=== PATIENT | female | born 1965 | race Caucasian/White ===

== ENCOUNTER 2017-11-30 00:55 | Outpatient (CLI) | payer OTHER, SELFPAY ==
--- NOTE | 2017-11-30 11:40 | DI.MRI_ITS ---
SYMPTOMS/DIAGNOSIS: RT KNEE PAIN, INSTABILITY, ? MENISCUS TEAR MRI OF THE RIGHT KNEE: Routine noncontrast examination was performed. The anterior cruciate and posterior cruciate ligaments appear intact as do the medial and lateral collateral ligaments. There is marked thickening and hyperintense signal within the patellar tendon. There does appear to be some disruption of the fibers of the patellar tendon internally. There is mild edema seen in the soft tissues surrounding the patellar tendon. The medial and lateral retinaculum are intact. There is mild increased T 2 signal within the popliteus tendon suspicious for tendinosis. There is no evidence of a meniscal tear. The articular cartilage is well maintained. The marrow signal shows no evidence of an occult fracture or avascular necrosis. There is a small joint effusion present. There is a small popliteal cyst measuring 2.2 cm in length. The muscles show normal signal and size. IMPRESSION: 1. Severe patellar tendinitis with findings suspicious for a tear of the internal substance of the tendon proximally. 2. Tendinopathy involving the popliteus tendon. 3. No evidence of a meniscal tear.
== END 2017-11-30 01:15 ==
PROVIDERS: PCP Nurse Practitioner Family; Visit Provider Orthopaedic Surgery
DX: M25.561 Pain in right knee (principal); M25.361 Other instability, right knee; M76.51 Patellar tendinitis, right knee
CPT/HCPCS: 73721

== ENCOUNTER 2017-12-03 11:43 | Emergency (ER) | payer OTHER, SELFPAY ==
[2017-12-03 12:19] VITALS: BP 121/72; PULSE 86; TEMP 36.7; O2SAT 98
[2017-12-03 13:33] VITALS: PULSE 100; RESP 18; TEMP 36.9; O2SAT 96
[2017-12-03] MEDS: Diazepam 5 MG TAB PO (14:59)
[2017-12-03] MEDS: Acetaminophen 500 MG TAB 1000 MG PO (14:59)
[2017-12-03] MEDS: Ketorolac 60 MG/2 ML VIAL IM (14:59)
[2017-12-03] MEDS: Lidocaine 5% Patch 1 PATCH TP (15:02)
--- NOTE | 2017-12-03 15:54 | ED.GENADUL_ITS ---
Discharge Plan Disposition Patient Disposition: HOME Condition: Fair Discharge Details Chief Complaint: Nk/Back Pain Clinical Impression: Back pain Primary Care Provider: Ann Khoury ED Provider: Tracie Harper Home Meds and New Rx's Prescriptions: New diazepam [Valium] 5 mg tablet 5 mg PO TID PRN (Reason: muscle spasm) Qty: 5 RF: 0 Continue lidocaine [Lidoderm] 1 PATCH adhesive patch,medicated 1 patch Topical DIRECTED PRNQty: 5 RF: 0 ibuprofen 600 MG tablet 600 mg PO Q8H PRNQty: 15 RF: 0 Discontinued cyclobenzaprine 10 MG tablet 10 mg PO Q8H PRN (Reason: Spasms) Qty: 15 RF: 0 Discharge Instructions Instructions: Back Pain (ED) Additional Instructions: Encourage hydration. May take Tylenol and/or ibuprofen as needed for discomfort. You may take 1000 mg of Tylenol 4 times daily, 600 mg of ibuprofen 4 times daily. He may take the Valium as prescribed, 3 times daily. This will help with muscle spasm. If he develops fever/chills, increased pain, difficulty walking, sensation changes, change in her bowel or bladder habits or other new/worsening symptoms please seek care urgently once again. Please keep upcoming appointment with physical therapy and occupational health Referrals: Ann Khoury, [employer] [Primary Care Provider] - Discharge Data Discharge Date/Time-TO BE ENTERED AT DEPARTURE: 12/03/17 16:24 Medical Decision Making MDM Narrative Medical decision making narrative: Patient presents today with chief complaint of acute on chronic back pain. Had a severe exacerbation proximally 4 days ago after lifting. Since that time has had pain primarily on the right side of her back that radiates on the right buttock. Patient is ambulate with an antalgic gait. She does appear uncomfortable on exam. Pain is maximal near the area of L4 but is worse lateral to this. Pain maximal near the right SI joint. No saddle paresthesias. Good sensation lower extremities. 5 out of 5 strength in lower extremities. Reflexes are equal bilaterally in the lower extremities. No change in bowel or bladder habits. Patient reports she is responded well to muscle relaxers and anti-inflammatories in the past. Reports she has been to the emergency department once for similar episode at which time she received IM Toradol. Reports that this worked very well for her and is requesting a repeat dose of this. Patient has palpable muscle spasm. We will give her Toradol, Tylenol, apply Lidoderm patch and give oral Valium. Discussed this plan with the patient who is in agreement. I encouraged gentle stretching and frequent gentle mobility to help with muscle spasm. After the patient received Valium, Toradol, Tylenol and Lidoderm patches feeling much improved. Feels that she still has twinges. However, overall the pain is much improved and she feels she is ready to go home at this time. Patient will be discharged with Valium to help with muscle relaxation. Advised that she stop the Flexeril. Advised that she may not drive when taking the Valium. I did discuss Tylenol and ibuprofen use as well as [id number] topical patches that may be of benefit to help with her discomfort. We discussed new/worsening symptoms once he care urgently once again. Advised to keep her upcoming appointment with physical therapy and occupational health in 2 days time. All of her questions and concerns were addressed and she is in agreement with this plan. Ambulating out of department appears much improved, no longer ambulating with antalgic gait HPI - General Adult General Mode of arrival: ambulatory . Date/Time Provider Initiated Documentation: 12/03/17 13:44 . Limitations to Documentation: no limitations . Information obtained by: patient and family . HPI Narrative: Patient is a pleasant 52-year-old female, accompanied by her , with chief complaint of acute on chronic back pain. Patient reports that she has had back pain historically and has had issues with sciatica. 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 She was evaluated by occupational health the following day who prescribed Flexeril. She reports that typically Flexeril and Motrin works very well in alleviating her symptoms. Has been taking them as prescribed. However, despite this she reports that her pain has been increasing. Reports the pain is not debilitating but she is having difficulty with basic daily function secondary to pain. Reports the pain is radiating down the right buttock and she has tingling in the right buttock. Denies any change in her bowel or bladder habits. Denies any fevers or chills. Denies any fall or trauma to the back. Denies any altered sensation in her extremities. Has not noted weakness in her extremities. She reports that she has been laying low for the past few days. Does feel that when she is ambulatory her pain can improve going from a more central position to ambulating her pain can be excruciating. Last took ibuprofen and Flexeril around 3 AM. Related Data Previous Rx's Medication Instructions Recorded ibuprofen 600 mg PO Q8H PRN #15 tab-cap 04/06/17 lidocaine [Lidoderm] 1 patch TOPICAL DIRECTED PRN #5 04/06/17 patch diazepam [Valium] 5 mg PO TID PRN #5 tab 12/03/17 Allergies Allergy/AdvReac Type Severity Reaction Status Date / Time sulfamethoxazole Allergy Severe Anaphylaxsi Unverified 11/30/17 15:30 [From Bactrim] s trimethoprim [From Bactrim] Allergy Severe Anaphylaxsi Unverified 11/30/17 15:30 s General Stated Complaint: Nk/Back Pain NICK: 3 Review of Systems Constitutional Reports as per HPI, Denies chills, Reports difficulty sleeping (Patient reports of back pain has been making it difficult for her to sleep) and Denies fever(s) Cardiovascular Denies chest pain and Denies dyspnea Respiratory Denies cough and Denies dyspnea Gastrointestinal Denies abdominal pain, Denies change in bowel habits, Denies nausea and Denies vomiting Genitourinary Reports as per HPI and Denies urinary incontinence Musculoskeletal Reports as per HPI Integumentary/Breasts Denies rash Neurologic Reports as per HPI PFSH Family History Father Colon cancer Mother Cerebrovascular accident Medical History Lumbar strain (Acute) Right shoulder strain (Acute) Depression (Resolved) Perimenopause Social History Smoking/Tobacco Use Status: Never Surgical History Fasciotomy, Foot Exam Const General: cooperative, healthy appearing, uncomfortable (Patient appears uncomfortable, is bending forward and leaning to the left slightly in attempt to find comfortable position for her back), no acute distress, well developed and well groomed Nutritional Appearance: average body habitus Orientation: alert and awake Eyes General: appearance normal, both eyes and all related structures Neck Neck: normal visual inspection, full ROM and nontender Chest Chest: normal inspection of the chest Resp Effort & Inspection: normal respiratory effort, able to speak in complete sentences and no respiratory distress Auscultation: clear to auscultation bilaterally Cardio Rate: regular rate Rhythm: regular rhythm Heart Sounds: S1 normal and S2 normal GI Inspection: normal to inspection and non-distended Palpation: not firm, no guarding and nontender Back/Spine/Pelvis Back: no CVA tenderness Cervical Spine: normal cervical lordosis and cervical ROM normal Thoracic/Lumbar Spine: No thoracic and lumbar spine normal to inspection ( Patient has discomfort with palpation in the area of L4. Pain worse lateral, particular of the right side), No thoraco-lumbar ROM normal (Pain particular with forward flexion), No straight leg raise negative bilaterally (Patient is able to straight leg raise the right side approximately 30?, left to 45?), lumbar spinal tenderness and straight leg raise positive Pelvis: no pain with anterior-posterior compression, no pain with lateral compression, no buttock ecchymosis and no buttock tenderness Sacroiliac joints: on the right tender to palpation Skin General skin exam: no rashes or lesions noted Lesions: no lesions Rashes: no rashes Trauma: no lacerations or abrasions Neuro General: alert and awake Cognition: normal cognition Speech: speech normal Gait: antalgic Motor: muscle tone normal throughout and strength 5/5 throughout Sensory Exam: no sensory deficits noted (No saddle paresthesias) Coordination: [id number] test normal Extrem General: normal to inspection, normal capillary refill, no joint enlargement, no clubbing, cyanosis or edema, no pedal edema and no calf tenderness Psych Appearance: grossly normal and well kempt Mental Status: mental status grossly normal Speech and Movement: speech and movement normal Mood: congruent mood Affect: normal affect Course Vital Signs Temperature 36.7 C 12/03/17 12:19 Pulse 86 12/03/17 12:19 Blood Pressure 121/72 12/03/17 12:19 Pulse Oximetry 98 12/03/17 12:19 Temperature 36.9 C 12/03/17 13:33 Pulse 100 H 12/03/17 13:33 Respiratory Rate 18 12/03/17 13:33 Blood Pressure 121/72 12/03/17 12:19 Pulse Oximetry 96 12/03/17 13:33
[2017-12-03] MEDS: Diazepam 5 MG TAB 15 MG PO (16:08)
== END 2017-12-03 16:24 | disposition home or self-care (01) ==
PROVIDERS: Emergency Provider Physician Assistant; PCP Nurse Practitioner Family
DX: M54.5 Low back pain (principal); G89.29 Other chronic pain; X50.0XXA Overexertion from strenuous movement or load, initial encounter; Y99.0 Civilian activity done for income or pay
CPT/HCPCS: 96372; 99284; J1885

== ENCOUNTER 2018-03-13 17:05 | Emergency (ER) | payer OTHER, SELFPAY ==
[2018-03-13 17:09] VITALS: BP 134/78; PULSE 77; RESP 16; TEMP 36.9; O2SAT 95
--- NOTE | 2018-03-13 17:14 | W.ED.GENAD ---
Discharge Plan Disposition Patient Disposition: HOME Condition: Fair Discharge Details Chief Complaint: EyeProblem Clinical Impression: Hordeolum externum left upper eyelid Primary Care Provider: Ann Khoury ED Provider: Tracie Harper Home Meds and New Rx's Prescriptions: Continued naproxen sodium [Aleve] 220 mg Capsule 220 mg PO BID PRNRF: 0 Discharge Instructions Instructions: Stye (ED) Additional Instructions: Warm compresses frequently to left eye. Wash with baby shampoo. Tylenol and/or Ibuprofen as needed for discomfort. Please follow up with primary care next week if not improving. If you develop increased pain, visual changes, fevers/chills, spreading of the redness or other new/worsening symptoms please seek care urgently once again. Referrals: Ida Zeng [Emergency Nurse] - Discharge Data Discharge Date/Time-TO BE ENTERED AT DEPARTURE: 03/13/18 17:44 Medical Decision Making Patient is a 52 year old female, accompanied by her , with c/c of left eye discomfort that began yesterday. Has felt pressure to the lateral aspect of her eye, particularly with blinking or movement. No FB sensation, no trauma. States that she noted this yesterday afternoon while at rest. Has had some tearing, no purulent discharge. No fevers/chills. No visual changes. On exam, patient has a stye to the lateral upper lid with small amount of swelling associated with this. No discharge. Eye is not injected. Pupils equal, round, reactive. EOM intact. Visual acuity preformed by nursing staff, equal bilaterally. Using Tonopen, pressures were measured. Pressure in left eye 16. No evidence of periorbital cellulitis. Advised that her symptoms and swelling are most consistent with stye. Advised warm compresses, tylenol/Ibuprofen, washing the eye with baby shampoo. Discussed new/worsening sytmpoms in depth and when to seek care urgently once again. All of her questions and concerns were addressed, she is in agreement with this plan. She will follow up [facility] primary care in one week if not improving. HPI General Mode of arrival: ambulatory. Date/Time Provider Initiated Documentation: 03/13/18 17:13. Limitations to Documentation: no limitations. Information obtained by: patient and family. History of Present Illness 52 year old F presents to the emergency department with the chief complaint of left eye discomfort, described as moderate, with intensity rated at 5. Quality is described as aching, and is localized to the eyes. Patient reports no radiation. Patient started experiencing this day(s) and it has been constant. No relieving factors improve symptom(s), No exacerbating factors reported . Patient notes no other symptoms.; denies chest pain, cough, fever/chills, headaches, nausea/vomiting and rash. Patient did receive the following treatments prior to arrival, none Related Data Home Medications Medication Instructions Recorded Confirmed naproxen sodium [Aleve] 220 mg PO BID PRN 03/13/18 03/13/18 Allergies Allergy/AdvReac Type Severity Reaction Status Date / Time sulfamethoxazole Allergy Severe Anaphylaxsi Unverified 03/13/18 17:12 [From Bactrim] s trimethoprim [From Bactrim] Allergy Severe Anaphylaxsi Unverified 03/13/18 17:12 s General Stated Complaint: EyeProblem NICK: 4 Review of Systems Constitutional Reports as per HPI and Denies headache(s) Eyes Reports as per HPI, Reports change in vision (blurred with tearing), Reports eye discharge (has been teary intermittently), Reports irritation, Reports itchy eyes (left lateral eye), Denies loss of peripheral vision, Denies loss of vision and Denies photophobia ENT Reports as per HPI, Denies headache(s), Denies nasal congestion and Denies nasal discharge Cardiovascular Reports as per HPI, Denies chest pain and Denies dyspnea Respiratory Reports as per HPI, Denies cough and Denies dyspnea Gastrointestinal Reports as per HPI, Denies abdominal pain, Denies change in bowel habits, Denies nausea and Denies vomiting Integumentary/Breasts Reports as per HPI and Denies rash Neurologic Denies headache(s) and Denies loss of vision Allergic/Immunologic Reports itchy eyes (left lateral eye) [facility] Medical History Lumbar strain (Acute) Depression (Resolved) Right shoulder strain (Resolved) Perimenopause Surgical History Fasciotomy, Foot Social History household members: spouse and children 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 [employer] Smoking/Tobacco Use Status: Never Exam Const General: cooperative, healthy appearing, comfortable, no acute distress, well developed and well groomed Nutritional Appearance: average body habitus and well nourished Orientation: alert and awake [facility] Head: normal to inspection, normocephalic and atraumatic Ears: hearing grossly normal bilaterally, external ears normal and TM's normal bilaterally General nose exam: external nose normal and nares normal Face and sinus: normal facial exam, sinuses nontender and face symmetric Mouth: oral mucosae normal, lip normal, tongue normal, oropharynx normal and moist mucous membranes Teeth and gingiva: dentition normal Throat: posterior oropharynx normal, tonsils normal and uvula midline Eyes Eyelids: eyelid abnormality left upper eyelid swelling, tenderness and other (stye along lateral boarder) Conjunctivae: conjunctivae normal Sclera: sclerae normal Pupils: PERRL EOM: EOM intact bilaterally Neck Neck: normal visual inspection, full ROM, no lymphadenopathy and no meningeal signs Resp Effort & Inspection: normal respiratory effort, able to speak in complete sentences and no respiratory distress Auscultation: clear to auscultation bilaterally, no rales, no rhonchi and no wheezes Cardio Rate: regular rate Rhythm: regular rhythm Heart Sounds: S1 normal and S2 normal Skin General skin exam: no rashes or lesions noted Neuro General: alert and awake Cognition: normal cognition Speech: speech normal Gait: normal gait Psych Appearance: grossly normal and well kempt Mental Status: mental status grossly normal Speech and Movement: speech and movement normal Course Vital Signs Temperature 36.9 C 03/13/18 17:09 Pulse 77 03/13/18 17:09 Respiratory Rate 16 03/13/18 17:09 Blood Pressure 134/78 03/13/18 17:09 Pulse Oximetry 95 03/13/18 17:09 Temperature 36.9 C 03/13/18 17:09 Temperature Source Skin 03/13/18 17:09 Pulse 77 03/13/18 17:09 Respiratory Rate 16 03/13/18 17:09 Respiratory Effort Non-Labored 03/13/18 17:11 Blood Pressure 134/78 03/13/18 17:09 Pulse Oximetry 95 03/13/18 17:09 Pain Level 5 03/13/18 17:09
--- NOTE | 2018-03-14 13:35 | ED.GENADUL_ITS ---
Discharge Plan Disposition Patient Disposition: HOME Condition: Fair Discharge Details Chief Complaint: EyeProblem Clinical Impression: Hordeolum externum left upper eyelid Primary Care Provider: Ann Khoury ED Provider: Tracie Harper Home Meds and New Rx's Prescriptions: Continued naproxen sodium [Aleve] 220 mg Capsule 220 mg PO BID PRNRF: 0 Discharge Instructions Instructions: Stye (ED) Additional Instructions: Warm compresses frequently to left eye. Wash with baby shampoo. Tylenol and/or Ibuprofen as needed for discomfort. Please follow up with primary care next week if not improving. If you develop increased pain, visual changes, fevers/chills, spreading of the redness or other new/worsening symptoms please seek care urgently once again. Referrals: Ida Zeng [Emergency Nurse] - Discharge Data Discharge Date/Time-TO BE ENTERED AT DEPARTURE: 03/13/18 17:44 Medical Decision Making Patient is a 52 year old female, accompanied by her , with c/c of left eye discomfort that began yesterday. Has felt pressure to the lateral aspect of her eye, particularly with blinking or movement. No FB sensation, no trauma. States that she noted this yesterday afternoon while at rest. Has had some tearing, no purulent discharge. No fevers/chills. No visual changes. On exam, patient has a stye to the lateral upper lid with small amount of swelling associated with this. No discharge. Eye is not injected. Pupils equal, round, reactive. EOM intact. Visual acuity preformed by nursing staff, equal bilaterally. Using Tonopen, pressures were measured. Pressure in left eye 16. No evidence of periorbital cellulitis. Advised that her symptoms and swelling are most consistent with stye. Advised warm compresses, tylenol/Ibuprofen, washing the eye with baby shampoo. Discussed new/worsening sytmpoms in depth and when to seek care urgently once again. All of her questions and concerns were addressed, she is in agreement with this plan. She will follow up [facility] primary care in one week if not improving. HPI General Mode of arrival: ambulatory . Date/Time Provider Initiated Documentation: 03/13/18 17:13 . Limitations to Documentation: no limitations . Information obtained by: patient and family . History of Present Illness 52 year old F presents to the emergency department with the chief complaint of left eye discomfort, described as moderate, with intensity rated at 5. Quality is described as aching, and is localized to the eyes. Patient reports no radiation. Patient started experiencing this day(s) and it has been constant. No relieving factors improve symptom(s), No exacerbating factors reported . Patient notes no other symptoms.; denies chest pain, cough, fever/chills, headaches, nausea/vomiting and rash. Patient did receive the following treatments prior to arrival, none Related Data Home Medications Medication Instructions Recorded Confirmed naproxen sodium [Aleve] 220 mg PO BID PRN 03/13/18 03/13/18 Allergies Allergy/AdvReac Type Severity Reaction Status Date / Time sulfamethoxazole Allergy Severe Anaphylaxsi Unverified 03/13/18 17:12 [From Bactrim] s trimethoprim [From Bactrim] Allergy Severe Anaphylaxsi Unverified 03/13/18 17:12 s General Stated Complaint: EyeProblem NICK: 4 Review of Systems Constitutional Reports as per HPI and Denies headache(s) Eyes Reports as per HPI, Reports change in vision (blurred with tearing), Reports eye discharge (has been teary intermittently), Reports irritation, Reports itchy eyes (left lateral eye), Denies loss of peripheral vision, Denies loss of vision and Denies photophobia ENT Reports as per HPI, Denies headache(s), Denies nasal congestion and Denies nasal discharge Cardiovascular Reports as per HPI, Denies chest pain and Denies dyspnea Respiratory Reports as per HPI, Denies cough and Denies dyspnea Gastrointestinal Reports as per HPI, Denies abdominal pain, Denies change in bowel habits, Denies nausea and Denies vomiting Integumentary/Breasts Reports as per HPI and Denies rash Neurologic Denies headache(s) and Denies loss of vision Allergic/Immunologic Reports itchy eyes (left lateral eye) [facility] Medical History Lumbar strain (Acute) Depression (Resolved) Right shoulder strain (Resolved) Perimenopause Surgical History Fasciotomy, Foot Social History household members: spouse and children 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 [employer] Smoking/Tobacco Use Status: Never Exam Const General: cooperative, healthy appearing, comfortable, no acute distress, well developed and well groomed Nutritional Appearance: average body habitus and well nourished Orientation: alert and awake [facility] Head: normal to inspection, normocephalic and atraumatic Ears: hearing grossly normal bilaterally, external ears normal and TM's normal bilaterally General nose exam: external nose normal and nares normal Face and sinus: normal facial exam, sinuses nontender and face symmetric Mouth: oral mucosae normal, lip normal, tongue normal, oropharynx normal and moist mucous membranes Teeth and gingiva: dentition normal Throat: posterior oropharynx normal, tonsils normal and uvula midline Eyes Eyelids: eyelid abnormality left upper eyelid swelling, tenderness and other (stye along lateral boarder) Conjunctivae: conjunctivae normal Sclera: sclerae normal Pupils: PERRL EOM: EOM intact bilaterally Neck Neck: normal visual inspection, full ROM, no lymphadenopathy and no meningeal signs Resp Effort & Inspection: normal respiratory effort, able to speak in complete sentences and no respiratory distress Auscultation: clear to auscultation bilaterally, no rales, no rhonchi and no wheezes Cardio Rate: regular rate Rhythm: regular rhythm Heart Sounds: S1 normal and S2 normal Skin General skin exam: no rashes or lesions noted Neuro General: alert and awake Cognition: normal cognition Speech: speech normal Gait: normal gait Psych Appearance: grossly normal and well kempt Mental Status: mental status grossly normal Speech and Movement: speech and movement normal Course Vital Signs Temperature 36.9 C 03/13/18 17:09 Pulse 77 03/13/18 17:09 Respiratory Rate 16 03/13/18 17:09 Blood Pressure 134/78 03/13/18 17:09 Pulse Oximetry 95 03/13/18 17:09 Temperature 36.9 C 03/13/18 17:09 Temperature Source Skin 03/13/18 17:09 Pulse 77 03/13/18 17:09 Respiratory Rate 16 03/13/18 17:09 Respiratory Effort Non-Labored 03/13/18 17:11 Blood Pressure 134/78 03/13/18 17:09 Pulse Oximetry 95 03/13/18 17:09 Pain Level 5 03/13/18 17:09
== END 2018-03-13 17:44 | disposition home or self-care (01) ==
PROVIDERS: Emergency Provider Physician Assistant; PCP Nurse Practitioner Family
DX: H00.014 Hordeolum externum left upper eyelid (principal)
CPT/HCPCS: 99282

== ENCOUNTER 2018-04-20 00:13 | Outpatient (CLI) | payer OTHER, SELFPAY ==
--- NOTE | 2018-04-20 11:34 | DI.MRI_ITS ---
SYMPTOM/DIAGNOSIS: RT KNEE PAIN, PATELLAR TENDINITIS RIGHT KNEE MRI: 04/20/18 MRI examination of the knee was performed according to the usual protocol. No significant bony signal abnormality seen. The articular cartilage appears fairly well maintained as visualized. No cruciate ligament tear is seen. No meniscal tear is seen. Comparison with previous MRI of 11/30/17 again shows markedly abnormal appearance of the patellar tendon with marked intrasubstance signal abnormality and marked thickening of the tendon. The findings appear similar to the previous examination with perhaps slightly smaller portion of the tendon involved with these abnormalities. Previous examination also showed abnormal signal associated with the popliteus muscle and tendon and these findings are unchanged. CONCLUSION: Fairly stable appearance of patellar tendinitis and popliteus tendinitis. No gross interval change or slight interval improvement in the appearance of the patellar tendon in comparison with 11/30/17.
== END 2018-04-20 00:33 ==
PROVIDERS: PCP Nurse Practitioner Family; Visit Provider Orthopaedic Surgery
DX: M25.561 Pain in right knee (principal); M76.51 Patellar tendinitis, right knee
CPT/HCPCS: 73721

== ENCOUNTER 2018-08-10 15:40 | Emergency (ER) | payer BC, SELFPAY ==
[2018-08-10 15:43] VITALS: BP 127/78; PULSE 97; RESP 16; TEMP 36.8; O2SAT 97
--- NOTE | 2018-08-10 15:56 | DI.RAD_ITS ---
SYMPTOMS/DIAGNOSIS: PERSISTENT COUGH PA AND LATERAL CHEST: Comparison is made with February,. The cardiac and mediastinal contours have a normal appearance. The lungs are well inflated and clear. No infiltrate or effusion is seen. IMPRESSION: Negative chest x-ray.
--- NOTE | 2018-08-10 15:58 | W.ED.GENAD ---
Discharge Plan Disposition Patient Disposition: HOME Condition: Improving Discharge Details Chief Complaint: RespSymp Clinical Impression: Persistent cough for 3 weeks or longer Primary Care Provider: Mona Rosado V ED Provider: Reymundo Santiago Home Meds and New Rx's Prescriptions: New prednisone 20 mg tablet 40 mg PO DAILY 5 Days Qty: 10 RF: 0 benzonatate [Tessalon Perles] 100 mg capsule 100 mg PO BID-TID PRN (Reason: cough) Qty: 14 RF: 0 Discharge Instructions Instructions: Acute Cough (ED) Additional Instructions: May use provided albuterol inhaler as instructed during times of illness to attenuate cough. Tessalon as needed for cough. Please take prednisone as prescribed. Follow-up with regular doctor if not improving in 7 to 10 days time. Return to the ER for any acute concerns. Medical Decision Making 52-year-old female presents with history of having bronchitis per her report 3 weeks ago and now with 2 weeks of persistent postinfectious cough. Is irritated and dry. She is afebrile, well-appearing with normal oxygenation. No wheezing on exam. Likely post bronchitic irritative cough, must exclude underlying mass or infiltrate and patient referred for chest X ray which is unremarkable for acute findings. Will treat with albuterol inhaler, Tessalon Perles, brief burst of prednisone. She understands homecare as well as follow-up and return precautions. HPI General Mode of arrival: ambulatory. Date/Time Provider Initiated Documentation: 08/10/18 15:49. Limitations to Documentation: no limitations. Information obtained by: patient. History of Present Illness 52 year old F presents to the emergency department with the chief complaint of Cough, persistent for 3 weeks, described as moderate, Quality is described as dull, and is localized to the chest. Patient started experiencing this day(s) and it has been intermittent. No relieving factors improve symptom(s), No exacerbating factors reported . Patient notes no other symptoms. and cough; denies chest pain and fever/chills. Patient did receive the following treatments prior to arrival, none Related Data Home Medications Medication Instructions Recorded Confirmed benzonatate [Tessalon Perles] 100 mg PO BID-TID PRN #14 cap 08/10/18 prednisone 40 mg PO DAILY 5 Days #10 tab 08/10/18 Previous Rx's Medication Instructions Recorded benzonatate [Tessalon Perles] 100 mg PO BID-TID PRN #14 cap 08/10/18 prednisone 40 mg PO DAILY 5 Days #10 tab 08/10/18 Allergies Allergy/AdvReac Type Severity Reaction Status Date / Time sulfamethoxazole Allergy Severe Anaphylaxsi Unverified 08/10/18 15:48 [From Bactrim] s trimethoprim [From Bactrim] Allergy Severe Anaphylaxsi Unverified 08/10/18 15:48 s General Stated Complaint: RespSymp NICK: 4 Review of Systems Review of Systems No production of sputum, no fever, no vomiting. No headache or shortness of breath. 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 Pleasant, well groomed, interactive. HEAD: Normocephalic, atraumatic ENT: Mucous membranes moist, oropharynx unremarkable, External ear exam unremarkable EYES: PERRL, EOMI NECK: Full ROM, no ROD, no menigismus CHEST/RESP: Nontender, clear to auscultation bilateral, no wheeze/rhonchi/rales. Cough noted CARDIOVASCULAR: RRR, no murmur, rub chuyita. 2+ Rad pulse bilateral ABDOMEN: Soft, nontender, no mass. +Bowel sounds EXT: Full ROM, no edema, no rash Neuro: Grossly normal neurologic exam, conversant, interactive. Psych: Speech fluent, thoughts congruent, affect normal Course Vital Signs Temperature 36.8 C 08/10/18 15:43 Pulse 97 H 08/10/18 15:43 Respiratory Rate 16 08/10/18 15:43 Blood Pressure 127/78 08/10/18 15:43 Pulse Oximetry 97 08/10/18 15:43 Temperature 36.8 C 08/10/18 15:43 Temperature Source Skin 08/10/18 15:43 Pulse 97 H 08/10/18 15:43 Respiratory Rate 16 08/10/18 15:43 Respiratory Effort 08/10/18 15:49 Respiratory Depth Normal 08/10/18 15:49 Blood Pressure 127/78 08/10/18 15:43 Blood Pressure Position Sitting 08/10/18 15:43 Pulse Oximetry 97 08/10/18 15:43 Oxygen Delivery Method Room Air 08/10/18 15:43 Oxygen Flow Rate 0 08/10/18 15:43 Pain Level 0 08/10/18 15:43
--- NOTE | 2018-08-10 16:01 | ED.GENADUL_ITS ---
Discharge Plan Disposition Patient Disposition: HOME Condition: Improving Discharge Details Chief Complaint: RespSymp Clinical Impression: Persistent cough for 3 weeks or longer Primary Care Provider: Mona Rosado V ED Provider: Reymundo Santiago Home Meds and New Rx's Prescriptions: New prednisone 20 mg tablet 40 mg PO DAILY 5 Days Qty: 10 RF: 0 benzonatate [Tessalon Perles] 100 mg capsule 100 mg PO BID-TID PRN (Reason: cough) Qty: 14 RF: 0 Discharge Instructions Instructions: Acute Cough (ED) Additional Instructions: May use provided albuterol inhaler as instructed during times of illness to attenuate cough. Tessalon as needed for cough. Please take prednisone as prescribed. Follow-up with regular doctor if not improving in 7 to 10 days time. Return to the ER for any acute concerns. Medical Decision Making 52-year-old female presents with history of having bronchitis per her report 3 weeks ago and now with 2 weeks of persistent postinfectious cough. Is irritated and dry. She is afebrile, well-appearing with normal oxygenation. No wheezing on exam. Likely post bronchitic irritative cough, must exclude underlying mass or infiltrate and patient referred for chest X ray which is unremarkable for acute findings. Will treat with albuterol inhaler, Tessalon Perles, brief burst of prednisone. She understands homecare as well as follow-up and return precautions. HPI General Mode of arrival: ambulatory . Date/Time Provider Initiated Documentation: 08/10/18 15:49 . Limitations to Documentation: no limitations . Information obtained by: patient . History of Present Illness 52 year old F presents to the emergency department with the chief complaint of Cough, persistent for 3 weeks, described as moderate, Quality is described as dull, and is localized to the chest. Patient started experiencing this day(s) and it has been intermittent. No relieving factors improve symptom(s), No exacerbating factors reported . Patient notes no other symptoms. and cough; denies chest pain and fever/chills. Patient did receive the following treatments prior to arrival, none Related Data Home Medications Medication Instructions Recorded Confirmed benzonatate [Tessalon Perles] 100 mg PO BID-TID PRN #14 cap 08/10/18 prednisone 40 mg PO DAILY 5 Days #10 tab 08/10/18 Previous Rx's Medication Instructions Recorded benzonatate [Tessalon Perles] 100 mg PO BID-TID PRN #14 cap 08/10/18 prednisone 40 mg PO DAILY 5 Days #10 tab 08/10/18 Allergies Allergy/AdvReac Type Severity Reaction Status Date / Time sulfamethoxazole Allergy Severe Anaphylaxsi Unverified 08/10/18 15:48 [From Bactrim] s trimethoprim [From Bactrim] Allergy Severe Anaphylaxsi Unverified 08/10/18 15:48 s General Stated Complaint: RespSymp NICK: 4 Review of Systems Review of Systems No production of sputum, no fever, no vomiting. No headache or shortness of breath. 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 Pleasant, well groomed, interactive. HEAD: Normocephalic, atraumatic ENT: Mucous membranes moist, oropharynx unremarkable, External ear exam unremark able EYES: PERRL, EOMI NECK: Full ROM, no ROD, no menigismus CHEST/RESP: Nontender, clear to auscultation bilateral, no wheeze/rhonchi/rales. Cough noted CARDIOVASCULAR: RRR, no murmur, rub chuyita. 2+ Rad pulse bilateral ABDOMEN: Soft, nontender, no mass. +Bowel sounds EXT: Full ROM, no edema, no rash Neuro: Grossly normal neurologic exam, conversant, interactive. Psych: Speech fluent, thoughts congruent, affect normal Course Vital Signs Temperature 36.8 C 08/10/18 15:43 Pulse 97 H 08/10/18 15:43 Respiratory Rate 16 08/10/18 15:43 Blood Pressure 127/78 08/10/18 15:43 Pulse Oximetry 97 08/10/18 15:43 Temperature 36.8 C 08/10/18 15:43 Temperature Source Skin 08/10/18 15:43 Pulse 97 H 08/10/18 15:43 Respiratory Rate 16 08/10/18 15:43 Respiratory Effort 08/10/18 15:49 Respiratory Depth Normal 08/10/18 15:49 Blood Pressure 127/78 08/10/18 15:43 Blood Pressure Position Sitting 08/10/18 15:43 Pulse Oximetry 97 08/10/18 15:43 Oxygen Delivery Method Room Air 08/10/18 15:43 Oxygen Flow Rate 0 08/10/18 15:43 Pain Level 0 08/10/18 15:43
[2018-08-10] MEDS: Albuterol HFA 8 GM 60 PUFF INH IH (16:29)
--- NOTE | 2018-08-10 16:32 | DI.VRAD_ITS ---
EXAM: XR Chest, 2 Views EXAM DATE/TIME: 08/10/2018 3:57 PM CLINICAL HISTORY: 52 years old, female; Signs and symptoms; Other: Perssitent cough TECHNIQUE: Imaging protocol: XR of the chest, 2 views. COMPARISON: CR CHEST 2 VIEWS PA,LAT 03/18/2014 5:50 PM FINDINGS: Lungs: There is minimal scarring the lungs unchanged since 2013. Pleural space: Unremarkable. No pleural effusion. No pneumothorax. Heart/Mediastinum: Unremarkable. No cardiomegaly. Bones/joints: Unremarkable. IMPRESSION: Chronic changes but no acute cardiopulmonary process. Dictated and Authenticated by: Milad Chang MD. Ordering:LIZZY Dwyer MD
[2018-08-10 16:37] VITALS: BP 127/78; PULSE 97; RESP 16; TEMP 36.8; O2SAT 97
== END 2018-08-10 16:37 | disposition home or self-care (01) ==
PROVIDERS: Emergency Provider Emergency Medicine; PCP Family Medicine
DX: R05 Cough (principal)
CPT/HCPCS: 99283; 71046

== ENCOUNTER 2020-03-16 11:23 | Emergency (ER) | payer BC, SELFPAY ==
[2020-03-16 11:38] VITALS: BP 153/99; PULSE 89; RESP 18; TEMP 36.2; O2SAT 98
[2020-03-16] MEDS: Cephalexin 500 MG CAP PO (12:39)
--- NOTE | 2020-03-18 22:26 | W.ED.GENAD ---
Discharge Plan Disposition Patient Disposition: HOME Condition: Stable Discharge Details Clinical Impression: Hordeolum Primary Care Provider: Mona Rosado V ED Provider: Monique Hamilton Home Meds and New Rx's Prescriptions: New cephalexin [Keflex] 500 mg capsule 500 mg PO BID Qty: 14 RF: 0 Discharge Instructions Instructions: Cephalexin (By mouth), Stye (ED) Additional Instructions: Please return immediately to the emergency department if you develop any new or worsening symptoms, if your condition does not improve as expected, or if you become otherwise concerned. It is extremely important that you call soon as possible to make an appointment to be seen in follow-up for this visit by your primary care doctor and with an grassland conservationist. Referrals: Mona Rosado MD [Primary Care Provider] - Discharge Data Discharge Date/Time-TO BE ENTERED AT DEPARTURE: 03/16/20 12:41 Medical Decision Making Mary Figueroa is a 54 y/o woman who [facility] with left upper eyelid pain, swelling c/w with prior stye, not resolving with warm compresses. On exam Pt is well and non-toxic appearing. Vision 20/30 left, 20/25 right, 20/25 b/l. Internal hordeolum left upper eyelid, no other abnormality on eye exam. Exam/hx at this time not c/w foreign body, conjunctivitis, endophthalmitis, pre-septal cellulitis, orbital cellulitis, facial abscess, meningitis. Plan for abx given refractory to warm compresses. Rx keflex. I had a lengthy discussion with Patient regarding return to emergency department precautions, home care, and importance of outpatient follow-up with ophthalmology. Pt verbalizes understanding of the plan and is amenable. Patient discharged to home with clear plan for outpatient follow-up. All questions were answered. Disposition decision was made weighing the risks and benefits of hospitalization versus outpatient treatment, the risk for further decompensation, and the patient's wishes. Medical Records Medical records reviewed: Yes I reviewed the patient's medical records. HPI General Mode of arrival: ambulatory. Date/Time Provider Initiated Documentation: 03/16/20 11:43. Limitations to Documentation: no limitations. Information obtained by: RN notes reviewed and old records reviewed. HPI Narrative: Mary Figueroa is a 54 y/o woman without reported major medical problems presenting to the emergency department with eyelid pain. Pt reports that 3-4 days ago she noticed a pinful bump on her left upper eyelid. Pt reports that she has had styes in the past, and this was typical of her previous stye. She began using warm compresses to the area. Pt reports that she woke up yesterday with clear draingage from eye on her pillow, and thought that styre had burst. She had mild improvement of her eyelid pain, but today pain has returned. Still with upper eyelid bump. No eye pain, no visual changes, no drainage from eye today. No facial swelling. Pt reports that pain from eyelid radiates to her face including below her eye. No fevers, no other pain, no rash, no vomiting. Has been eating and drinking as usual, feels otherwise well and in her usual state of health. Denies trauma or FB to the eye. Related Data Home Medications Medication Instructions Recorded Confirmed cephalexin [Keflex] 500 mg PO BID #14 cap 03/16/20 Previous Rx's Medication Instructions Recorded cephalexin [Keflex] 500 mg PO BID #14 cap 03/16/20 Allergies Allergy/AdvReac Type Severity Reaction Status Date / Time sulfamethoxazole Allergy Severe Anaphylaxsi Unverified 03/16/20 11:42 [From Bactrim] s trimethoprim [From Bactrim] Allergy Severe Anaphylaxsi Unverified 03/16/20 11:42 s General Stated Complaint: EyeProblem NICK: 4 Review of Systems Narrative: Constitutional: denies fevers Eyes: denies eye pain, vision changes, eye redness, reports left upper eyelid pain/swelling as per HPI ENT: denies ear pain, dental pain, sore throat Cardiovascular: denies chest pain Respiratory: denies SOB, cough GI: denies abdominal pain, vomiting, diarrhea : denies flank pain MSK: denies back pain, neck pain, arthralgias, myalgias Skin: denies rash Neuro: denies headaches, numbness, weakness [facility] Medical History (Updated 03/16/20 @ 12:40 by Monique Hamilton MD) Depression Lumbar strain multiple events:2009,2013,2015,04/2017 Perimenopause Right shoulder strain 2005 Surgical History Fasciotomy, Foot 2008 for plantar fascitis Family History Father Colon cancer GI bleed. 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 [place] Do you feel safe at home: Yes Do you feel safe in your relationship?: Yes Exam Narrative Exam Narrative: Constitutional: well and [id number], pleasant, conversing normally HENT: head atraumatic/normocephalic/normal inspection, mucous membranes moist Eyes: conjunctiva normal, sclera normal, pupils 3mm b/l ERRLA, EOM intact and painless, left upper eyelid with 3mm area of edema, mild overlying TTP and erythema, internal hordeolum apparent when lid flipped, no other erythema to lids or face Neck: no stridor, normal ROM, trachea midline Resp: normal work of breathing, speaking in full sentences Cardio: normal rate, normal rhythm Skin: warm, dry, normal color, no rash Neuro: alert, not altered, grossly non-focal, normal tone Ext: moving all extremities equally Psych: normal mood, normal affect, normal behavior Course Vital Signs Vital signs: Vital Signs Temperature 36.2 C L 03/16/20 11:38 Pulse 89 03/16/20 11:38 Respiratory Rate 18 03/16/20 11:38 Blood Pressure 153/99 H 03/16/20 11:38 Pulse Oximetry 98 03/16/20 11:38 Temperature 36.2 C L 03/16/20 11:38 Temperature Source Skin 03/16/20 11:38 Pulse 89 03/16/20 11:38 Respiratory Rate 18 03/16/20 11:38 Respiratory Effort Non-Labored 03/16/20 12:30 Blood Pressure 153/99 H 03/16/20 11:38 Blood Pressure Position Sitting 03/16/20 11:38 Pulse Oximetry 98 03/16/20 11:38 Oxygen Delivery Method Room Air 03/16/20 11:38 Oxygen Flow Rate 0 03/16/20 11:38 Pain Level 8 03/16/20 11:38
== END 2020-03-16 12:41 | disposition home or self-care (01) ==
PROVIDERS: Emergency Provider Student in an Organized Health Care Education/Training Program; PCP Family Medicine
DX: H00.014 Hordeolum externum left upper eyelid (principal)
CPT/HCPCS: 99283

== ENCOUNTER 2020-11-13 14:25 | Emergency (ER) | payer BC, SELFPAY ==
--- NOTE | 2020-11-13 14:30 | DI.RAD_ITS ---
Exam(s) XR CHEST 2V PA LATERAL EXAM: XR CHEST 2V PA LATERAL CLINICAL HISTORY: Congestion, cough TECHNIQUE: 2D digital imaging was performed. COMPARISON: CR XR CHEST 2V PA LATERAL from 08/10/2018 FINDINGS: The heart is not enlarged. The lungs are clear and well expanded. No pleural effusion seen. Mediastin al contours appear intact. IMPRESSION: Normal chest. RADIATION DOSE DELIVERED: Total DLP
[2020-11-13 14:32] VITALS: BP 116/71; PULSE 84; RESP 18; TEMP 37; O2SAT 98
--- NOTE | 2020-11-13 15:00 | ED.GENADUL_ITS ---
Discharge Plan Disposition Patient Disposition: HOME Condition: Stable Discharge Details Clinical Impression: Bronchitis Primary Care Provider: Mona Rosado V ED Provider: Danni Jones Home Meds and New Rx's Prescriptions: New benzonatate [Tessalon Perles] 100 mg capsule 100 mg PO BID-TID PRN (Reason: cough) Qty: 10 RF: 0 Discharge Instructions Instructions: Acute Bronchitis (ED) Additional Instructions: Use inhaler 1-2 puffs every 4-6 hours as needed. Increase oral fluids. Take tylenol or ibuprofen every 4-6 hours as needed. Use tessalon perrles for cough at night or up to three times daily. Chest XR shows no evidence of pneumonia at this time. Follow up with your PCP in 3-5 days or beseen sooner if any worsening. Referrals: Mona Rosado MD [Primary Care Provider] - 1 week Medical Decision Making 55 year old female presents to ED with chief c/o of chest congestion and cough which has worsened over the last 2 weeks. She has beeen taking Nyquil at home for symptoms. She does report sick contacts at home also. She was tested for COvid today at noon. She is fully vaccinated. Reports productive of sputum initially but none now. Denies chest pain. initial lung sounds are clear. Dry spasmodic cough noted. CXR ordered, Diff includes PNA, Bronchitis, Allergies, Viral illness EXAM: XR CHEST 2V PA LATERAL CLINICAL HISTORY: Congestion, cough TECHNIQUE: 2D digital imaging was performed. COMPARISON: CR XR CHEST 2V PA LATERAL from 08/10/2018 FINDINGS: The heart is not enlarged. The lungs are clear and well expanded. No pleural effusion seen. Mediastinal contours appear intact. IMPRESSION: Normal chest. Patient given albuterol inhaler and instructed on use by staff weapons officer. Tessalon perrles as needed for coughing. Instructed on follow up with PCP and home care. Discharged in hemodynamically stable condition. HPI General Mode of arrival: ambulatory . Date/Time Provider Initiated Documentation: 11/13/20 14:29 . Limitations to Documentation: no limitations . Information obtained by: patient and RN notes reviewed . HPI Narrative: 55 year old female presents to ED with chief c/o of chest congestion and cough which has worsened over the last 2 weeks. She has beeen taking Nyquil at home for symptoms. She does report sick contacts at home also. She was tested for COvid today at noon. She is fully vaccinated. Reports productive of sputum initially but none now. Denies chest pain. initial lung sounds are clear. Dry spasmodic cough noted. Related Data Home Medications Medication Instructions Recorded Confirmed benzonatate [Tessalon Perles] 100 mg PO BID-TID PRN #10 cap 11/13/20 Previous Rx's Medication Instructions Recorded benzonatate [Tessalon Perles] 100 mg PO BID-TID PRN #10 cap 11/13/20 Allergies Allergy/AdvReac Type Severity Reaction Status Date / Time sulfamethoxazole Allergy Severe Anaphylaxsi Unverified 11/13/20 14:35 [From Bactrim] s trimethoprim [From Bactrim] Allergy Severe Anaphylaxsi Unverified 11/13/20 14:35 s General Stated Complaint: RespSymp NICK: 4 Review of Systems All systems reviewed & are unremarkable except as noted in HPI and below Respiratory Respiratory: Reports chest congestion, Reports cough, Denies hemoptysis and Denies wheezing Allergic/Immunologic Allergic/Immunologic: Denies wheezing [facility] Medical History (Updated 11/13/20 @ 15:34 by Danni Jones) Depression Lumbar strain multiple events:2009,2013,2015,04/2017 Perimenopause Right shoulder strain 2005 Surgical History Fasciotomy, Foot 2008 for plantar fascitis Family History Father Colon cancer GI bleed. 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 [place] Do you feel safe at home: Yes Do you feel safe in your relationship?: Yes Exam Resp Effort & Inspection: normal respiratory effort, able to speak in complete sentences and cough Quality of cough: dry Auscultation: clear to auscultation bilaterally Course Vital Signs Vital signs: Vital Signs Temperature 37.0 C 11/13/20 14:32 Pulse 84 11/13/20 14:32 Respiratory Rate 18 11/13/20 14:32 Blood Pressure 116/71 11/13/20 14:32 Pulse Oximetry 98 11/13/20 14:32 Temperature 37.0 C 11/13/20 14:32 Temperature Source Skin 11/13/20 14:32 Pulse 84 11/13/20 14:32 Respiratory Rate 18 11/13/20 14:32 Respiratory Effort Non-Labored 11/13/20 14:36 Respiratory Depth Normal 11/13/20 14:36 Blood Pressure 116/71 11/13/20 14:32 Blood Pressure Position Sitting 11/13/20 14:32 Pulse Oximetry 98 11/13/20 14:32 Oxygen Delivery Method Room Air 11/13/20 14:32 Oxygen Flow Rate 0 11/13/20 14:32 Pain Level 0 11/13/20 14:32
[2020-11-13] MEDS: Benzonatate 100 MG CAP PO ×2 (15:41)
[2020-11-13] MEDS: Albuterol HFA 8 GM 60 PUFF INH IH (15:41)
== END 2020-11-13 15:40 | disposition home or self-care (01) ==
PROVIDERS: Emergency Provider Registered Nurse Emergency; PCP Family Medicine
DX: J20.9 Acute bronchitis, unspecified (principal)
CPT/HCPCS: 99283; 71046

== ENCOUNTER 2021-07-06 10:50 | Emergency (ER) | payer OTHER, SELFPAY ==
[2021-07-06 10:52] VITALS: BP 142/76; PULSE 87; RESP 16; TEMP 36.5; O2SAT 98
[2021-07-06] MEDS: Ibuprofen 600 MG TAB PO (11:15)
--- NOTE | 2021-07-06 12:38 | DI.CT_ITS ---
Exam(s) CT HEAD WO EXAM: CT HEAD WO CLINICAL HISTORY: fall, [place], left vision blurred, davis. TECHNIQUE: Imaging Protocol: Axial computed tomography images with coronal and sagittal reformatted images were created and reviewed COMPARISON: No exams were available for comparison FINDINGS: There are skin clips across a left posterior parietal scalp region laceration. There are no skull fractures nor fluid in the visualized paranasal sinuses. There is no evidence of intracranial hemorrhage, mass effect, or shift of midline structures. There are no extra-axial fluid collections. The ventricles are not enlarged or shifted and there is no blo od within the ventricular system nor within the basal cisterns. IMPRESSION: No acute intracranial findings on this noninfused CT scan of the brain. Called by myself to ER. RADIATION DOSE DELIVERED: 690.56mGy.cm Total DLP DATA REPOSITORY: All CT scans at this facility are submitted to the National Radiology Data Registry (NRDR) Dose Index Registry (DIR) with the [employer] (ACR). RADIATION OPTIMIZATION: All CT scans at this facility use at least one of these dose optimization te chniques: automated exposure control; mA and/or kV adjustment per patient size (includes targeted exa ms where dose is matched to clinical indication); or iterative reconstruction.
--- NOTE | 2021-07-06 12:47 | ED.GENADUL_ITS ---
Discharge Plan Disposition Patient Disposition: HOME Condition: Stable Discharge Details Clinical Impression: Head injury Primary Care Provider: Mona Rosado V ED Provider: Elmira Prasad Home Meds and New Rx's Prescriptions: No Action naproxen sodium [Aleve] 220 mg Tablet 440 mg PO HS 0RF Discharge Instructions Instructions: Head Injury (ED) Additional Instructions: Staple removal in 5 to 7 days Ibuprofen and Tylenol as needed for pain Please return with vomiting, worsening headache, fever, chills, or should you have new or worsening complaints Please follow-up with ophthalmology tomorrow should you have new or worse complaints Referrals: Mona Rosado MD [Primary Care Provider] - Discharge Data Discharge Date/Time-TO BE ENTERED AT DEPARTURE: 07/06/21 12:57 Medical Decision Making Patient started having some dysuria from her left eye became concerned, I offered patient CT imaging of her head and she said she feel more comfortable performing CT, I discussed the risk of radiation CT does not show evidence of acute abnormality Her symptoms have since resolved Her vision is intact, pupils are equal round reactive to light and accommodation Her visual acuity is within normal limits She has no visible tearing from her eyes or moves Her extraocular muscles are intact She tolerated staple placement without incident She has [address]. Return precautions discussed and patient expressed understanding, discharged home in stable condition, ambulatory with steady gait Medical Records Medical records reviewed: Yes I reviewed the patient's medical records. Lab Data Lab results reviewed: Yes I reviewed the patient's lab results. HPI General Date/Time Provider Initiated Documentation: 07/06/21 10:55 . HPI Narrative: This 55-year-old female presents status post prior slip and fall. She states that she hit her head on the corner of a windowsill. Denies loss of consciousness. Reports mild Blurred Vision to Her Left Eye. She Denies Any Vision Change. She Denies Any Current Headache or History of Coagulopathy. denies any additional complaints this time. Pain over laceration site which she acquired from the fall reportedly. Has been ambulatory since the event .occurred approximately an hour prior to arrival. Related Data Home Medications Medication Instructions Recorded Confirmed naproxen sodium 220 mg tablet 440 mg PO HS 07/06/21 07/06/21 (Aleve) Allergies Allergy/AdvReac Type Severity Reaction Status Date / Time sulfamethoxazole Allergy Severe Anaphylaxsi Unverified 07/06/21 10:57 [From Bactrim] s trimethoprim [From Bactrim] Allergy Severe Anaphylaxsi Unverified 07/06/21 10:57 s General Stated Complaint: HeadInjury NICK: 3 Review of Systems All systems reviewed & are unremarkable except as noted in HPI and below PFSH All Active Problems (Updated 07/06/21 @ 12:54 by HARRY Emerson) Bronchitis (Acute) Head injury (Acute) Patellar tendonitis of right knee (Chronic) Significant improvement of right patellar tendinitis. Patient is advised to stay away from Cipro or other similar antibiotics because they can predispose to inflammation in the tendons. She also understands that injection of corticosteroid into the patellar tendon is fraught with complications. Follow-up with me as needed Medical History (Updated 07/06/21 @ 12:54 by HARRY Emerson) Depression Lumbar strain multiple events:2009,2013,2015,04/2017 Perimenopause Right shoulder strain 2005 Surgical History Fasciotomy, Foot 2008 for plantar fascitis Family History Father Colon cancer GI bleed. 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 Laceration noted Other: No hemotympanum, no hematoma, no crepitus Eyes Pupils: PERRL Neck Other: No midline tenderness Resp Effort & Inspection: normal respiratory effort Auscultation: clear to auscultation bilaterally Cardio Rate: regular rate Rhythm: regular rhythm GI Inspection: normal to inspection Auscultation: normal bowel sounds Skin General skin exam: no rashes or lesions noted Neuro General: patient alert and patient oriented x3 Cranial Nerves: CN's II-XI intact bilaterally Cognition: normal cognition Speech: speech normal Gait: normal gait Motor: strength 5/5 throughout Sensory Exam: no sensory deficits noted Extrem General: normal to inspection Course Vital Signs Vital signs: Vital Signs Temperature 36.5 C 07/06/21 10:52 Pulse 87 07/06/21 10:52 Respiratory Rate 16 07/06/21 10:52 Blood Pressure 142/76 H 07/06/21 10:52 Pulse Oximetry 98 07/06/21 10:52 Temperature 36.5 C 07/06/21 10:52 Temperature Source Temporal Artery Scan 07/06/21 10:52 Pulse 87 07/06/21 10:52 Respiratory Rate 16 07/06/21 10:52 Respiratory Effort Non-Labored 07/06/21 11:05 Blood Pressure 142/76 H 07/06/21 10:52 Blood Pressure Position Sitting 07/06/21 10:52 Pulse Oximetry 98 07/06/21 10:52 Oxygen Delivery Method Room Air 07/06/21 10:52 Oxygen Flow Rate 0 07/06/21 10:52 Pain Level 5 07/06/21 10:52 Procedures Laceration Laceration 1: Site: scalp Size (cm): 2 Description: linear Amount of anesthesia used (mL): 0 Skin layer closed with: other (staple) Technique: simple, interrupted
== END 2021-07-06 12:57 | disposition home or self-care (01) ==
PROVIDERS: Emergency Provider Physician Assistant; PCP Family Medicine
DX: S09.8XXA Other specified injuries of head, initial encounter (principal); S01.01XA Laceration without foreign body of scalp, initial encounter; W18.39XA Other fall on same level, initial encounter; H53.8 Other visual disturbances
CPT/HCPCS: 12001; 99284; 70450; 99283

== ENCOUNTER 2021-08-02 17:32 | Emergency (ER) | payer BC, SELFPAY ==
[2021-08-02 17:44] VITALS: BP 145/75; PULSE 65; RESP 16; TEMP 36.4; O2SAT 99
--- NOTE | 2021-08-02 17:45 | RT.EKG_ITS ---
APPROVED REPORT Exam: Resting ECG Reason for Exam: sob Patient Location: E HR:66 bpm ECG Measurements Heart Rate 66 AXIS OK 201 P 12 QRSd 78 QRS 31 QT 384 T 21 QTc 402 Conclusion Sinus rhythm...normal P axis, V-rate 60- 99 sinus rhythm, normal axis, normal intervals, non ischemic
[2021-08-02 17:47] VITALS: RESP 18
[2021-08-02 18:29] LABS: Abs Immature Grans 0.01 10^3/uL (0.0-0.06); Absolute Basophil Count 0.04 10^3/uL (0.0-0.2); Absolute Eosinophil Count 0.11 10^3/uL (0.0-0.7); Absolute Lymphocyte Count 1.66 10^3/uL (1.2-3.4); Absolute Monocyte Count 0.44 10^3/uL (0.1-0.8); Absolute Neutrophil Count 2.41 10^3/uL (1.2-6.7); Basophils % 0.9; Eosinophils % 2.4; HCT 47.8 % (36.0-46.0); HGB 15.7 g/dL (11.2-15.7); Immature Grans % 0.2; Lymphocytes % 35.5; MCH 28.2 pg (27.0-33.0); MCHC 32.8 % (32.0-36.0); MCV 86 fL (80-95); MPV 10.7 fL (8.0-11.0); Monocytes % 9.4; Neutrophils % 51.6; Platelet Count 236 10^3/uL (130-400); RBC 5.56 10^6/uL (3.93-5.22); RDW 12.9 % (11.7-14.6); RDW-SD 40.2 fL; WBC 4.67 10^3/uL (4.4-10.8)
[2021-08-02 18:51] LABS: PTT Activated 24.9 sec (21.0-27.5); Prothrombin Time 10.3 sec (9.3-11.0)
[2021-08-02 18:57] LABS: ALT 33 U/L (14-59); AST 19 U/L (15-37); Albumin 3.9 g/dL (3.4-5.0); Alkaline Phosphatase 103 U/L (46-116); BUN 18 mg/dL (7-18); Bilirubin, Total 0.2 mg/dL (0.2-1.0); CREATININE 0.9 mg/dL (0.55-1.02); Calcium 8.8 mg/dL (8.5-10.1); Chloride 103 mmol/L (98-107); Glucose 96 mg/dL (74-106); Potassium 3.9 mmol/L (3.5-5.1); Sodium 141 mmol/L (136-145); Total Protein 8.2 g/dL (6.4-8.2); Troponin I < 50 ng/L (<or=60)
[2021-08-02 19:06] LABS: D-Dimer 763 ng/mlFEU (<500)
--- NOTE | 2021-08-02 19:36 | ED.GENADUL_ITS ---
Discharge Plan Disposition Patient Disposition: HOME Condition: Stable Discharge Details Clinical Impression: COVID-19, Chest pain Primary Care Provider: Mona Rosado V ED Provider: Clif Carrera Home Meds and New Rx's Prescriptions: Continued naproxen sodium [Aleve] 220 mg Tablet 440 mg PO HS Discharge Instructions Instructions: Chest Pain (ED), COVID-19 (Coronavirus Disease 2019) (ED) Additional Instructions: Your CTA of your chest today does not reveal any signs of a pulmonary embolism. Please watch for new or worsening symptoms and return to the ER for any con cerns. Otherwise I strongly recommend reaching out to your primary care provider tomorrow to discuss your ER visit, ongoing symptoms, need for outpatient reevaluation. Medical Decision Making 55-year-old female, no significant past medical history, presents having been diagnosed with COVID on the of this month, subsequently began having chest pressure, dry cough, chest discomfort over the past 3 days, constant, shortness of breath worse with exertion. Spoke with her PCP and sent to the ER to rule out PE. Clinically she appears well, nontoxic, pulse in the 60s, O2 sat of 99% on room air. Will obtain IV access, routine screening laboratory values including a single troponin and EKG given the duration of her symptoms as well as a D-dimer. If D-dimer is positive will pursue CTA of the chest. Laboratory values reveal a D-dimer of 763, otherwise grossly unremarkable. CTA reveals mild changes of COVID-19 pneumonia but no PE. EKG unremarkable. Troponin less than 50. Patient remains hemodynamically stable, O2 sat is 99% on room air. She speaks in full sentences and lungs are clear to auscultation. We discussed her work-up including the negative CTA for PE. Standard discharge and return precautions were provided. Patient understands, is agreeable to this plan, and has no additional questions or concerns upon discharge. This documentation was generated using [employer] system, please disregard any oddities of phrase or misspellings. Medical Records Medical records reviewed: Yes I reviewed the patient's medical records. Imaging Data Radiologic Study: Attestation: I personally reviewed and interpreted this imaging study as follows: Imaging: CT Scan Radiologist's impression: PROCEDURE INFORMATION: Exam: CTA Chest With Contrast Exam date and time: 08/02/2021 8:32 PM Age: 55 years old Clinical indication: Other: Covid +, SOB, elevated d dimer TECHNIQUE: Imaging protocol: Computed tomographic angiography of the chest with contrast. 3D rendering (Not supervised by radiologist): MIP and/or 3D reconstructed images were created by the technologist. Radiation optimization: All CT scans at this facility use at least one of these dose optimization techniques: automated exposure control; mA and/or kV adjustment per patient size (includes targeted exams where dose is matched to clinical indication); or iterative reconstruction. Contrast material: VISIPAQUE 320; Contrast volume: 75 ml; Contrast route: INTRAVENOUS (IV); COMPARISON: CR XR CHEST 2V PA LATERAL 11/13/2020 2:59 PM FINDINGS: Pulmonary arteries: No pulmonary embolism identified. Aorta: No thoracic aortic aneurysm. Thyroid: Normal sized thyroid gland. 8 mm x 6 mm indeterminate hypoattenuating left thyroid lesion, image 7 of series 4. Lungs: Small regions of vague peripherally located ground- glass pulmonary density in the right paraspinal region on image 42 of series 4 and along the right lateral chest wall on image 35 of series 4. No region of letty pulmonary consolidation. Pleural spaces: No pleural effusion or pneumothorax. Heart: Normal sized heart. Lymph nodes: No pathologically enlarged mediastinal or hilar lymph nodes.Liver: Small indeterminate hypoattenuating hepatic lesion, incompletely characterized but most likely a small cyst or hemangioma. Gallbladder and bile ducts: Gallbladder only partially visualized. Calcified gallstones. Bones/joints: Lower ribs partially excluded from view and incompletely evaluated. Otherwise, no acute fracture seen among the bones of the chest. Spinal degenerative change with discogenic degeneration, endplate irregularities, and small anterior osteophytes at multiple levels. Soft tissues: No gross soft tissue mass or fluid collection seen in the chest wall. IM PRESSION: 1. Two small regions of vague peripherally located hazy ground-glass opacity on the right. Although nonspecific, mild changes of COVID-19 pneumonia could have this appearance. 2. No pulmonary embolism identified. 3. Gallstones. Thank you for allowing us to participate in the care of your patient. Lab Data Lab results reviewed: Yes I reviewed the patient's lab results. Labs: Laboratory Tests Range/Units 08/02/21 08/02/21 08/02/21 18:12 18:12 18:12 WBC (4.4-10.8) 10^3/uL 4.67 RBC (3.93-5.22) 10^6/uL 5.56 H Hgb (11.2-15.7) g/dL 15.7 Hct (36.0-46.0) % 47.8 H MCV (80-95) fL 86 MCH (27.0-33.0) pg 28.2 MCHC (32.0-36.0) % 32.8 RDW (11.7-14.6) % 12.9 Plt Count (130-400) 10^3/uL 236 MPV (8.0-11.0) fL 10.7 Immature Gran % 0.2 Neutrophils % 51.6 Lymphocytes % 35.5 Monocytes % 9.4 Eosinophils % 2.4 Basophils % 0.9 Nucleated RBC % (0.0-0.3) % 0.0 Absolute Neutrophils (1.2-6.7) 10^3/uL 2.41 Absolute Lymphocytes (1.2-3.4) 10^3/uL 1.66 Absolute Monocytes (0.1-0.8) 10^3/uL 0.44 Absolute Eosinophils (0.0-0.7) 10^3/uL 0.11 Absolute Basophils (0.0-0.2) 10^3/uL 0.04 PT (9.3-11.0) sec 10.3 INR (0.9-1.1) 1.0 APTT (21.0-27.5) sec 24.9 D-Dimer (<500) ng/mlFEU 763 H Sodium (136-145) mmol/L 141 Potassium (3.5-5.1) mmol/L 3.9 Chloride (98-107) mmol/L 103 Carbon Dioxide (21.0-32.0) mmol/L 28.0 Anion Gap (3-11) mmol/L 10.0 BUN (7-18) mg/dL 18 Creatinine (0.55-1.02) mg/dL 0.9 Estimated GFR/1.73 m2 (mL/min/1.73m2) >= 60.00 Glucose (74-106) mg/dL 96 Calcium (8.5-10.1) mg/dL 8.8 Total Bilirubin (0.2-1.0) mg/dL 0.2 AST (15-37) U/L 19 ALT (14-59) U/L 33 Alkaline Phosphatase (46-116) U/L 103 Troponin I (<or=60) ng/L < 50 Total Protein (6.4-8.2) g/dL 8.2 Albumin (3.4-5.0) g/dL 3.9 ECG Data Attestation: I personally reviewed and interpreted this ECG (s) as follows: Interpretation: Please see official read by ER attending. Sinus rhythm, ventricular rate of 66, no STEMI. HPI General Mode of arrival: ambulatory . Date/Time Provider Initiated Documentation: 08/02/21 17:35 . Limitations to Documentation: no limitations . Information obtained by: patient . History of Present Illness 55 year old F presents to the emergency department with the chief complaint of sob/cough/chest pressure, described as mild, with intensity rated at 3. Quality is described as aching (pressure), and is localized to the chest. Patient reports no radiation. Patient started experiencing this day(s) (3) and it has been constant. No relieving factors improve symptom(s), Other factors that worsen symptoms (coughing) . Patient notes chest pain (pressure) and cough. Patient did receive the following treatments prior to arrival, none Related Data Home Medications Medication Instructions Recorded Confirmed naproxen sodium 220 mg tablet 440 mg PO HS 07/06/21 08/02/21 (Aleve) Allergies Allergy/AdvReac Type Severity Reaction Status Date / Time sulfamethoxazole Allergy Severe Anaphylaxsi Verified 08/02/21 17:50 [From Bactrim] s trimethoprim [From Bactrim] Allergy Severe Anaphylaxsi Verified 08/02/21 17:50 s General Stated Complaint: SOB NICK: 3 Review of Systems Constitutional Constitutional: Denies fever(s), Denies headache(s) and Denies weakness ENT Ears, Nose, Mouth, and Throat: Denies headache(s) and Denies neck pain Cardiovascular Cardiovascular: Reports chest pain (pressure) and Reports dyspnea Respiratory Respiratory: Reports cough and Reports dyspnea Gastrointestinal Gastrointestinal: Denies abdominal pain, Denies nausea and Denies vomiting Musculoskeletal Musculoskeletal: Denies back pain and Denies neck pain Integumentary/Breasts Skin/Breast: Denies rash Neurologic Neurologic: Denies headache(s) and Denies weakness PFSH All Active Problems (Updated 08/02/21 @ 21:17 by HARRY Otero) COVID-19 (Acute) Chest pain (Acute) Encounter for re-check of laceration wound (Acute) Laceration (Acute) Bronchitis (Acute) Head injury (Acute) Patellar tendonitis of right knee (Chronic) Significant improvement of right patellar tendinitis. Patient is advised to stay away from Cipro or other similar antibiotics because they can predispose to inflammation in the tendons. She also understands that injection of corticosteroid into the patellar tendon is fraught with complications. Follow-up with me as needed Medical History (Updated 08/02/21 @ 21:17 by HARRY Otero) Depression Lumbar strain multiple events:2009,2013,2015,04/2017 Perimenopause Right shoulder strain 2005 Surgical History Fasciotomy, Foot 2008 for plantar fascitis Family History Father Colon cancer GI bleed. 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 [employer] Do you feel safe at home: Yes Do you feel safe in your relationship?: Yes Exam Const General: cooperative, healthy appearing, comfortable and no acute distress Orientation: alert and awake HENMT Head: normal to inspection, normocephalic and atraumatic Face and sinus: normal facial exam Mouth: moist mucous membranes Throat: posterior oropharynx normal Eyes General: appearance normal, both eyes and all related structures Conjunctivae: conjunctivae normal Neck Neck: normal visual inspection, full ROM, trachea midline and supple Resp Effort & Inspection: normal respiratory effort, able to speak in complete sentences and cough Quality of cough: dry (mild) Cardio Rate: regular rate Rhythm: regular rhythm GI Palpation: soft and nontender Back/Spine/Pelvis Back: No back tenderness Skin General skin exam: no rashes or lesions noted Neuro General: patient alert, patient awake, moves all extremities and no focal motor deficits Cognition: normal cognition Speech: speech normal Gait: normal gait Motor: muscle tone normal throughout Sensory Exam: no sensory deficits noted Extrem General: normal to inspection, full ROM, capillary refill normal, no pedal edema and no calf tenderness Psych Appearance: grossly normal Mental Status: mental status grossly normal Course Vital Signs Vital signs: Vital Signs Temperature 36.4 C L 08/02/21 17:44 Pulse 65 08/02/21 17:44 Respiratory Rate 16 08/02/21 17:44 Blood Pressure 145/75 H 08/02/21 17:44 Pulse Oximetry 99 08/02/21 17:44 Temperature 36.4 C L 08/02/21 17:44 Temperature Source Tympanic 08/02/21 17:44 Pulse 65 08/02/21 17:44 Respiratory Rate 18 08/02/21 17:47 Respiratory Effort Non-Labored 08/02/21 17:47 Respiratory Depth Normal 08/02/21 17:47 Respiratory Pattern Normal 08/02/21 17:47 Blood Pressure 145/75 H 08/02/21 17:44 Blood Pressure Position Sitting 08/02/21 17:44 Pulse Oximetry 99 08/02/21 17:44 Oxygen Delivery Method Room Air 08/02/21 17:44 Oxygen Flow Rate 0 08/02/21 17:44 Pain Level 0 08/02/21 17:47 Lab/Test Results Lab/Test Results: Laboratory Tests Range/Units 08/02/21 08/02/21 08/02/21 18:12 18:12 18:12 WBC (4.4-10.8) 10^3/uL 4.67 RBC (3.93-5.22) 10^6/uL 5.56 H Hgb (11.2-15.7) g/dL 15.7 Hct (36.0-46.0) % 47.8 H MCV (80-95) fL 86 MCH (27.0-33.0) pg 28.2 MCHC (32.0-36.0) % 32.8 RDW (11.7-14.6) % 12.9 Plt Count (130-400) 10^3/uL 236 MPV (8.0-11.0) fL 10.7 Immature Gran % 0.2 Neutrophils % 51.6 Lymphocytes % 35.5 Monocytes % 9.4 Eosinophils % 2.4 Basophils % 0.9 Nucleated RBC % (0.0-0.3) % 0.0 Absolute Neutrophils (1.2-6.7) 10^3/uL 2.41 Absolute Lymphocytes (1.2-3.4) 10^3/uL 1.66 Absolute Monocytes (0.1-0.8) 10^3/uL 0.44 Absolute Eosinophils (0.0-0.7) 10^3/uL 0.11 Absolute Basophils (0.0-0.2) 10^3/uL 0.04 PT (9.3-11.0) sec 10.3 INR (0.9-1.1) 1.0 APTT (21.0-27.5) sec 24.9 D-Dimer (<500) ng/mlFEU 763 H Sodium (136-145) mmol/L 141 Potassium (3.5-5.1) mmol/L 3.9 Chloride (98-107) mmol/L 103 Carbon Dioxide (21.0-32.0) mmol/L 28.0 Anion Gap (3-11) mmol/L 10.0 BUN (7-18) mg/dL 18 Creatinine (0.55-1.02) mg/dL 0.9 Estimated GFR/1.73 m2 (mL/min/1.73m2) >= 60.00 Glucose (74-106) mg/dL 96 Calcium (8.5-10.1) mg/dL 8.8 Total Bilirubin (0.2-1.0) mg/dL 0.2 AST (15-37) U/L 19 ALT (14-59) U/L 33 Alkaline Phosphatase (46-116) U/L 103 Troponin I (<or=60) ng/L < 50 Total Protein (6.4-8.2) g/dL 8.2 Albumin (3.4-5.0) g/dL 3.9
--- NOTE | 2021-08-02 19:53 | DI.CT_ITS ---
Exam(s) CT CHEST PE CTA EXAM: CT CHEST PE CTA CLINICAL HISTORY: Covid +, sob, elevated dimer. TECHNIQUE: Imaging Protocol: CT angiography of the chest was performed using pulmonary embolus kinsey col. Multi planar reconstructions were performed. CONTRAST MATERIAL: Intravenous: 75 mL Visipaque-320 COMPARISON: CR XR CHEST 2V PA LATERAL from 11/13/2020 FINDINGS: CHEST: PULMONARY ARTERIES: There are no intraluminal filling defects to suggest acute pulmonary emboli. LUNGS: No prominent infiltrates nor pleural effusions. However, in the peripheral aspect the right l ashly there are very subtle areas of ground-glass infiltrate. One of these is in the lateral segment t he right middle lobe. The other is in the right paraspinal-medial basal segment of the right lower l obe.. There are no pleural effusions. MEDIASTINUM: There is no hilar nor mediastinal adenopathy. Thyroid size is normal but appears to cont ain subtle nodules. CARDIAC: Heart size is normal. There is no pericardial effusion. No shift of the interventricular s eptum.Caliber of the thoracic aorta is within normal limits. No evidence of aortic dissection. The l eft vertebral artery arises as an independent vessel off the aortic arch. PARTIALLY VISUALIZED UPPERMOST ABDOMEN: Gallstones noted. No gallbladder wall edema. No pericholecy stic fluid. OSSEOUS: No significant osseous lesions.. IMPRESSION: 1. No evidence of acute pulmonary emboli. No evidence of pulmonary infarction.No pleural effusions. 2. Subtle peripherally located ground-glass infiltrates in the right lung, both in the lateral segmen t of the right middle lobe and medial basal segment of the right lower lobe. Recommend testing for C ovid-19 3. No evidence of aortic dissection. No obvious right heart strain. Gallstones incidentally noted. RADIATION DOSE DELIVERED: 442.26mGy.cm Total DLP DATA REPOSITORY: All CT scans at this facility are submitted to the National Radiology Data Registry (NRDR) Dose Index Registry (DIR) with the [employer] (ACR). RADIATION OPTIMIZATION: All CT scans at this facility use at least one of these dose optimization te chniques: automated exposure control; mA and/or kV adjustment per patient size (includes targeted exa ms where dose is matched to clinical indication); or iterative reconstruction.
[2021-08-02] MEDS: Normal Saline Flush 10 ML SYR IVP (20:39)
--- NOTE | 2021-08-02 21:03 | DI.VRAD_ITS ---
PROCEDURE INFORMATION: Exam: CTA Chest With Contrast Exam date and time: 08/02/2021 8:32 PM Age: 55 years old Clinical indication: Other: Covid +, SOB, elevated d dimer TECHNIQUE: Imaging protocol: Computed tomographic angiography of the chest with contrast. 3D rendering (Not supervised by radiologist): MIP and/or 3D reconstructed images were created by the technologist. Radiation optimization: All CT scans at this facility use at least one of these dose optimization techniques: automated exposure control; mA and/or kV adjustment per patient size (includes targeted exams where dose is matched to clinical indication); or iterative reconstruction. Contrast material: VISIPAQUE 320; Contrast volume: 75 ml; Contrast route: INTRAVENOUS (IV); COMPARISON: CR XR CHEST 2V PA LATERAL 11/13/2020 2:59 PM FINDINGS: Pulmonary arteries: No pulmonary embolism identified. Aorta: No thoracic aortic aneurysm. Thyroid: Normal sized thyroid gland. 8 mm x 6 mm indeterminate hypoattenuating left thyroid lesion, image 7 of series 4. Lungs: Small regions of vague peripherally located ground-glass pulmonary density in the right paraspinal region on image 42 of series 4 and along the right lateral chest wall on image 35 of series 4. No region of letty pulmonary consolidation. Pleural spaces: No pleural effusion or pneumothorax. Heart: Normal sized heart. Lymph nodes: No pathologically enlarged mediastinal or hilar lymph nodes. Liver: Small indeterminate hypoattenuating hepatic lesion, incompletely characterized but most likely a small cyst or hemangioma. Gallbladder and bile ducts: Gallbladder only partially visualized. Calcified gallstones. Bones/joints: Lower ribs partially excluded from view and incompletely evaluated. Otherwise, no acute fracture seen among the bones of the chest. Spinal degenerative change with discogenic degeneration, endplate irregularities, and small anterior osteophytes at multiple levels. Soft tissues: No gross soft tissue mass or fluid collection seen in the chest wall. IMPRESSION: 1. Two small regions of vague peripherally located hazy ground-glass opacity on the right. Although nonspecific, mild changes of COVID-19 pneumonia could have this appearance. 2. No pulmonary embolism identified. 3. Gallstones. Dictated and Authenticated by: Demian Castillo MD. Ordering:SYEDA Menezes MD
[2021-08-02] MEDS: Ketorolac 30 MG/ML VIAL IVP (21:30)
== END 2021-08-02 21:28 | disposition home or self-care (01) ==
PROVIDERS: Emergency Provider Physician Assistant; PCP Family Medicine
DX: U07.1 COVID-19 (principal); R07.9 Chest pain, unspecified; R06.02 Shortness of breath; R79.1 Abnormal coagulation profile
CPT/HCPCS: 36415; 71275; 80053; 93005; 96374; 99285; 84484; 85025; 85379; 85610; 85730; 93010; 99284; J1885

== ENCOUNTER 2021-12-13 16:00 | Outpatient (REF) | payer BC, SELFPAY | END 2021-12-13 16:01 | disposition home or self-care (01) | LOC: LBN 16:00 | PROVIDERS: PCP Family Medicine; Visit Provider Nurse Practitioner Family | DX: J02.9 Acute pharyngitis, unspecified (principal) | CPT/HCPCS: 87070 ==

== ENCOUNTER 2022-06-09 10:51 | Outpatient (REF) | payer BC, SELFPAY ==
--- NOTE | 2022-06-09 09:00 | PAPFT_PTH ---
PATIENT: Mary Figueroa LOC: [facility]#:[id number] AGE/SX: 56/F ROOM: RE06/09/[address]: Jaylin Davis : 1965 BED: DIS: 06/09/2022 SPEC #: [id number] RECD: 06/09/22 16:17 STATUS: MORELIA REJessica #: [id number] PEDRO: 06/09/22 09:[address]: Jaylin Davis DEPT: [facility] Cytology RECD BY: Elmira Moore ENTERED: 06/09/22 16:17 SP TYPE: PAPFT OTHR DR: Mona Rosado V Tissues: 1 - CX/ENDOCX FOR PAP SMEARS Procedures: PAP THIN PREP/UVM Screening HPV DNA PROBE Comments: [id number]
== END 2022-06-09 10:52 | disposition home or self-care (01) ==
LOC: NCHCN 10:51
PROVIDERS: PCP Family Medicine; Visit Provider Nurse Practitioner Family
DX: Z12.4 Encounter for screening for malignant neoplasm of cervix (principal); Z11.51 Encounter for screening for human papillomavirus (HPV); Z01.419 Encounter for gynecological examination (general) (routine) without abnormal findings
CPT/HCPCS: 88142; 87624

== ENCOUNTER 2022-06-16 09:32 | Outpatient (REF) | payer BC, SELFPAY ==
[2022-06-16 17:47] LABS: Calculated LDL 190 mg/dL (<100); Cholesterol 263 mg/dL (<200); Glucose 118 mg/dL (74-106); HDL Cholesterol 57 mg/dL (40-60); Triglyceride 82 mg/dL (<150)
== END 2022-06-16 09:33 | disposition home or self-care (01) ==
LOC: NCHCN 09:32
PROVIDERS: PCP Family Medicine; Visit Provider Nurse Practitioner Family
DX: Z00.00 Encounter for general adult medical examination without abnormal findings (principal); Z13.1 Encounter for screening for diabetes mellitus; Z13.220 Encounter for screening for lipoid disorders
CPT/HCPCS: 80061; 82947

== ENCOUNTER 2022-06-21 01:23 | Outpatient (CLI) | payer BC, SELFPAY ==
--- NOTE | 2022-06-21 15:45 | DI.MAMMO_ITS ---
Exam(s) MAMMO SCREENING EXAM: MAMMO SCREENING CLINICAL HISTORY: SCREENING, Z12.39 TECHNIQUE: Mammograms were interpreted according to the usual protocol including computer analysis w [employer] CAD system, tomosynthesis and C-view imaging. COMPARISON: 2013 and 2017 FINDINGS: The breasts are composed of scattered fibroglandular densities, Breast Density category B. No suspicious masses or suspicious microcalcifications are seen. No skin thickening or abnormal axillary lymph nodes are seen. There has been no significant change from prior exams. IMPRESSION: BI-RADS Category 1, Negative mammogram Yearly screening mammography is recommended. Breast Density - Category B, scattered fibroglandular densities. A negative radiographic report should not delay biopsy if a dominant or clinically suspicious mass is present. Up to ten percent of cancers are not identified on mammography. A negative report may reinforce clinical impression. Adenosis and dense breasts may obscure an underlying neoplasm. False positive reports average 6 to 10%. Patient will receive a letter notifying them of these results.
== END 2022-06-21 01:43 ==
LOC: DI 01:24
PROVIDERS: PCP Family Medicine; Visit Provider Nurse Practitioner Family
DX: Z12.31 Encounter for screening mammogram for malignant neoplasm of breast (principal)
CPT/HCPCS: 77063; 77067

== ENCOUNTER 2022-10-29 20:09 | Emergency (ER) | payer BC, SELFPAY ==
[2022-10-29 20:12] VITALS: BP 142/84; PULSE 90; RESP 18; TEMP 36.8; O2SAT 99
--- NOTE | 2022-10-29 21:04 | W.ED.GENAD ---
Discharge Plan Disposition Patient Disposition: Home Condition: Stable Discharge Details Clinical Impression: Acute effusion of left ear, Sinusitis Primary Care Provider: Mona Rosado V ED Provider: Danni Jones Home Meds and New Rx's Prescriptions: New azithromycin 250 mg tablet See Rx Instructions .ROUTE .COMPLEX 6 Days Qty: 6 0RF Rx Instructions: For 250 mg dose pack: take 500 mg today (day 1), then 250 mg for 4 days (days 2-5) No Action naproxen sodium [Aleve] 220 mg Tablet 440 mg PO HS Patient Comments: not taking per pt 10/29/22 Discharge Instructions Instructions: Sinusitis (ED), Ear Infection (ED) Additional Instructions: You may get Flonase and use it once daily or similar nasal spray [id number], use a decongestant such as Sudafed. Please take the antibiotic as directed. You were given the first dose here in the department. Fluid behind your left ear. No bugs or other foreign bodies. Follow up with primary care provider in 3-5 days. Return to ED sooner if any worsening or concerns. Increase oral fluids. Okay for allowing them to care for you today , Have a great night! Hope you feel better! Referrals: Mona Rosado MD [Primary Care Provider] - Return if symptoms worsen Medical Decision Making 57-year-old female. She reports crinkly sounds . She reports that she felt maybe something fly into her ear. On examination small hair in the external ear canal, no other foreign body, the hair was removed she does have a fluid effusion behind the ear. She also reports some sinus type complaints slight runny nose, headache and slight throat pain. No fever chills or does have a past medical history of GERD, Depression, and right shoulder strain. Instructed to take decongestant [id number] such as Sudafed or Flonase. We will give azithromycin Z-Arcenio for possible sinusitis. Patient verbalized understanding. This text was generated using Web Wonksation system, please disregard any oddities of phrase or misspellings. HPI General Mode of arrival: ambulatory. Date/Time Provider Initiated Documentation: 10/29/22 20:44. Limitations to Documentation: no limitations. Information obtained by: patient, family, RN notes reviewed and old records reviewed. HPI Narrative: 57-year-old female. She reports crinkly sounds . She reports that she felt maybe something fly into her ear. On examination small hair in the external ear canal, no other foreign body, the hair was removed she does have a fluid effusion behind the ear. She also reports some sinus type complaints slight runny nose, headache and slight throat pain. No fever chills or does have a past medical history of GERD, Depression, and right shoulder strain. Related Data Home Medications Medication Instructions Recorded Confirmed naproxen sodium 220 mg tablet 440 mg PO HS 07/06/21 08/02/21 (Aleve) azithromycin 250 mg tablet See Rx Instructions PO .COMPLEX 6 10/29/22 days #6 tabs Previous Rx's Medication Instructions Recorded azithromycin 250 mg tablet See Rx Instructions PO .COMPLEX 6 10/29/22 days #6 tabs Allergies Allergy/AdvReac Type Severity Reaction Status Date / Time sulfamethoxazole Allergy Severe Anaphylaxsi Verified 10/29/22 20:14 [From Bactrim] s trimethoprim [From Bactrim] Allergy Severe Anaphylaxsi Verified 10/29/22 20:14 s General Stated Complaint: EarProblem NICK: 4 Review of Systems Constitutional Constitutional: Reports as per HPI and Reports headache(s) ENT Ears, Nose, Mouth, and Throat: Reports as per HPI, Denies vertigo, Reports otalgia and Reports headache(s) Comments: Sinus tenderness, headache Cardiovascular Cardiovascular: Denies chest pain and Denies dyspnea Respiratory Respiratory: Denies cough and Denies dyspnea Neurologic Neurologic: Denies vertigo and Reports headache(s) PFSH All Active Problems (Updated 10/29/22 @ 21:10 by Danni Jones NP) COVID-19 (Acute) Acute effusion of left ear (Acute) Sinusitis (Acute) Encounter for re-check of laceration wound (Acute) Laceration (Acute) Bronchitis (Acute) Patellar tendonitis of right knee (Chronic) Significant improvement of right patellar tendinitis. Patient is advised to stay away from Cipro or other similar antibiotics because they can predispose to inflammation in the tendons. She also understands that injection of corticosteroid into the patellar tendon is fraught with complications. Follow-up with me as needed Medical History (Updated 10/29/22 @ 21:10 by Danni Jones NP) Depression Lumbar strain multiple events:2009,2013,2015,04/2017 Perimenopause Right shoulder strain 2005 Surgical History Fasciotomy, Foot 2008 for plantar fascitis Family History Father Colon cancer GI bleed. 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 [place] Do you feel safe at home: Yes Do you feel safe in your relationship?: Yes Exam HENMT Ears: external ears normal, TM normal on the left, EAC's normal (Small Hair removed from left EAC) and TM abnormal wth effusion, with fluid behind the TM on the left and retracted; not erythematous Course Vital Signs Vital signs: Vital Signs Temperature 36.8 C 10/29/22 20:12 Pulse 90 10/29/22 20:12 Respiratory Rate 18 10/29/22 20:12 Blood Pressure 142/84 H 10/29/22 20:12 Pulse Oximetry 99 10/29/22 20:12 Temperature 36.8 C 10/29/22 20:12 Temperature Source Temporal Artery Scan 10/29/22 20:12 Pulse 90 10/29/22 20:12 Respiratory Rate 18 10/29/22 20:12 Blood Pressure 142/84 H 10/29/22 20:12 Blood Pressure Position Sitting 10/29/22 20:12 Pulse Oximetry 99 10/29/22 20:12 Oxygen Delivery Method Room Air 10/29/22 20:12 Oxygen Flow Rate 0 10/29/22 20:12 Pain Level 3 10/29/22 20:12
[2022-10-29] MEDS: Azithromycin 250 MG TAB 500 MG PO (21:07)
== END 2022-10-29 21:16 | disposition home or self-care (01) ==
PROVIDERS: Emergency Provider Registered Nurse Emergency; PCP Family Medicine
DX: J32.9 Chronic sinusitis, unspecified (principal); H65.192 Other acute nonsuppurative otitis media, left ear
CPT/HCPCS: 99283; 99284

== ENCOUNTER 2022-10-30 17:29 | Emergency (ER) | payer BC, SELFPAY ==
[2022-10-30] VITALS (26 sets, daily range): BP systolic 118–139; BP diastolic 60–76; PULSE 101–121; RESP 17–31; TEMP 37.2; O2SAT 93–99
--- NOTE | 2022-10-30 17:30 | RT.EKG_ITS ---
APPROVED REPORT Exam: Resting ECG Reason for Exam: SOB Patient Location: E HR:111 bpm ECG Measurements Heart Rate 111 AXIS MN 146 P 46 QRSd 80 QRS 18 QT 312 T 20 QTc 425 Conclusion Sinus tachycardia...rate> 99 Consider left ventricular hypertrophy...(R aVL+S V3) >2.20mV sinus tachycardia, normal axis, normal intervals, non ischemic
--- NOTE | 2022-10-30 18:00 | DI.RAD_ITS ---
Exam(s) XR CHEST 2V PA LATERAL EXAM: XR CHEST 2V PA LATERAL CLINICAL HISTORY: chest pain. TECHNIQUE: 2D digital imaging was performed. COMPARISON: CR XR CHEST 2V PA LATERAL from 11/13/2020 FINDINGS: 2 views: Heart size is normal. The mediastinum is not widened. There is atelectasis the left lung base. Also mild infiltrate. Right lung is clear. No pleural eff usions. No pulmonary edema. No pneumothorax. IMPRESSION: Right lung base atelectasis and mild infiltrate. DATA REPOSITORY: RADIATION DOSE DELIVERED:
--- NOTE | 2022-10-30 18:01 | ED.GENADUL_ITS ---
Discharge Plan Discharge Details Chief Complaint: SOB Primary Care Provider: Mona Rosado V ED Provider: Eduin Jones Home Meds and New Rx's Prescriptions: No Action azithromycin 250 mg tablet See Rx Instructions .ROUTE .COMPLEX 6 Days Qty: 6 0RF Rx Instructions: For 250 mg dose pack: take 500 mg today (day 1), then 250 mg for 4 days (days 2-5) naproxen sodium [Aleve] 220 mg Tablet 440 mg PO HS Patient Comments: not taking per pt 10/29/22 Medical Decision Making 57-year-old lady presents to the emergency room for evaluation of left-sided chest wall pain. The pain is respirophasic. EKG that was done on arrival revealed a sinus tachycardia with changes consistent with left ventricular hypertrophy. Normal ST segments and T waves no signs of ischemia. Normal intervals. Serial troponins will be ordered. Chest x-ray did not reveal any abnormalities other than bibasilar subsegmental atelectasis. A D-dimer was obtained which was positive therefore CT a PE protocol was ordered. The patient did require Toradol and morphine for the pain. Patient blood work revealed mild leukocytosis, which is nonspecific. HPI General Date/Time Provider Initiated Documentation: 10/30/22 17:34 . HPI Narrative: 57-year-old presents to the emergency room with left-sided chest wall pain. She states that she woke up at 2 in the morning with back pain radiating underneath her left breast. Pain is such that any change in position and movement, deep breathing makes the pain worse. No rash no fevers no chills. No chest pressure per se She was seen in emergency department yesterday and diagnosed with a ear infection and sent home with some antibiotics. Related Data Home Medications Medication Instructions Recorded Confirmed naproxen sodium 220 mg tablet 440 mg PO HS 07/06/21 08/02/21 (Aleve) azithromycin 250 mg tablet See Rx Instructions PO .COMPLEX 6 10/29/22 days #6 tabs Previous Rx's Medication Instructions Recorded azithromycin 250 mg tablet See Rx Instructions PO .COMPLEX 6 10/29/22 days #6 tabs Allergies Allergy/AdvReac Type Severity Reaction Status Date / Time sulfamethoxazole Allergy Severe Anaphylaxsi Verified 10/29/22 20:14 [From Bactrim] s trimethoprim [From Bactrim] Allergy Severe Anaphylaxsi Verified 10/29/22 20:14 s General Stated Complaint: SOB NICK: 3 Review of Systems Narrative: 10 point review of system negative unless otherwise specified in the HPI PFSH All Active Problems (Updated 10/29/22 @ 21:10 by Danni Jones NP) COVID-19 (Acute) Acute effusion of left ear (Acute) Sinusitis (Acute) Encounter for re-check of laceration wound (Acute) Laceration (Acute) Bronchitis (Acute) Patellar tendonitis of right knee (Chronic) Significant improvement of right patellar tendinitis. Patient is advised to stay away from Cipro or other similar antibiotics because they can predispose to inflammation in the tendons. She also understands that injection of corticosteroid into the patellar tendon is fraught with complications. Follow-up with me as needed Medical History (Updated 10/29/22 @ 21:10 by Danni Jones NP) Depression Lumbar strain multiple events:2009,2013,2015,04/2017 Perimenopause Right shoulder strain 2005 Surgical History Fasciotomy, Foot 2008 for plantar fascitis Family History Father Colon cancer GI bleed. 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 Do you feel safe at home: Yes Do you feel safe in your relationship?: Yes Exam Narrative Exam Narrative: General: A,A Ox3, Calm, no apparent distress, well developed, pleasant and cooperative Head Size/Shape: normocephalic, atraumatic Eyes Pupils: PERRLA Extraocular Mobility: intact and symmetrical Conjunctiva: non-injected, anicteric, no discharge Ears, Nose, Throat Nares: patent bilaterally Oral Cavity: moist Neck: no masses, no crepitus Lymph Nodes: no cervical lymphadenopathy Respiratory Respiratory Effort: no dyspnea Exquisite tenderness overlying what appears to be the seventh rib from the back up to the front. No crepitus Auscultation: clear to auscultation bilaterally, normal breath sounds, no wheezing, no rales/crackles Cardiovascular Heart Auscultation: regular rate and rhythm, normal S1, normal S2, no murmurs, no rubs, no gallops, Pulse Quality: +2 equal bilaterally, location(s) Abdomen Inspection and Palpation: soft, non-tender, non-distended, no hepatosplenomegaly Musculoskeletal System Joints, Bones, and Muscles: no deformities Extremities: warm and well-perfused, no cyanosis, capillary refill <2 seconds Skin Skin Inspection: no rash, no lesions, no bruising Neurological Motor: normal tone, normal strength, moving all extremities equally Psychiatric: good insight, good judgement, normal mood and affect Course Vital Signs Vital signs: Vital Signs Temperature 37.2 C 10/30/22 17:32 Pulse 120 H 10/30/22 17:32 Respiratory Rate 20 10/30/22 17:32 Blood Pressure 130/76 10/30/22 17:32 Pulse Oximetry 95 10/30/22 17:32 Temperature 37.2 C 10/30/22 17:32 Temperature Source Tympanic 10/30/22 17:32 Pulse 108 H 10/30/22 17:48 Pulse 113 H 10/30/22 17:50 Respiratory Rate 17 10/30/22 17:50 Respiratory Effort Normal 10/30/22 17:50 Respiratory Depth Normal 10/30/22 17:50 Respiratory Pattern Normal 10/30/22 17:50 Blood Pressure 119/60 10/30/22 17:48 Blood Pressure Mean 75 10/30/22 17:48 Blood Pressure Position Sitting 10/30/22 17:32 Pulse Oximetry 93 10/30/22 17:50 Oxygen Delivery Method Room Air 10/30/22 17:32 Oxygen Flow Rate 0 10/30/22 17:32
[2022-10-30 18:20] LABS: Abs Immature Grans 0.06 10^3/uL (0.0-0.06); Absolute Basophil Count 0.08 10^3/uL (0.0-0.2); Absolute Monocyte Count 0.84 10^3/uL (0.1-0.8); Basophils % 0.5; Eosinophils % 0.1; HCT 46.6 % (36.0-46.0); HGB 15.2 g/dL (11.2-15.7); Immature Grans % 0.4; Lymphocytes % 13.7; MCH 27.9 pg (27.0-33.0); MCHC 32.6 % (32.0-36.0); MCV 86 fL (80-95); MPV 11.2 fL (8.0-11.0); Monocytes % 5.3; Platelet Count 218 10^3/uL (130-400); RBC 5.45 10^6/uL (3.93-5.22); RDW 13.1 % (11.7-14.6); RDW-SD 40.5 fL; WBC 15.81 10^3/uL (4.4-10.8)
[2022-10-30 18:21] LABS: Absolute Eosinophil Count 0.02 10^3/uL (0.0-0.7); Absolute Lymphocyte Count 2.17 10^3/uL (1.2-3.4); Absolute Neutrophil Count 12.65 10^3/uL (1.2-6.7)
[2022-10-30] MEDS: Ketorolac 15 MG/ML VIAL IVP (18:30)
[2022-10-30 18:39] LABS: ALT 23 U/L (14-59); AST 14 U/L (15-37); Albumin 3.6 g/dL (3.4-5.0); Alkaline Phosphatase 96 U/L (46-116); Anion Gap 11.4 mmol/L (3-11); BUN 16 mg/dL (7-18); Bilirubin, Total 0.6 mg/dL (0.2-1.0); CO2 24.6 mmol/L (21.0-32.0); CREATININE 1.1 mg/dL (0.55-1.02); Calcium 9.4 mg/dL (8.5-10.1); Chloride 103 mmol/L (98-107); Estimated GFR 57.88 (mL/min/1.73m2); Glucose 120 mg/dL (74-106); Magnesium 1.8 mg/dL (1.8-2.4); Potassium 3.9 mmol/L (3.5-5.1); Sodium 139 mmol/L (136-145); Troponin I < 50 ng/L (<or=60)
--- NOTE | 2022-10-30 18:41 | DI.VRAD_ITS ---
PROCEDURE INFORMATION: Exam: XR Chest Exam date and time: 10/30/2022 18:31 Age: 57 years old Clinical indication: Other: Chest pain TECHNIQUE: Imaging protocol: Radiologic exam of the chest. Views: 2 views. COMPARISON: CR XR CHEST 2V PA LATERAL 11/13/2020 14:59 FINDINGS: Lungs: Linear bibasilar opacities. No airspace consolidation. Interstitial and vascular crowding appearing technique related. Pleural spaces: No pleural effusion. No pneumothorax. Heart/Mediastinum: No cardiomegaly. Bones/joints: No acute fracture. IMPRESSION: Basilar subsegmental atelectasis. Dictated and Authenticated by: Yadi Mclaughlin MD. Ordering:AYAH Denny MD
--- NOTE | 2022-10-30 18:45 | DI.CT_ITS ---
Exam(s) CT CHEST PE CTA EXAM: CT CHEST PE CTA CLINICAL HISTORY: chest pain. TECHNIQUE: Imaging Protocol: CT angiography of the chest was performed using pulmonary embolus kinsey col. Multi planar reconstructions were performed. CONTRAST MATERIAL: Intravenous: Omnipaque 350 Contrast volume: 100 cc COMPARISON: CT CT CHEST PE CTA from 08/02/2021 FINDINGS: CHEST: PULMONARY ARTERIES: There are no intraluminal filling defects to suggest acute pulmonary emboli. LUNGS: There is atelectasis in both lung bases as well as some mild infiltrate in posterior basal seg ments of both lower lobes.. There are no pleural effusions. No ominous pulmonary nodules. No signi ficant focal findings in the trachea and mainstem bronchi. No bronchiectasis.. MEDIASTINUM: There are slightly prominent lymph nodes in left hilum and subcarinal region. Right hil um unremarkable. There are no enlarged lymph nodes in the anterior mediastinal fat nor in the pretra cheal region. Visualized thyroid unremarkable. CARDIAC: Heart size is upper normal. There is no pericardial effusion.Caliber of the thoracic aorta is within normal limits. No evidence of dissection. There is no significant shift of the interventri cular septum. PARTIALLY VISUALIZED UPPERMOST ABDOMEN: Multiple gallstones noted. No gallbladder wall edema. CBD i s not dilated. OSSEOUS: No significant osseous lesions.. IMPRESSION: 1. No evidence of acute pulmonary emboli. However, there is mild infiltrate in the posterior basal s egment of both lower lobes. No obvious pleural effusions. 2. Mildly enlarged lymph nodes noted in the left hilum and subcarinal regions. 3. No evidence of aortic dissection nor pericardial effusion. RADIATION DOSE DELIVERED: 459.04mGy.cm Total DLP DATA REPOSITORY: All CT scans at this facility are submitted to the National Radiology Data Registry (NRDR) Dose Index Registry (DIR) with the [employer] (ACR). RADIATION OPTIMIZATION: All CT scans at this facility use at least one of these dose optimization te chniques: automated exposure control; mA and/or kV adjustment per patient size (includes targeted exa ms where dose is matched to clinical indication); or iterative reconstruction.
[2022-10-30 18:53] LABS: D-Dimer 548 ng/mlFEU (<500)
[2022-10-30] MEDS: MORPHine 4 MG/ML SYR IVP (19:03)
[2022-10-30] MEDS: Ondansetron 4 MG/2 ML VIAL (19:14)
[2022-10-30] MEDS: Normal Saline Flush 10 ML SYR IVP (19:23)
[2022-10-30] MEDS: Omnipaque 350 MG/ML 100 ML BTL IJ (19:24)
[2022-10-30] MEDS: Normal Saline - Diluent 50 ML VIAL IJ (19:24)
--- NOTE | 2022-10-30 19:51 | DI.VRAD_ITS ---
PROCEDURE INFORMATION: Exam: CTA Chest With Contrast Exam date and time: 10/30/2022 19:34 Age: 57 years old Clinical indication: Left-sided; Patient HX: Chest pain TECHNIQUE: Imaging protocol: Computed tomographic angiography of the chest with contrast. Exam focused on the arteries. 3D rendering (Not supervised by radiologist): MIP and/or 3D reconstructed images were created by the technologist. Contrast material: OMNIPAQUE 350; Contrast volume: 100 ml; Contrast route: INTRAVENOUS (IV); COMPARISON: CT CHEST PE CTA 08/02/2021 20:32 FINDINGS: Pulmonary arteries: No pulmonary emboli. Aorta: No aortic aneurysm. No aortic dissection. Lungs: Motion artifact in the lungs. No airspace consolidation. Mild left greater than right subsegmental atelectasis. Pleural spaces: New trace left greater than right pleural fluid. No pneumothorax. Heart: No cardiomegaly. No pericardial effusion. Lymph nodes: No enlarged lymph nodes. Gallbladder and bile ducts: Cholelithiasis. Bones/joints: No acute fracture or subluxation. Soft tissues: No suspicious lesions. IMPRESSION: 1. New trace left greater than right pleural fluid. 2. Mild left greater than right subsegmental atelectasis. 3. Additional findings as described. Dictated and Authenticated by: Yadi Mclaughlin MD. Ordering:AYAH Denny MD
--- NOTE | 2022-10-30 21:16 | W.EDPROG ---
Date of service: 10/30/22 Time of Service: 21:17 Medical Decision Making Patient hemodynamically stable however persistently moderately tachycardic, sinus tachycardia on EKG. Evidence of pleural effusion left side consider pleurisy versus parapneumonic effusion related to pneumonia, given white count and pleural effusion will cover for community-acquired pneumonia. Patient is already on azithromycin we will add Augmentin on top of azithromycin. No rash on chest wall no paresthesia or burning superficially, lower suspicion for zoster however patient given strict return precautions for any signs of rash. Patient will follow-up closely with primary care physician. Sign Out Sign Out Data: Sign Out Comment: 57-year-old lady was seen last night and diagnosed with otitis media. Sent home with antibiotics. States that she woke up at 2 in the morning with left-sided chest pain that has been progressively getting worse throughout the day. The pain is such that she cannot take a deep breath without pain. All changing positions also cause pain. She has had no cough no fevers no infectious prodrome. Chest x-ray did not reveal any infiltrate other than some bibasilar subsegmental atelectasis. Patient arrived sinus tachycardia on EKG with normal blood pressure. A D-dimer was obtained that was elevated therefore CT PE protocol was ordered. At the time of signout result of the CT is pending. Dispo according to results. Last updated by Eduin Jones MD at 10/30/22 19:51 Discharge Plan Disposition Patient Disposition: Home Discharge Details Clinical Impression: Chest pain, Pleural effusion Primary Care Provider: Mona Rosado V ED Provider: Fred Ho Home Meds and New Rx's Prescriptions: New amoxicillin-pot clavulanate 875-125 mg tablet 1 tab PO BID 7 Days Qty: 14 0RF No Action azithromycin 250 mg tablet See Rx Instructions .ROUTE .COMPLEX 6 Days Qty: 6 0RF Rx Instructions: For 250 mg dose pack: take 500 mg today (day 1), then 250 mg for 4 days (days 2-5) naproxen sodium [Aleve] 220 mg Tablet 440 mg PO HS Patient Comments: not taking per pt 10/29/22 Discharge Instructions Instructions: Pleural Effusion (ED) Additional Instructions: Please follow-up closely with your primary care physician. Please return to the emergency department for any worsening symptoms
[2022-10-30 21:29] LABS: Troponin I < 50 ng/L (<or=60)
[2022-10-30] MEDS: Amoxicillin 875/Clav. 125 TAB PO (21:40)
[2022-10-30] MEDS: oxyCODONE 5 mg/Acetaminophen 325 mg TAB 2 TAB PO (21:40)
[2022-10-30] MEDS: Ondansetron O.D.T. 4 MG TABEF, 3 TABS/BTL PO (21:40)
== END 2022-10-30 21:52 | disposition home or self-care (01) ==
PROVIDERS: Emergency Medicine; Emergency Provider Emergency Medicine; PCP Family Medicine
DX: R07.9 Chest pain, unspecified (principal); R06.02 Shortness of breath; R00.0 Tachycardia, unspecified; K80.20 Calculus of gallbladder without cholecystitis without obstruction
CPT/HCPCS: 36415; 71275; 80053; 93005; 96374; 99285; 71046; 83735; 84484; 85025; 85379; 93010; 99284; J1885; J2270; J2405; J3490

== ENCOUNTER 2022-11-01 10:59 | Inpatient (IN) | payer BC, SELFPAY ==
[2022-11-01] VITALS (41 sets, daily range): BP systolic 113–151; BP diastolic 55–104; PULSE 79–101; RESP 7–37; TEMP 37.6–38.3; O2SAT 93–99
--- NOTE | 2022-11-01 11:00 | DI.RAD_ITS ---
Exam(s) XR PORTABLE CHEST AP EXAM: XR PORTABLE CHEST AP CLINICAL HISTORY: SOb, Hx Pleural effusion TECHNIQUE: 2D digital imaging was performed. COMPARISON: CT CT CHEST PE CTA from 10/30/2022 CR,XR XR CHEST 2V PA LATERAL from 10/30/2022 FINDINGS: Exam limited by under penetration, poor pulmonary inflation and leads overlying the chest. LUNGS: There is now small to moderate-sized left pleural effusion with adjacent atelectasis. No righ t pleural effusion or pneumothorax is seen. Of pulmonary edema. HEART: Normal size. AORTA: Normal diameter. BONES: Unremarkable for age. Soft tissues: Unremarkable. IMPRESSION: Left pleural effusion. Left basilar atelectasis and/or adjacent infiltrate. DATA REPOSITORY: RADIATION DOSE DELIVERED:
--- NOTE | 2022-11-01 11:00 | RT.EKG_ITS ---
APPROVED REPORT Exam: Resting ECG Reason for Exam: sob Patient Location: E HR:94 bpm ECG Measurements Heart Rate 94 AXIS UT 150 P 71 QRSd 79 QRS 40 QT 321 T 25 QTc 401 Conclusion Sinus rhythm... V-rate 60- [address] segment or T wave abnormalities to suggest occlusive VT
--- NOTE | 2022-11-01 11:15 | W.ED.GENAD ---
Discharge Plan Disposition Patient Disposition: Admit to [facility] Condition: Stable Discharge Details Clinical Impression: Pleural effusion on left, Shortness of breath, Pneumonia Admit Date/Time: 11/01/22 12:28 Admit Provider: Clif Padron Attending Provider: Clif Padron Primary Care Provider: Mona Rosado V ED Provider: Danni Jones Discharge Data Discharge Date/Time-TO BE ENTERED AT DEPARTURE: 11/01/22 17:00 Medical Decision Making 57-year-old female presents to the ER after being seen 48 hours ago with chief complaint of left-sided chest pain, shortness of breath. She was seen here on the and was diagnosed with bilateral pneumonia and a pleural effusion. She was recently placed on azithromycin for an ear effusion and then placed on Augmentin for the pneumonia. She has been taking Percocet at home for pain. Her last Percocet this morning was at 9 AM. She is tearful and has some left-sided pain. She is slightly hyperventilating, she does have lung sounds bilaterally. Past medical history includes COVID, bronchitis, depression, perimenopausal. Cardiac work-up ordered including serial troponins, proBNP, blood cultures x2, VBG, PT PTT, morphine Zofran and 324 mg of chewable aspirin. Initial EKG shows some questionable ST elevation in the anterior lateral leads. There is some artifact on the tracing. Labs are largely improved from 2 days ago, chest x-ray does show a moderate pleural effusion versus infiltrate. However, it is poor perfusion and poor quality. Patient is vitally stable. She is not tachycardic at this time heart rate is 92, 94% on room air respiratory 25 blood pressure within normal limits, will repeat x-ray. 1203: Hospitalist paged due to patient's repeated visits and worsening pleural effusion and chest x-ray. 1232: Spoke with Dr. Padron within who recommends speaking with Dr. Bess for thoracentesis. 1237: Spoke with Dr. Bess nutrition club ambassador who agrees to come to the department to evaluate patient for thoracentesis. Discussed plan of care with patient and family who verbalized understanding and are in agreement with the plan. 1256: RPT XR at [facility], Dr. Charles here at [facility]. 1301: Spoke again with Dr. Bess who reports that there is not enough fluid on the ultrasound to perform a thoracentesis. She is concerned with how much pain the patient is in and is requesting an additional CT chest with IV contrast only. I will place the order and go ahead with the plan to admit patient and I will give her Toradol IV. Plan is to admit patient. She remained hemodynamically stable throughout the remainder of her stay and was transferred up to the floor via stretcher by staff. This text was generated using [employer] dictation system, please disregard any oddities of phrase or misspellings. Medical Records Medical records reviewed: Yes I reviewed the patient's medical records. Medical records narrative: Seen here on the . Was called back on the and given Augmentin on top of the azithromycin for the bilateral pneumonia and pleural effusion associated with tachycardia and leukocytosis. On the patient's white blood cell count was 15. Imaging Data Radiologic Study: Imaging: X-Ray Radiologist's impression: XR PORTABLE CHEST AP EXAM:? XR PORTABLE CHEST AP CLINICAL HISTORY:? Repeat please TECHNIQUE:? 2D digital imaging was performed. COMPARISON:? CR XR PORTABLE CHEST AP from 11/01/2022 FINDINGS: Exam again limited by poor pulmonary inflation and under penetration the lung bases. LUNGS: A moderate-sized left pleural effusion is again noted.? Bibasilar atelectasis.? Infiltrates not excluded. HEART: Normal size. AORTA: Normal diameter. BONES: Unremarkable for age.? Soft tissues: Unremarkable. IMPRESSION: Moderate size left pleural effusion.? Similar to prior. Lab Data Lab results reviewed: Yes I reviewed the patient's lab results. Labs: 11/01/22 11:03 Blood Blood Culture - Pending 11/01/22 11:03 Blood Blood Culture - Pending Laboratory Tests Range/Units 11/01/22 11/01/22 11/01/22 11:10 11:10 11:10 WBC (4.4-10.8) 10^3/uL 12.20 H RBC (3.93-5.22) 10^6/uL 5.14 Hgb (11.2-15.7) g/dL 14.4 Hct (36.0-46.0) % 44.1 MCV (80-95) fL 86 MCH (27.0-33.0) pg 28.0 MCHC (32.0-36.0) % 32.7 RDW (11.7-14.6) % 13.5 Plt Count (130-400) 10^3/uL 220 MPV (8.0-11.0) fL 10.8 Immature Gran % 0.8 Neutrophils % 75.0 Lymphocytes % 16.1 Monocytes % 6.1 Eosinophils % 1.7 Basophils % 0.3 Nucleated RBC % (0.0-0.3) % 0.0 Absolute Neutrophils (1.2-6.7) 10^3/uL 9.15 H Absolute Lymphocytes (1.2-3.4) 10^3/uL 1.96 Absolute Monocytes (0.1-0.8) 10^3/uL 0.74 Absolute Eosinophils (0.0-0.7) 10^3/uL 0.21 Absolute Basophils (0.0-0.2) 10^3/uL 0.04 PT (9.3-11.0) sec INR (0.9-1.1) APTT (21.5-31.9) sec VBG pH (7.31-7.41) 7.37 VBG pCO2 (41-51) mmHg 44 VBG pO2 mmHg 30 VBG HCO3 (23-28) mmol/L 25 VBG Total CO2 (24-29) mmol/L 23 L VBG O2 Saturation % 59 VBG Base Excess (-2-3) mmol/L 0 Sodium (136-145) mmol/L 140 Potassium (3.5-5.1) mmol/L 3.8 Chloride (98-107) mmol/L 104 Carbon Dioxide (21.0-32.0) mmol/L 26.2 Anion Gap (3-11) mmol/L 9.8 BUN (7-18) mg/dL 18 Creatinine (0.55-1.02) mg/dL 1.2 H Est GFR (CKD-EPI 2020) (mL/min/1.73m2) 52.14 Glucose (74-106) mg/dL 117 H Calcium (8.5-10.1) mg/dL 9.5 Magnesium (1.8-2.4) mg/dL 2.0 Total Bilirubin (0.2-1.0) mg/dL 0.5 AST (15-37) U/L 17 ALT (14-59) U/L 27 Alkaline Phosphatase (46-116) U/L 106 Troponin I (<or=60) ng/L < 50 Total Protein (6.4-8.2) g/dL 8.3 H Albumin (3.4-5.0) g/dL 3.0 L Range/Units 11/01/22 11:10 WBC (4.4-10.8) 10^3/uL RBC (3.93-5.22) 10^6/uL Hgb (11.2-15.7) g/dL Hct (36.0-46.0) % MCV (80-95) fL MCH (27.0-33.0) pg MCHC (32.0-36.0) % RDW (11.7-14.6) % Plt Count (130-400) 10^3/uL MPV (8.0-11.0) fL Immature Gran % Neutrophils % Lymphocytes % Monocytes % Eosinophils % Basophils % Nucleated RBC % (0.0-0.3) % Absolute Neutrophils (1.2-6.7) 10^3/uL Absolute Lymphocytes (1.2-3.4) 10^3/uL Absolute Monocytes (0.1-0.8) 10^3/uL Absolute Eosinophils (0.0-0.7) 10^3/uL Absolute Basophils (0.0-0.2) 10^3/uL PT (9.3-11.0) sec 11.4 H INR (0.9-1.1) 1.1 APTT (21.5-31.9) sec 32.3 H VBG pH (7.31-7.41) VBG pCO2 (41-51) mmHg VBG pO2 mmHg VBG HCO3 (23-28) mmol/L VBG Total CO2 (24-29) mmol/L VBG O2 Saturation % VBG Base Excess (-2-3) mmol/L Sodium (136-145) mmol/L Potassium (3.5-5.1) mmol/L Chloride (98-107) mmol/L Carbon Dioxide (21.0-32.0) mmol/L Anion Gap (3-11) mmol/L BUN (7-18) mg/dL Creatinine (0.55-1.02) mg/dL Est GFR (CKD-EPI 2020) (mL/min/1.73m2) Glucose (74-106) mg/dL Calcium (8.5-10.1) mg/dL Magnesium (1.8-2.4) mg/dL Total Bilirubin (0.2-1.0) mg/dL AST (15-37) U/L ALT (14-59) U/L Alkaline Phosphatase (46-116) U/L Troponin I (<or=60) ng/L Total Protein (6.4-8.2) g/dL Albumin (3.4-5.0) g/dL HPI General Mode of arrival: wheelchair. Date/Time Provider Initiated Documentation: 11/01/22 10:59. Limitations to Documentation: no limitations. Information obtained by: patient, RN notes reviewed and old records reviewed. HPI Narrative: 57-year-old female presents to the ER after being seen 48 hours ago with chief complaint of left-sided chest pain, shortness of breath. She was seen here on the and was diagnosed with bilateral pneumonia and a pleural effusion. She was recently placed on azithromycin for an ear effusion and then placed on Augmentin for the pneumonia. She has been taking Percocet at home for pain. Her last Percocet this morning was at 9 AM. She is tearful and has some left-sided pain. She is slightly hyperventilating, she does have lung sounds bilaterally. Past medical history includes COVID, bronchitis, depression, perimenopausal. Related Data Home Medications Medication Instructions Recorded Confirmed naproxen sodium 220 mg tablet 440 mg PO HS 07/06/21 11/01/22 (Aleve) azithromycin 250 mg tablet See Rx Instructions PO .COMPLEX 6 10/29/22 11/01/22 days #6 tabs amoxicillin 875 mg-potassium 1 tab PO BID 7 days #14 tabs 10/30/22 11/01/22 clavulanate 125 mg tablet Previous Rx's Medication Instructions Recorded azithromycin 250 mg tablet See Rx Instructions PO .COMPLEX 6 10/29/22 days #6 tabs amoxicillin 875 mg-potassium 1 tab PO BID 7 days #14 tabs 10/30/22 clavulanate 125 mg tablet Allergies Allergy/AdvReac Type Severity Reaction Status Date / Time sulfamethoxazole Allergy Severe Anaphylaxsi Verified 11/01/22 12:35 [From Bactrim] s trimethoprim [From Bactrim] Allergy Severe Anaphylaxsi Verified 11/01/22 12:35 s General Stated Complaint: Chest Pain NICK: 3 Review of Systems All systems reviewed & are unremarkable except as noted in HPI and below Cardiovascular Cardiovascular: Reports as per HPI, Reports chest pain, Reports chest pain at rest, Reports chest pain with activity, Denies leg edema, Reports dyspnea and Reports dyspnea on exertion Respiratory Respiratory: Reports pain with cough, Reports dyspnea, Reports dyspnea on exertion, Denies wheezing and Reports other (Pain with deep breathing) Allergic/Immunologic Allergic/Immunologic: Denies wheezing PFSH All Active Problems (Updated 11/02/22 @ 15:51 by Thelma Aragon MD) Discharge planning issues (Acute) DVT prophylaxis (Acute) Pharyngitis (Acute) Pleurisy (Acute) Pain (Acute) COVID-19 (Acute) Acute effusion of left ear (Acute) Sinusitis (Acute) Chest pain (Acute) Pleural effusion (Acute) Pleural effusion on left (Acute) Shortness of breath (Acute) Pneumonia (Acute) Encounter for re-check of laceration wound (Acute) Laceration (Acute) Bronchitis (Acute) Patellar tendonitis of right knee (Chronic) Significant improvement of right patellar tendinitis. Patient is advised to stay away from Cipro or other similar antibiotics because they can predispose to inflammation in the tendons. She also understands that injection of corticosteroid into the patellar tendon is fraught with complications. Follow-up with me as needed Medical History (Updated 11/02/22 @ 15:51 by Thelma Aragon MD) Depression Lumbar strain multiple events:2009,2013,2015,04/2017 Perimenopause Right shoulder strain 2005 Surgical History Fasciotomy, Foot 2008 for plantar fascitis Family History Father Colon cancer GI bleed. 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 Appears stated age. Normal body habitus. Appears sin moderate distress. Head: Normocephalic, no trauma. Eyes: Pupils PERRL, Red reflex noted, EOM's intact. Eyelids symmetrical without lesions, discharge, or swelling. ENT: Bilateral TM's WNL, External ear normal to inspection, no mastoid TTP, swelling, or erythema, Nasal turbinates WNL, no nasal discharge. Normal dentition, Posterior pharynx WNL, no exudate. Chest: RRR, Normal S1, S2, distal pulses intact. Resp: Lungs clear to auscultation bilaterally, no wheezes, rales, or rhonchi. Abdomen: Soft, non-distended, Normoactive bowel sounds all 4 quads. Musculoskeletal: Normal gait, 5/5 strength to all four extremities. Skin: No suspicious rashes or lesions. Capillary refill less than 2 sec. Neurologic: Cranial nerves II-XII intact. Alert and oriented x 3. Motor: No deficits noted. Sensory: Intact bilaterally all 4 extremities. Reflexes: DTR's intact bilaterally.. Hematologic/Lymphatic: No ecchymosis, no lymphadenopathy. Course Vital Signs Vital signs: Vital Signs Pulse 80 11/01/22 11:03 Respiratory Rate 22 11/01/22 11:03 Pulse Oximetry 98 11/01/22 11:03 Temperature Source Oral 11/01/22 11:03 Pulse 80 11/01/22 11:03 Respiratory Rate 22 11/01/22 11:03 Pulse Oximetry 98 11/01/22 11:03 Oxygen Delivery Method Room Air 11/01/22 11:03 Oxygen Flow Rate 0 11/01/22 11:03 Pain Level 10 11/01/22 11:03 Lab/Test Results Lab/Test Results: 11/01/22 11:03 Blood Blood Culture - Pending 11/01/22 11:03 Blood Blood Culture - Pending
[2022-11-01 11:24] LABS: BE (Venous) 0 mmol/L (-2-3); HCO3 (Venous) 25 mmol/L (23-28); O2 Sat (Venous) 59 %; TCO2 (Venous) 23 mmol/L (24-29); pCO2 (Venous) 44 mmHg (41-51); pH (Venous) 7.37 (7.31-7.41); pO2 (Venous) 30 mmHg
[2022-11-01 11:26] LABS: Absolute Basophil Count 0.04 10^3/uL (0.0-0.2); Absolute Eosinophil Count 0.21 10^3/uL (0.0-0.7); Absolute Lymphocyte Count 1.96 10^3/uL (1.2-3.4); Absolute Monocyte Count 0.74 10^3/uL (0.1-0.8); Absolute Neutrophil Count 9.15 10^3/uL (1.2-6.7); Basophils % 0.3; Eosinophils % 1.7; HCT 44.1 % (36.0-46.0); HGB 14.4 g/dL (11.2-15.7); Immature Grans % 0.8; Lymphocytes % 16.1; MCHC 32.7 % (32.0-36.0); MCV 86 fL (80-95); MPV 10.8 fL (8.0-11.0); Monocytes % 6.1; Platelet Count 220 10^3/uL (130-400); RBC 5.14 10^6/uL (3.93-5.22); RDW 13.5 % (11.7-14.6); RDW-SD 42.6 fL
[2022-11-01] MEDS: Normal Saline 1,000 ML 150 ML IV (11:30)
[2022-11-01] MEDS: MORPHine 4 MG/ML SYR IVP (11:30)
[2022-11-01] MEDS: Ondansetron 4 MG/2 ML VIAL IVP (11:31)
[2022-11-01] MEDS: Aspirin 81 MG CHEW 324 MG CH (11:32)
[2022-11-01 11:40] LABS: INR 1.1 (0.9-1.1); PTT Activated 32.3 sec (21.5-31.9); Prothrombin Time 11.4 sec (9.3-11.0)
[2022-11-01 11:51] LABS: ALT 27 U/L (14-59); AST 17 U/L (15-37); Alkaline Phosphatase 106 U/L (46-116); Anion Gap 9.8 mmol/L (3-11); BUN 18 mg/dL (7-18); Bilirubin, Total 0.5 mg/dL (0.2-1.0); CO2 26.2 mmol/L (21.0-32.0); CREATININE 1.2 mg/dL (0.55-1.02); Calcium 9.5 mg/dL (8.5-10.1); Chloride 104 mmol/L (98-107); Estimated GFR 52.14 (mL/min/1.73m2); Glucose 117 mg/dL (74-106); Potassium 3.8 mmol/L (3.5-5.1); Sodium 140 mmol/L (136-145); Total Protein 8.3 g/dL (6.4-8.2); Troponin I < 50 ng/L (<or=60)
--- NOTE | 2022-11-01 12:00 | DI.RAD_ITS ---
Exam(s) XR PORTABLE CHEST AP EXAM: XR PORTABLE CHEST AP CLINICAL HISTORY: Repeat please TECHNIQUE: 2D digital imaging was performed. COMPARISON: CR XR PORTABLE CHEST AP from 11/01/2022 FINDINGS: Exam again limited by poor pulmonary inflation and under penetration the lung bases. LUNGS: A moderate-sized left pleural effusion is again noted. Bibasilar atelectasis. Infiltrates no t excluded. HEART: Normal size. AORTA: Normal diameter. BONES: Unremarkable for age. Soft tissues: Unremarkable. IMPRESSION: Moderate size left pleural effusion. Similar to prior. DATA REPOSITORY: RADIATION DOSE DELIVERED:
--- NOTE | 2022-11-01 12:36 | PUCON_ITS ---
General Date Of Service Date of service: 11/01/22 Time of Service: 12:36 Reason for Consult: Pneumonia, concern for pleural effusion Assessment and Plan Assessment and plan (1) Pneumonia: Status: Acute (2) Pain: Status: Acute (3) Pleural effusion on left: Status: Acute Assessment and plan: This is a 57 yo with no prior pulmonary issues and a never smoker who is being admitted for pneumonia with failure of outpatient therapy. She received a Z-pack which was switched to Augmentin 2 days ago for non resolution. She is in excruciating pain from the left posterior chest that is even tender to touch. We need to get her pain in better control so that she can take deep breaths and work on secretion clearance. On thoracic POCUS today I did not appreciate a safe window for thoracentesis and only saw a small effusion that is not amenable to thoracentesis. On POCUS I also found a dense socked in pneumonia on the left likely with some atelectasis. I agree with broadening her antibiotic to Zosyn and doxycycline. She has been ordered for blood cultures, sputum culture, urine antigens for strep and legionella. She has gotten pneumonia in the past, which is somewhat atypical, so I will order immunoglobulins to rule out immune deficiency. Pneumonia - Zosyn and doxycycline - agree with blood and sputum cultures (although doubt she will produce sputum due to pain) - agree with urine antigens - VibraPEP and IS - recommend albuterol nebulizer QID while awak - if no improvement in 24-48 hours, will consider bronchoscopy Pain - recommend more aggressive pain control - recommend: standing tylenol, gabapentin, prn morphine, prn tordal - if the above regimen is not sufficient would recommend ketamine pain infusion Left pleural effusion - small pleural effusion not amenable to thoracentesis - recommend repeat POCUS tomorrow/ to reassess size History of Present Illness Narrative: This is a 57 yo presenting for the third time since 10/29/22 for pneumonia and chest pain. She initially received a Z-pack then was put on Augmentin when she was not improving. She has been on Augmentin for 2 days. She is a never smoker and has no history of lung issues. She does report that she has had pneumonia in the past. She had a CXR that was read as a left moderate effusion. She did have a CTPE completed on 10/30/22 that found no PE with bibasilar infiltrates with left hilar LAD. On my assessment of this chest CT there are certainly irregular lines, atelectasis and a trace left pleural effusion. She is in excruciating pain on the left side. The left posterior chest is tender even to tough. She is shallow breathing due to pain. She is having some nausea, but no vomiting, no abdominal pain, no diarrhea. Review of Systems All systems reviewed & are unremarkable except as noted in HPI and below PFSH All Active Problems (Updated 11/01/22 @ 14:09 by Daphne Charles MD) Pain (Acute) COVID-19 (Acute) Acute effusion of left ear (Acute) Sinusitis (Acute) Chest pain (Acute) Pleural effusion (Acute) Pleural effusion on left (Acute) Shortness of breath (Acute) Pneumonia (Acute) Encounter for re-check of laceration wound (Acute) Laceration (Acute) Bronchitis (Acute) Patellar tendonitis of right knee (Chronic) Significant improvement of right patellar tendinitis. Patient is advised to stay away from Cipro or other similar antibiotics because they can predispose to inflammation in the tendons. She also understands that injection of corticosteroid into the patellar tendon is fraught with complications. Follow-up with me as needed Medical History (Updated 11/01/22 @ 14:09 by Daphne Charles MD) Depression Lumbar strain multiple events:2009,2013,2015,04/2017 Perimenopause Right shoulder strain 2005 Surgical History Fasciotomy, Foot 2008 for plantar fascitis Family History Father Colon cancer GI bleed. 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 [employer] Do you feel safe at home: Yes Do you feel safe in your relationship?: Yes Visit Medication and Allergies Active Medications Generic Name Dose Route Start Last Admin Trade Name Freq PRN Reason Stop Dose Admin Sodium Chloride 1,000 mls @ 150 mls/hr 11/01/22 11:12 11/01/22 11:30 Saline 1000ml Bag IV 11/01/22 17:51 150 mls/hr INFUSION STA Administration Piperacillin Sod/Tazobactam 100 mls @ 200 mls/hr 11/01/22 12:25 Sod 4.5 gm/ Sodium Chloride IVPB 11/01/22 12:54 NOW ONE IV Miscellaneous Supplies 1 each 11/01/22 11:15 Iv Access-Emergency Dept IV DIRECTED RAFAEL Sodium Chloride 0 ml 11/01/22 11:02 Normal Saline Flush 10 Ml Syr IVP PRN PRN Allergies sulfamethoxazole [From Bactrim] Allergy (Severe, Verified 11/01/22 12:35) Anaphylaxsis trimethoprim [From Bactrim] Allergy (Severe, Verified 11/01/22 12:35) Anaphylaxsis Exam Narrative Exam Narrative: Gen: appears in distress, rapid and shallow breathing HENT: PERRL, no cervial or clavicular LAD Chest: Moderate respiratory distress, normal appearance of chest, clear to auscultation bilaterally but diminished breath sounds due to effort. Left posterior chest tender to palpation. Heart: regular rate and rhythym, no murmurs, rubs or gallops Abdomen: Non-distended, soft, non tender Extremities: No clubbing, edema, cyanosis, rashes Neuro: AAOx3 , non focal Psych: cooperative, appropriate mental affect Results Last Vital Signs Pulse 93 H 11/01/22 12:01 Resp 21 11/01/22 12:30 BP 123/66 11/01/22 12:01 Pulse Ox 95 11/01/22 12:30 Labs 11/01/22 11:10 11/01/22 11:10 Labs: Laboratory Results - last 24 hr 11/01/22 11/01/22 11/01/22 11:10 11:10 11:10 WBC 12.20 H RBC 5.14 Hgb 14.4 Hct 44.1 MCV 86 MCH 28.0 MCHC 32.7 RDW 13.5 Plt Count 220 MPV 10.8 Immature Gran % 0.8 Neutrophils % 75.0 Lymphocytes % 16.1 Monocytes % 6.1 Eosinophils % 1.7 Basophils % 0.3 Nucleated RBC % 0.0 Absolute Neutrophils 9.15 H Absolute Lymphocytes 1.96 Absolute Monocytes 0.74 Absolute Eosinophils 0.21 Absolute Basophils 0.04 PT INR APTT VBG pH 7.37 VBG pCO2 44 VBG pO2 30 VBG HCO3 25 VBG Total CO2 23 L VBG O2 Saturation 59 VBG Base Excess 0 Sodium 140 Potassium 3.8 Chloride 104 Carbon Dioxide 26.2 Anion Gap 9.8 BUN 18 Creatinine 1.2 H Est GFR (CKD-EPI 2020) 52.14 Glucose 117 H Calcium 9.5 Magnesium 2.0 Total Bilirubin 0.5 AST 17 ALT 27 Alkaline Phosphatase 106 Troponin I < 50 Total Protein 8.3 H Albumin 3.0 L 11/01/22 11:10 WBC RBC Hgb Hct MCV MCH MCHC RDW Plt Count MPV Immature Gran % Neutrophils % Lymphocytes % Monocytes % Eosinophils % Basophils % Nucleated RBC % Absolute Neutrophils Absolute Lymphocytes Absolute Monocytes Absolute Eosinophils Absolute Basophils PT 11.4 H INR 1.1 APTT 32.3 H VBG pH VBG pCO2 VBG pO2 VBG HCO3 VBG Total CO2 VBG O2 Saturation VBG Base Excess Sodium Potassium Chloride Carbon Dioxide Anion Gap BUN Creatinine Est GFR (CKD-EPI 2020) Glucose Calcium Magnesium Total Bilirubin AST ALT Alkaline Phosphatase Troponin I Total Protein Albumin Imaging Chest x-ray: report reviewed and image reviewed CT scan - chest: report reviewed and image reviewed Pocus Exam Limited Thoracic Lung Exam DATE OF EXAM: 11/01/22 TIME OF EXAM: 12:45 PROVIDER THAT PERFORMED THE STUDY: Daphne Charles IS THIS A REPEAT EXAM DURING THIS ENCOUNTER: No REASON FOR EXAM: Pneumonia VISUALIZED STRUCTURES: right posterior and left posterior PERTINENT FINDINGS/IMPRESSION: Pneumonia (dense, left sided), Left pleural effusion (small) and Other impression: bilateral atelectasis Exam complete
[2022-11-01 12:52] LABS: NT-proBNP 114 pg/mL (<300)
--- NOTE | 2022-11-01 13:00 | DI.CT_ITS ---
Exam(s) CT CHEST W EXAM: CT CHEST W CLINICAL HISTORY: Left sided chest pain, Pneumonia TECHNIQUE: Imaging Protocol: Axial computed tomography images with coronal and sagittal reformatted images were created and reviewed CONTRAST MATERIAL: Intravenous: Omnipaque 350 Contrast volume:structured data ml. COMPARISON: CT CT CHEST PE CTA from 10/30/2022 US POCUS EXAM from 11/01/2022 CR XR PORTABLE CHEST AP from 11/01/2022 FINDINGS: Pulmonary parenchyma: Significant atelectasis at the left lung base adjacent to the effusion. Mild a telectasis right lung base. Lungs are not well inflated. No dominant measurable mass. Tracheobronchial tree: No bronchiectasis or mucous plugging. Mediastinum and Connie: No dominant adenopathy or fluid collection. Pleura: Increased size of left pleural effusion, still small. Trace right pleural effusion. No pneu mothorax. Heart: The heart is not dilated. No coronary artery calcifications are seen. Aorta: Thoracic aorta non-dilated. No visible atherosclerotic changes. Pulmonary arteries normal caliber. No central pulmonary emboli. Upper abdomen: Gallstones. The liver cyst. Bones: Degenerative changes in the spine. Soft tissues: Unremarkable. IMPRESSION: Increased size of left pleural effusion and increased left basilar atelectasis. Trace right pleural effusion and mild right basilar atelectasis. Pneumonia not entirely excluded. The lungs are not wel l expanded. RADIATION DOSE DELIVERED: 506.83mGy.cm Total DLP DATA REPOSITORY: All CT scans at this facility are submitted to the National Radiology Data Registry (NRDR) Dose Index Registry (DIR) with the [employer] ([employer]). RADIATION OPTIMIZATION: All CT scans at this facility use at least one of these dose optimization te chniques: automated exposure control; mA and/or kV adjustment per patient size (includes targeted exa ms where dose is matched to clinical indication); or iterative reconstruction.
[2022-11-01] MEDS: PIPERACILLIN/TAZO 4.5 GM in Normal Saline 100 ML IVPB (13:10)
[2022-11-01] MEDS: Ketorolac 15 MG/ML VIAL IVP ×2 (13:11→17:32)
[2022-11-01] MEDS: Omnipaque 350 MG/ML 100 ML BTL IJ (14:00)
[2022-11-01] MEDS: Normal Saline - Diluent 50 ML VIAL IJ (14:00)
[2022-11-01] MEDS: MORPHine 10 MG/ML VIAL 2 MG IVP (14:28)
[2022-11-01 14:35] LABS: Troponin I < 50 ng/L (<or=60)
[2022-11-01] MEDS: Albuterol 2.5 MG/3 ML INH SOLN VIAL UPD ×2 (16:52→20:00)
--- NOTE | 2022-11-01 17:06 | HPE_ITS ---
Date of service: 11/01/22 Time of Service: 17:07 Assessment and Plan Assessment and plan (1) Pneumonia: Status: Acute Assessment and plan: Zosyn 4.5 gm IV slow infusion q8hr, doxycycline 100 mg iv q12h, prednisone, and pain control (ketorolac and morphine and Tylenol), encourage C&DB, use of IS and Acapella. (2) Pleurisy: Status: Acute Assessment and plan: as above History of Present Illness History of Present Illness Chief Complaint: pleuritic chest pain Narrative: 57 yr old female, nonsmoker, who does not have chronic lung or cardiac disease who presented to the ED on Sunday 10/29 w/ left sided ear pain but no respiratory symptoms or fevers or chills. She was dx w/ otitis media and started on azithromycin. However she presented back to the ED on 10/30 d/t dyspnea, nonproductive cough but was not febrile. She underwent CTA chest which did not show PE but demonstrated left basilar pneumonia and she was put on Augmentin. However she returned to the ED today d/t severe pleuritic left sided chest pain, nonproductive cough and was found to have worsening pneumonia, small effusion. Dr. Charles was consulted from the emergency room and she did bedside POCUS and did not find enough of an effusion to perform thoracentesis to rule out empyema but found patient to have severe LLL pneumonia. Blood cultures, repeat CTA was done and patient was begun on Zosyn and doxycycline. She is now admitted for antibiotics and pain control. She had been given ketorolac and tyelenol and morphine in the ED. Repeat CTA again did not show P.E. Review of Systems All systems reviewed & are unremarkable except as noted in HPI and below PFSH All Active Problems (Updated 11/01/22 @ 17:32 by Clif Padron MD) Pleurisy (Acute) Pain (Acute) COVID-19 (Acute) Acute effusion of left ear (Acute) Sinusitis (Acute) Chest pain (Acute) Pleural effusion (Acute) Pleural effusion on left (Acute) Shortness of breath (Acute) Pneumonia (Acute) Encounter for re-check of laceration wound (Acute) Laceration (Acute) Bronchitis (Acute) Patellar tendonitis of right knee (Chronic) Significant improvement of right patellar tendinitis. Patient is advised to stay away from Cipro or other similar antibiotics because they can predispose to inflammation in the tendons. She also understands that injection of corticosteroid into the patellar tendon is fraught with complications. Follow-up with me as needed Medical History (Updated 11/01/22 @ 17:32 by Clif Padron MD) Depression Lumbar strain multiple events:2009,2013,2015,04/2017 Perimenopause Right shoulder strain 2005 Surgical History Fasciotomy, Foot 2008 for plantar fascitis Family History Father Colon cancer GI bleed. 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 [employer] Do you feel safe at home: Yes Do you feel safe in your relationship?: Yes Meds Allergies and Home Medications Allergies Allergy/AdvReac Type Severity Reaction Status Date / Time sulfamethoxazole Allergy Severe Anaphylaxsi Verified 11/01/22 12:35 [From Bactrim] s trimethoprim [From Bactrim] Allergy Severe Anaphylaxsi Verified 11/01/22 12:35 s Home Medications Medication Instructions Recorded Confirmed Type naproxen sodium 220 mg tablet 440 mg PO HS 07/06/21 11/01/22 History (Aledanielle) azithromycin 250 mg tablet See Rx Instructions PO .COMPLEX 6 10/29/22 11/01/22 Rx days #6 tabs amoxicillin 875 mg-potassium 1 tab PO BID 7 days #14 tabs 10/30/22 11/01/22 Rx clavulanate 125 mg tablet Exam Narrative Exam Narrative: 57 yr old female who is sitting up in her chair, she is able to talk in complete sentences but is dyspneic w/ prolonged conversation, not currently on oxygen HEENT: ears inspected and no bullae in either TM, no erythema or dullness, no drainage, rest of ENT exam is unremarkable Neck: supple, no JVD, normal carotid pulses, no adenopathy Lungs: markedly diminished breath sounds over left lung base, some end expiratory wheezed heard diffusely; no rhonchi Heart: RRR Abdomen: exam difficult to evaluate as she was in chair but soft and nontender Extremities: no edema or cyanosis Neuro: grossly intact, normal motor and sensory Results Imaging Chest x-ray: report reviewed and image reviewed CT scan - chest: rep ort reviewed and image reviewed Labs 11/01/22 11:10 11/01/22 11:10 Labs: Laboratory Results - last 24 hr 11/01/22 11/01/22 11/01/22 11:10 11:10 11:10 WBC 12.20 H RBC 5.14 Hgb 14.4 Hct 44.1 MCV 86 MCH 28.0 MCHC 32.7 RDW 13.5 Plt Count 220 MPV 10.8 Immature Gran % 0.8 Neutrophils % 75.0 Lymphocytes % 16.1 Monocytes % 6.1 Eosinophils % 1.7 Basophils % 0.3 Nucleated RBC % 0.0 Absolute Neutrophils 9.15 H Absolute Lymphocytes 1.96 Absolute Monocytes 0.74 Absolute Eosinophils 0.21 Absolute Basophils 0.04 PT INR APTT VBG pH 7.37 VBG pCO2 44 VBG pO2 30 VBG HCO3 25 VBG Total CO2 23 L VBG O2 Saturation 59 VBG Base Excess 0 Sodium 140 Potassium 3.8 Chloride 104 Carbon Dioxide 26.2 Anion Gap 9.8 BUN 18 Creatinine 1.2 H Est GFR (CKD-EPI 2020) 52.14 Glucose 117 H Calcium 9.5 Magnesium 2.0 Total Bilirubin 0.5 AST 17 ALT 27 Alkaline Phosphatase 106 Troponin I < 50 NT-Pro-B Natriuret Pep 114 Total Protein 8.3 H Albumin 3.0 L 11/01/22 11/01/22 11:10 14:10 WBC RBC Hgb Hct MCV MCH MCHC RDW Plt Count MPV Immature Gran % Neutrophils % Lymphocytes % Monocytes % Eosinophils % Basophils % Nucleated RBC % Absolute Neutrophils Absolute Lymphocytes Absolute Monocytes Absolute Eosinophils Absolute Basophils PT 11.4 H INR 1.1 APTT 32.3 H VBG pH VBG pCO2 VBG pO2 VBG HCO3 VBG Total CO2 VBG O2 Saturation VBG Base Excess Sodium Potassium Chloride Carbon Dioxide Anion Gap BUN Creatinine Est GFR (CKD-EPI 2020) Glucose Calcium Magnesium Total Bilirubin AST ALT Alkaline Phosphatase Troponin I < 50 NT-Pro-B Natriuret Pep Total Protein Albumin Last Vital Signs Temp 37.6 C 11/01/22 15:23 Pulse 89 11/01/22 15:23 Resp 31 H 11/01/22 15:23 BP 124/68 11/01/22 15:23 Pulse Ox 96 11/01/22 16:58 Time Spent Time spent with Patient: 40-54 minutes Time was spent: preparing to see the patient(eg.review tests), obtaining and/or reviewing separately otained hiistory, ordering medications,tests, procedures, referring, communicating with other health home care and home health aides teacher, indepentently interpreting results, counseling the patient and care coordination
[2022-11-01] MEDS: predniSONE 20 MG TAB 40 MG PO (17:32)
[2022-11-01] MEDS: Enoxaparin 40 MG/0.4 ML SYR SC (17:33)
[2022-11-01] MEDS: DOXYCYCLINE 100 MG in Normal Saline 100 ML IVPB (18:23)
[2022-11-01] MEDS: PIPERACILLIN/TAZO 3.375 GM in Normal Saline 50 ML IV (20:00)
[2022-11-01] MEDS: Acetaminophen 500 MG TAB 1000 MG PO (20:01)
[2022-11-01] MEDS: Famotidine 20 MG TAB PO (20:01)
[2022-11-02] VITALS (10 sets, daily range): BP systolic 95–128; BP diastolic 59–84; PULSE 78–116; RESP 1–20; TEMP 36.1–37; O2SAT 94–98
[2022-11-02] MEDS: Ketorolac 15 MG/ML VIAL IVP ×5 (00:07→23:32)
[2022-11-02] MEDS: PIPERACILLIN/TAZO 3.375 GM in Normal Saline 50 ML IV ×3 (03:30→19:58)
[2022-11-02] MEDS: DOXYCYCLINE 100 MG in Normal Saline 100 ML IVPB ×2 (05:43→18:06)
[2022-11-02 07:11] LABS: Abs Immature Grans 0.07 10^3/uL (0.0-0.06); Absolute Basophil Count 0.02 10^3/uL (0.0-0.2); Absolute Monocyte Count 0.39 10^3/uL (0.1-0.8); Absolute Neutrophil Count 8.98 10^3/uL (1.2-6.7); Basophils % 0.2; HCT 37.6 % (36.0-46.0); HGB 12.5 g/dL (11.2-15.7); Immature Grans % 0.7; Lymphocytes % 8.7; MCH 28.8 pg (27.0-33.0); MCHC 33.2 % (32.0-36.0); MCV 87 fL (80-95); MPV 11.4 fL (8.0-11.0); Monocytes % 3.8; Neutrophils % 86.6; Platelet Count 212 10^3/uL (130-400); RBC 4.34 10^6/uL (3.93-5.22); RDW 13.3 % (11.7-14.6); RDW-SD 42.1 fL; WBC 10.36 10^3/uL (4.4-10.8)
[2022-11-02] MEDS: Albuterol 2.5 MG/3 ML INH SOLN VIAL UPD ×2 (07:27→12:56)
[2022-11-02 07:28] LABS: Anion Gap 9.3 mmol/L (3-11); BUN 17 mg/dL (7-18); CO2 24.7 mmol/L (21.0-32.0); CREATININE 1.1 mg/dL (0.55-1.02); Chloride 107 mmol/L (98-107); Estimated GFR 57.88 (mL/min/1.73m2); Glucose 189 mg/dL (74-106); Potassium 4.3 mmol/L (3.5-5.1); Sodium 141 mmol/L (136-145)
[2022-11-02] MEDS: Acetaminophen 500 MG TAB 1000 MG PO ×4 (07:48→19:54)
[2022-11-02] MEDS: Famotidine 20 MG TAB PO ×2 (07:48→19:54)
[2022-11-02] MEDS: predniSONE 20 MG TAB 40 MG PO (07:49)
[2022-11-02] MEDS: Normal Saline Flush 10 ML SYR IVP ×3 (07:49→18:10)
[2022-11-02 09:40] LABS: IgE 32 IU/mL (<158)
--- NOTE | 2022-11-02 10:29 | PDOC.CMIN ---
Date of service: 11/02/22 Time of Service: 10:29 Care Management Initial Assmt Initial Assessment REASON FOR HOSPITALIZATION:: Pneumonia, chest pain PREVIOUS FUNCTIONAL STATUS/SOCIAL/FAMILY SUPPORTS:: Mary lives in [place] with her , Milad. 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 She is independent at baseline. CURRENT FUNCTIONAL STATUS:: Mary was sitting up in her chair when CM met with her. She stated that she is feeling much better today. She is on room air, and is being treated with IV antibiotics. She stated that she does not feel at her baseline today, but is improving. CM will continue to follow. ADVANCE DIRECTIVES:: Not on file; CM will offer forms. Has patient been provided with info about the portal/API?: Yes Did the patient sign up for the portal?: No CODE STATUS:: Full Code INSURANCE COVERAGE / FINANCIAL ISSUES:: BC/BS CURRENT HOME/COMMUNITY SERVICES/EQUIPMENT:: No current equipment or services. PRIMARY CARE PHYSICIAN:: Mona Rosado POTENTIAL DISCHARGE NEEDS:: Evaluations for further needs, follow up appointments. PATIENT/FAMILY EDUCATION NEEDS:: Review discharge instructions and limitations, discussion of self care needs including ask me three. ANTICIPATED BARRIERS TO DISCHARGE:: None identified. TRANSPORTATION:: Via private vehicle by her . PLAN:: Anticipate Mary will return home once medically cleared. Her will drive her home via private vehicle. She will follow up with her PCP and discharge plan of care. CM will continue to follow. [facility] All Active Problems (Updated 11/02/22 @ 15:51 by Thelma Aragon MD) Discharge planning issues (Acute) DVT prophylaxis (Acute) Pharyngitis (Acute) Pleurisy (Acute) Pain (Acute) COVID-19 (Acute) Acute effusion of left ear (Acute) Sinusitis (Acute) Chest pain (Acute) Pleural effusion (Acute) Pleural effusion on left (Acute) Shortness of breath (Acute) Pneumonia (Acute) Encounter for re-check of laceration wound (Acute) Laceration (Acute) Bronchitis (Acute) Patellar tendonitis of right knee (Chronic) Significant improvement of right patellar tendinitis. Patient is advised to stay away from Cipro or other similar antibiotics because they can predispose to inflammation in the tendons. She also understands that injection of corticosteroid into the patellar tendon is fraught with complications. Follow-up with me as needed Medical History (Updated 11/02/22 @ 15:51 by Thelma Aragon MD) Depression Lumbar strain multiple events:2009,2013,2015,04/2017 Perimenopause Right shoulder strain 2005 Surgical History Fasciotomy, Foot 2008 for plantar fascitis Family History Father Colon cancer GI bleed. 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
[2022-11-02 11:29] LABS: IgA 139 mg/dL (85-499); IgG 934 mg/dL (610-1616); IgM 78 mg/dL (35-242)
[2022-11-02 12:49] LABS: Lab Add On Test DONE
--- NOTE | 2022-11-02 15:21 | W.PM.PROGNOT ---
Date of Service Date of service: 11/02/22 Time of Service: 15:35 Assessment and Plan Assessment and plan (1) Pneumonia: Status: Acute Assessment and plan: CAP with failure of outpatient therapy. Blood cultures are with NGTD. Continue zosyn + doxycycline. Await pneumonia studies and sputum cx. Continue prednisone. I have changed albuterol to levalbuterol. Obtain a throat culture. Trend procalcitonin. Bronchoscopy is being considered. (2) Pleurisy: Status: Acute Assessment and plan: Continue tylenol, toradol. I have added prn ultram and lidocaine patches. (3) Pharyngitis: Status: Acute Assessment and plan: as above Also, recheck COVID-19 PCR. (4) Pleural effusion on left: Status: Acute Assessment and plan: reasses size tomorrow (5) DVT prophylaxis: Status: Acute Assessment and plan: Enoxaparin (6) Discharge planning issues: Status: Acute Assessment and plan: Full code Admit to inpatient status. Continues to require hospitalization. Subjective Subjective Interval history since last seen: Ms Figueroa is now feeling worse than she did this morning. She has a sore throat after her neb treatment. She states there is a strange sensation on the left side of her chest. It feels tingly. The neb did make her heart race. Denies dizziness, n/v. Tmax 38.3 at 19:17 yesterday. Exam Narrative Exam Narrative: General: Pleasant middle-aged female who appears uncomfortable, A&Ox3, on RA, very mild dyspnea/tachypnea, no cyanosis HEENT: EOMI, MMM Heart: RRR, mildly tachycardic, no m/r/g Lungs: coarse expiratory sounds B Abdomen: soft, nontender, nondistended Extremities: no edema BLEs Objective Last Vital Signs Temp 36.5 C 11/02/22 11:04 Pulse 96 H 11/02/22 12:58 Resp 18 11/02/22 12:58 BP 128/84 11/02/22 11:04 Pulse Ox 98 11/02/22 12:58 Laboratory Results - last 24 hr 11/01/22 11/02/22 11/02/22 13:40 06:30 06:30 WBC 10.36 RBC 4.34 Hgb 12.5 Hct 37.6 MCV 87 MCH 28.8 MCHC 33.2 RDW 13.3 Plt Count 212 MPV 11.4 H Immature Gran % 0.7 Neutrophils % 86.6 Lymphocytes % 8.7 Monocytes % 3.8 Eosinophils % 0.0 Basophils % 0.2 Nucleated RBC % 0.0 Absolute Neutrophils 8.98 H Absolute Lymphocytes 0.90 L Absolute Monocytes 0.39 Absolute Eosinophils 0.00 Absolute Basophils 0.02 Sodium 141 Potassium 4.3 Chloride 107 Carbon Dioxide 24.7 Anion Gap 9.3 BUN 17 Creatinine 1.1 H Est GFR (CKD-EPI 2020) 57.88 Glucose 189 H Calcium 9.0 Procalcitonin IgG 934 IgA 139 IgM 78 IgE 32 Add-On Test Request 11/02/22 11/02/22 06:30 06:30 WBC RBC Hgb Hct MCV MCH MCHC RDW Plt Count MPV Immature Gran % Neutrophils % Lymphocytes % Monocytes % Eosinophils % Basophils % Nucleated RBC % Absolute Neutrophils Absolute Lymphocytes Absolute Monocytes Absolute Eosinophils Absolute Basophils Sodium Potassium Chloride Carbon Dioxide Anion Gap BUN Creatinine Est GFR (CKD-EPI 2020) Glucose Calcium Procalcitonin 1.0 IgG IgA IgM IgE Add-On Test Request DONE Time Spent with Patient Time Spent with Patient: 25-34 minutes Time was spent: preparing to see the patient(eg.review tests), obtaining and/or reviewing separately otained hiistory, ordering medications,tests, procedures, referring, communicating with other health primary care coordinator, indepentently interpreting results, counseling the patient and care coordination
[2022-11-02] MEDS: traMADol 50 MG TAB PO (15:43)
[2022-11-02] MEDS: Levalbuterol 1.25 MG/3 ML UPD VIAL UPD ×2 (16:10→19:54)
[2022-11-02 16:50] LABS: Source Nasal/Nares
[2022-11-02 17:39] LABS: COVID-19 PCR Negative (Negative)
[2022-11-02] MEDS: Enoxaparin 40 MG/0.4 ML SYR SC (18:07)
[2022-11-02 23:30] LABS: Legionella Ag Detection Urine Negative (Negative)
[2022-11-03] VITALS (9 sets, daily range): BP systolic 136–171; BP diastolic 72–85; PULSE 73–98; RESP 1–22; TEMP 35.8–37.1; O2SAT 91–97
[2022-11-03] MEDS: PIPERACILLIN/TAZO 3.375 GM in Normal Saline 50 ML IV ×3 (03:45→20:22)
[2022-11-03] MEDS: DOXYCYCLINE 100 MG in Normal Saline 100 ML IVPB ×2 (06:06→17:35)
[2022-11-03] MEDS: Ketorolac 15 MG/ML VIAL IVP ×3 (06:06→17:31)
--- NOTE | 2022-11-03 06:25 | W.PULMPROG ---
Assessment and Plan Assessment and plan (1) Pneumonia: Status: Acute (2) Pain: Status: Acute (3) Pleural effusion on left: Status: Acute Assessment and plan: This is a 57 yo with no prior pulmonary issues and a never smoker who is being admitted for pneumonia with failure of outpatient therapy. She received a Z-pack which was switched to Augmentin 2 days ago for non resolution. She has improved significantly. Her WBC count is normal and her pain is significantly better. She is taking tidal breaths. Her POCUS today found improvement in atelectasis and pneumonia. Her left pleural effusion is even smaller than 2 days ago. The right lung looks normal. When she is ready for D/C I would recommend Augmentin again, with a total of 10 days. Pneumonia - Zosyn and doxycycline - can D/C on Augmentin (10 days total abx course) - blood culture NGTD - sputum culture pending - urine antigens pending - VibraPEP and IS - recommend albuterol nebulizer QID while awake Pain - pain control is sufficient Left pleural effusion - POCUS today: smaller left effusion, now trace to small wih improved parenchyma appearance. General Date Of Service Date of service: 11/03/22 Time of Service: 06:35 Reason for Consult: Pneumonia, concern for pleural effusion Subjective Note Note: Mary is feeling and looking much better from 2 days ago. She can take full deep breaths with much decreased pain. She is using her IS and Acapella. She was able to provide a sputum sample today. She still have some pain of the chest - rates this as a 5 after coughing. Exam Narrative Exam Narrative: Gen: NAD, normal respiratory effort, well-nourished HENT: PERRL Chest: No respiratory distress, normal appearance of chest, clear to auscultation bilaterally, no crackles or wheezes anteriorly, normal inspiratory effort Heart: regular rate and rhythym, no murmurs, rubs or gallops Abdomen: Non-distended, soft, non tender Extremities: No clubbing, edema, cyanosis, rashes Neuro: AAOx3 , non focal Psych: cooperative, appropriate mental affect Objective Last Vital Signs Temp 36.4 C L 11/02/22 23:17 Pulse 88 11/02/22 23:17 Resp 16 11/02/22 23:17 BP 102/64 11/02/22 23:17 Pulse Ox 97 11/02/22 23:17 Laboratory Results - last 24 hr 11/01/22 11/02/22 11/02/22 13:40 06:30 06:30 WBC 10.36 RBC 4.34 Hgb 12.5 Hct 37.6 MCV 87 MCH 28.8 MCHC 33.2 RDW 13.3 Plt Count 212 MPV 11.4 H Immature Gran % 0.7 Neutrophils % 86.6 Lymphocytes % 8.7 Monocytes % 3.8 Eosinophils % 0.0 Basophils % 0.2 Nucleated RBC % 0.0 Absolute Neutrophils 8.98 H Absolute Lymphocytes 0.90 L Absolute Monocytes 0.39 Absolute Eosinophils 0.00 Absolute Basophils 0.02 Sodium 141 Potassium 4.3 Chloride 107 Carbon Dioxide 24.7 Anion Gap 9.3 BUN 17 Creatinine 1.1 H Est GFR (CKD-EPI 2020) 57.88 Glucose 189 H Calcium 9.0 Procalcitonin IgG 934 IgA 139 IgM 78 IgE 32 COVID-19 Source SARS-CoV-2 (PCR) Add-On Test Request 11/02/22 11/02/22 11/02/22 06:30 06:30 16:30 WBC RBC Hgb Hct MCV MCH MCHC RDW Plt Count MPV Immature Gran % Neutrophils % Lymphocytes % Monocytes % Eosinophils % Basophils % Nucleated RBC % Absolute Neutrophils Absolute Lymphocytes Absolute Monocytes Absolute Eosinophils Absolute Basophils Sodium Potassium Chloride Carbon Dioxide Anion Gap BUN Creatinine Est GFR (CKD-EPI 2020) Glucose Calcium Procalcitonin 1.0 IgG IgA IgM IgE COVID-19 Source Nasal/Nares SARS-CoV-2 (PCR) Negative Add-On Test Request DONE Results Medications Medications: Active Medications Generic Name Dose Route Start Last Admin Trade Name Freq PRN Reason Stop Dose Admin Acetaminophen 1,000 mg 11/01/22 20:00 11/02/22 19:54 Acetaminophen 500 Mg Tab PO 11/04/22 16:01 1,000 mg QID RAFAEL Administration Al Hydrox/Mg Hydrox/Simethicone 30 ml 11/01/22 16:58 Mylanta Suspension 30 Ml Cup PO Q2H PRN PRN Dimethicone/Zinc Oxide 0 gm 11/01/22 16:58 Griselda Protect Cream 142 Gm Tube TP PRN PRN Docusate Sodium 100 mg 11/01/22 16:58 Docusate Sodium 100 Mg Cap PO TID PRN PRN Enoxaparin Sodium 40 mg 11/01/22 18:00 11/02/22 18:07 Enoxaparin 40 Mg/0.4 Ml Syr SC 40 mg Q24H ARFAEL Administration Famotidine 20 mg 11/01/22 20:00 11/02/22 19:54 Famotidine 20 Mg Tab PO 20 mg BID RAFAEL Administration Sodium Chloride 500 mls @ 0 mls/hr 11/01/22 16:58 Saline 500ml Bag IV PRN PRN As Directed Piperacillin Sod/Tazobactam 50 mls @ 12.5 mls/hr 11/01/22 20:00 11/03/22 03:45 Sod 3.375 gm/ Sodium Chloride IV 12.5 mls/hr Q8H RAFAEL Administration Doxycycline Hyclate 100 mg/ 100 mls @ 100 mls/hr 11/01/22 18:00 11/03/22 06:06 Sodium Chloride IVPB 100 mls/hr Q12H RAFAEL Administration IV Miscellaneous Supplies 1 each 11/01/22 11:15 Iv Access-Emergency Dept IV DIRECTED [facility] IV Miscellaneous Supplies 1 each 11/01/22 17:00 Iv Access IV DIRECTED [facility] Iohexol 100 ml 11/01/22 14:00 11/01/22 14:00 Omnipaque 350 Mg/Ml 100 Ml Btl IJ 12/01/22 23:59 70 ml DIRECTED RAFAEL Administration Ketorolac Tromethamine 15 mg 11/02/22 00:00 11/03/22 06:06 Ketorolac 15 Mg/Ml Vial IVP 11/03/22 18:01 15 mg Q6H RAFAEL Administration Levalbuterol HCl 1.25 mg 11/02/22 16:00 11/02/22 19:54 Levalbuterol 1.25 Mg/3 Ml Upd Vial UPD 1.25 mg QID RAFAEL Administration Levalbuterol HCl 1.25 mg 11/02/22 15:19 Levalbuterol 1.25 Mg/3 Ml Upd Vial UPD Q2H PRN PRN Lidocaine 1 patch 11/02/22 18:00 11/02/22 18:09 Lidocaine 5% Patch TP Not Given Q24H RAFAEL Magnesium Hydroxide 30 ml 11/01/22 16:58 Milk Of Magnesia 30 Ml Cup PO DAILY PRN PRN Miscellaneous 1 each 11/03/22 06:00 11/03/22 06:08 Patch Removal (Lidocaine) TP Not Given Q24H RAFAEL Morphine Sulfate 3 mg 11/01/22 17:24 Morphine 4 Mg/Ml Syr IVP Q3H PRN PRN Nicotine 21 mg 11/01/22 16:58 Nicotine 21 Mg/24 Hr Patch TD DAILY PRN PRN Ondansetron HCl 4 mg 11/02/22 17:09 Ondansetron 4 Mg/2 Ml Vial IVP Q6H PRN PRN Phenol 117 ml 11/02/22 15:19 Chloraseptic [place] 117 Ml Btl MM QID PRN PRN Polyethylene Glycol 17 gm 11/01/22 16:58 Polyethylene Glycol 3350 17 Gm Packet PO DAILY PRN PRN Constipation Prednisone 40 mg 11/02/22 08:30 11/02/22 07:49 Prednisone 20 Mg Tab PO 11/06/22 08:29 40 mg DAILY RAFAEL Administration Sodium Chloride 0 ml 11/01/22 11:02 11/02/22 18:10 Normal Saline Flush 10 Ml Syr IVP 10 ml PRN PRN Administration Sodium Chloride 50 ml 11/01/22 14:00 11/01/22 14:00 Normal Saline - Diluent 50 Ml Vial IJ 50 ml .FOR DI USE RAFAEL Administration Sodium Chloride 0 ml 11/01/22 16:58 Normal Saline Flush 10 Ml Syr IVP PRN PRN Tramadol HCl 50 mg 11/02/22 15:19 11/02/22 15:43 Tramadol 50 Mg Tab PO 50 mg Q6H PRN PRN Administration Allergies sulfamethoxazole [From Bactrim] Allergy (Severe, Verified 11/01/22 12:35) Anaphylaxsis trimethoprim [From Bactrim] Allergy (Severe, Verified 11/01/22 12:35) Anaphylaxsis Labs 11/03/22 05:40 11/03/22 07:34 Labs: 11/02/22 16:30 Tonsil - Not Specified Group A Streptococcus Culture - Pending 11/01/22 12:30 Blood Blood Culture - Preliminary NO GROWTH 24 HOURS 11/01/22 12:20 Blood Blood Culture - Preliminary NO GROWTH 24 HOURS Laboratory Tests Range/Units 11/01/22 11/01/22 11/01/22 11:10 11:10 11:10 WBC (4.4-10.8) 10^3/uL 12.20 H RBC (3.93-5.22) 10^6/uL 5.14 Hgb (11.2-15.7) g/dL 14.4 Hct (36.0-46.0) % 44.1 MCV (80-95) fL 86 MCH (27.0-33.0) pg 28.0 MCHC (32.0-36.0) % 32.7 RDW (11.7-14.6) % 13.5 Plt Count (130-400) 10^3/uL 220 MPV (8.0-11.0) fL 10.8 Immature Gran % 0.8 Neutrophils % 75.0 Lymphocytes % 16.1 Monocytes % 6.1 Eosinophils % 1.7 Basophils % 0.3 Nucleated RBC % (0.0-0.3) % 0.0 Absolute Neutrophils (1.2-6.7) 10^3/uL 9.15 H Absolute Lymphocytes (1.2-3.4) 10^3/uL 1.96 Absolute Monocytes (0.1-0.8) 10^3/uL 0.74 Absolute Eosinophils (0.0-0.7) 10^3/uL 0.21 Absolute Basophils (0.0-0.2) 10^3/uL 0.04 PT (9.3-11.0) sec INR (0.9-1.1) APTT (21.5-31.9) sec VBG pH (7.31-7.41) 7.37 VBG pCO2 (41-51) mmHg 44 VBG pO2 mmHg 30 VBG HCO3 (23-28) mmol/L 25 VBG Total CO2 (24-29) mmol/L 23 L VBG O2 Saturation % 59 VBG Base Excess (-2-3) mmol/L 0 Sodium (136-145) mmol/L 140 Potassium (3.5-5.1) mmol/L 3.8 Chloride (98-107) mmol/L 104 Carbon Dioxide (21.0-32.0) mmol/L 26.2 Anion Gap (3-11) mmol/L 9.8 BUN (7-18) mg/dL 18 Creatinine (0.55-1.02) mg/dL 1.2 H Est GFR (CKD-EPI 2020) (mL/min/1.73m2) 52.14 Glucose (74-106) mg/dL 117 H Calcium (8.5-10.1) mg/dL 9.5 Magnesium (1.8-2.4) mg/dL 2.0 Total Bilirubin (0.2-1.0) mg/dL 0.5 AST (15-37) U/L 17 ALT (14-59) U/L 27 Alkaline Phosphatase (46-116) U/L 106 Troponin I (<or=60) ng/L < 50 NT-Pro-B Natriuret Pep (<300) pg/mL 114 Total Protein (6.4-8.2) g/dL 8.3 H Albumin (3.4-5.0) g/dL 3.0 L Procalcitonin ng/mL IgG (610-1616) mg/dL IgA (85-499) mg/dL IgM (35-242) mg/dL IgE (<158) IU/mL COVID-19 Source SARS-CoV-2 (PCR) (Negative) Add-On Test Request Range/Units 11/01/22 11/01/22 11/01/22 11:10 13:40 14:10 WBC (4.4-10.8) 10^3/uL RBC (3.93-5.22) 10^6/uL Hgb (11.2-15.7) g/dL Hct (36.0-46.0) % MCV (80-95) fL MCH (27.0-33.0) pg MCHC (32.0-36.0) % RDW (11.7-14.6) % Plt Count (130-400) 10^3/uL MPV (8.0-11.0) fL Immature Gran % Neutrophils % Lymphocytes % Monocytes % Eosinophils % Basophils % Nucleated RBC % (0.0-0.3) % Absolute Neutrophils (1.2-6.7) 10^3/uL Absolute Lymphocytes (1.2-3.4) 10^3/uL Absolute Monocytes (0.1-0.8) 10^3/uL Absolute Eosinophils (0.0-0.7) 10^3/uL Absolute Basophils (0.0-0.2) 10^3/uL PT (9.3-11.0) sec 11.4 H INR (0.9-1.1) 1.1 APTT (21.5-31.9) sec 32.3 H VBG pH (7.31-7.41) VBG pCO2 (41-51) mmHg VBG pO2 mmHg VBG HCO3 (23-28) mmol/L VBG Total CO2 (24-29) mmol/L VBG O2 Saturation % VBG Base Excess (-2-3) mmol/L Sodium (136-145) mmol/L Potassium (3.5-5.1) mmol/L Chloride (98-107) mmol/L Carbon Dioxide (21.0-32.0) mmol/L Anion Gap (3-11) mmol/L BUN (7-18) mg/dL Creatinine (0.55-1.02) mg/dL Est GFR (CKD-EPI 2020) (mL/min/1.73m2) Glucose (74-106) mg/dL Calcium (8.5-10.1) mg/dL Magnesium (1.8-2.4) mg/dL Total Bilirubin (0.2-1.0) mg/dL AST (15-37) U/L ALT (14-59) U/L Alkaline Phosphatase (46-116) U/L Troponin I (<or=60) ng/L < 50 NT-Pro-B Natriuret Pep (<300) pg/mL Total Protein (6.4-8.2) g/dL Albumin (3.4-5.0) g/dL Procalcitonin ng/mL IgG (610-1616) mg/dL 934 IgA (85-499) mg/dL 139 IgM (35-242) mg/dL 78 IgE (<158) IU/mL 32 COVID-19 Source SARS-CoV-2 (PCR) (Negative) Add-On Test Request Range/Units 11/02/22 11/02/22 11/02/22 06:30 06:30 06:30 WBC (4.4-10.8) 10^3/uL 10.36 RBC (3.93-5.22) 10^6/uL 4.34 Hgb (11.2-15.7) g/dL 12.5 Hct (36.0-46.0) % 37.6 MCV (80-95) fL 87 MCH (27.0-33.0) pg 28.8 MCHC (32.0-36.0) % 33.2 RDW (11.7-14.6) % 13.3 Plt Count (130-400) 10^3/uL 212 MPV (8.0-11.0) fL 11.4 H Immature Gran % 0.7 Neutrophils % 86.6 Lymphocytes % 8.7 Monocytes % 3.8 Eosinophils % 0.0 Basophils % 0.2 Nucleated RBC % (0.0-0.3) % 0.0 Absolute Neutrophils (1.2-6.7) 10^3/uL 8.98 H Absolute Lymphocytes (1.2-3.4) 10^3/uL 0.90 L Absolute Monocytes (0.1-0.8) 10^3/uL 0.39 Absolute Eosinophils (0.0-0.7) 10^3/uL 0.00 Absolute Basophils (0.0-0.2) 10^3/uL 0.02 PT (9.3-11.0) sec INR (0.9-1.1) APTT (21.5-31.9) sec VBG pH (7.31-7.41) VBG pCO2 (41-51) mmHg VBG pO2 mmHg VBG HCO3 (23-28) mmol/L VBG Total CO2 (24-29) mmol/L VBG O2 Saturation % VBG Base Excess (-2-3) mmol/L Sodium (136-145) mmol/L 141 Potassium (3.5-5.1) mmol/L 4.3 Chloride (98-107) mmol/L 107 Carbon Dioxide (21.0-32.0) mmol/L 24.7 Anion Gap (3-11) mmol/L 9.3 BUN (7-18) mg/dL 17 Creatinine (0.55-1.02) mg/dL 1.1 H Est GFR (CKD-EPI 2020) (mL/min/1.73m2) 57.88 Glucose (74-106) mg/dL 189 H Calcium (8.5-10.1) mg/dL 9.0 Magnesium (1.8-2.4) mg/dL Total Bilirubin (0.2-1.0) mg/dL AST (15-37) U/L ALT (14-59) U/L Alkaline Phosphatase (46-116) U/L Troponin I (<or=60) ng/L NT-Pro-B Natriuret Pep (<300) pg/mL Total Protein (6.4-8.2) g/dL Albumin (3.4-5.0) g/dL Procalcitonin ng/mL IgG (610-1616) mg/dL IgA (85-499) mg/dL IgM (35-242) mg/dL IgE (<158) IU/mL COVID-19 Source SARS-CoV-2 (PCR) (Negative) Add-On Test Request DONE Range/Units 11/02/22 11/02/22 06:30 16:30 WBC (4.4-10.8) 10^3/uL RBC (3.93-5.22) 10^6/uL Hgb (11.2-15.7) g/dL Hct (36.0-46.0) % MCV (80-95) fL MCH (27.0-33.0) pg MCHC (32.0-36.0) % RDW (11.7-14.6) % Plt Count (130-400) 10^3/uL MPV (8.0-11.0) fL Immature Gran % Neutrophils % Lymphocytes % Monocytes % Eosinophils % Basophils % Nucleated RBC % (0.0-0.3) % Absolute Neutrophils (1.2-6.7) 10^3/uL Absolute Lymphocytes (1.2-3.4) 10^3/uL Absolute Monocytes (0.1-0.8) 10^3/uL Absolute Eosinophils (0.0-0.7) 10^3/uL Absolute Basophils (0.0-0.2) 10^3/uL PT (9.3-11.0) sec INR (0.9-1.1) APTT (21.5-31.9) sec VBG pH (7.31-7.41) VBG pCO2 (41-51) mmHg VBG pO2 mmHg VBG HCO3 (23-28) mmol/L VBG Total CO2 (24-29) mmol/L VBG O2 Saturation % VBG Base Excess (-2-3) mmol/L Sodium (136-145) mmol/L Potassium (3.5-5.1) mmol/L Chloride (98-107) mmol/L Carbon Dioxide (21.0-32.0) mmol/L Anion Gap (3-11) mmol/L BUN (7-18) mg/dL Creatinine (0.55-1.02) mg/dL Est GFR (CKD-EPI 2020) (mL/min/1.73m2) Glucose (74-106) mg/dL Calcium (8.5-10.1) mg/dL Magnesium (1.8-2.4) mg/dL Total Bilirubin (0.2-1.0) mg/dL AST (15-37) U/L ALT (14-59) U/L Alkaline Phosphatase (46-116) U/L Troponin I (<or=60) ng/L NT-Pro-B Natriuret Pep (<300) pg/mL Total Protein (6.4-8.2) g/dL Albumin (3.4-5.0) g/dL Procalcitonin ng/mL 1.0 IgG (610-1616) mg/dL IgA (85-499) mg/dL IgM (35-242) mg/dL IgE (<158) IU/mL COVID-19 Source Nasal/Nares SARS-CoV-2 (PCR) (Negative) Negative Add-On Test Request Pocus Exam Limited Thoracic Lung Exam DATE OF EXAM: 11/03/22 TIME OF EXAM: 08:15 PROVIDER THAT PERFORMED THE STUDY: Daphne Charles IS THIS A REPEAT EXAM DURING THIS ENCOUNTER: No REASON FOR EXAM: Pneumonia VISUALIZED STRUCTURES: right posterior and left posterior PERTINENT FINDINGS/IMPRESSION: Left pleural effusion (trace to small) Exam complete
[2022-11-03 06:50] LABS: Abs Immature Grans 0.04 10^3/uL (0.0-0.06); Absolute Basophil Count 0.05 10^3/uL (0.0-0.2); Absolute Eosinophil Count 0.04 10^3/uL (0.0-0.7); Absolute Lymphocyte Count 1.86 10^3/uL (1.2-3.4); Absolute Monocyte Count 0.68 10^3/uL (0.1-0.8); Absolute Neutrophil Count 7.85 10^3/uL (1.2-6.7); Basophils % 0.5; Eosinophils % 0.4; HCT 35.4 % (36.0-46.0); HGB 11.5 g/dL (11.2-15.7); Immature Grans % 0.4; Lymphocytes % 17.7; MCHC 32.5 % (32.0-36.0); MCV 86 fL (80-95); MPV 11.6 fL (8.0-11.0); Monocytes % 6.5; Neutrophils % 74.5; Platelet Count 207 10^3/uL (130-400); RBC 4.11 10^6/uL (3.93-5.22); RDW 13.4 % (11.7-14.6); RDW-SD 42.5 fL; WBC 10.52 10^3/uL (4.4-10.8)
[2022-11-03 08:07] LABS: Anion Gap 9.8 mmol/L (3-11); BUN 26 mg/dL (7-18); CO2 25.2 mmol/L (21.0-32.0); CREATININE 1.1 mg/dL (0.55-1.02); Calcium 9.1 mg/dL (8.5-10.1); Chloride 108 mmol/L (98-107); Estimated GFR 57.88 (mL/min/1.73m2); Glucose 111 mg/dL (74-106); Magnesium 2.1 mg/dL (1.8-2.4); Potassium 3.9 mmol/L (3.5-5.1); Sodium 143 mmol/L (136-145)
[2022-11-03] MEDS: Acetaminophen 500 MG TAB 1000 MG PO ×4 (08:55→20:15)
[2022-11-03] MEDS: Famotidine 20 MG TAB PO ×2 (08:55→20:20)
[2022-11-03] MEDS: predniSONE 20 MG TAB 40 MG PO (08:55)
[2022-11-03] MEDS: Levalbuterol 1.25 MG/3 ML UPD VIAL UPD ×4 (09:11→19:32)
[2022-11-03] MEDS: Normal Saline Flush 10 ML SYR IVP ×2 (11:49→17:30)
[2022-11-03 14:01] LABS: C Diff PCR Positive (Negative)
[2022-11-03] MEDS: Fidaxomicin 200 MG TAB PO ×2 (14:42→20:19)
[2022-11-03] MEDS: Enoxaparin 40 MG/0.4 ML SYR SC (17:33)
--- NOTE | 2022-11-03 18:09 | CMPROGNOTE_ITS ---
Date of service: 11/03/22 Time of Service: 18:09 Care Management Progress Note Progress Note Text Progress Note Text: S/O: Mary was sitting up in bed when CM met with her today. She stated that she is feeling much better than when she arrived. She reported that her pain is well controlled; nursing reports loose stools, CDiff positive. She discussed how supportive her family and have been without her home, which is hard for her, and she is very appreciative. She reported that she was seen by Pulmonology today, and she had a POCUS which shows improvement of the pleural effusion. CM will continue to follow. A: Mary is a 57 year old female admitted to [facility] on 11/02/22 for pneumonia, chest pain. P: Anticipate Mary will return home once medically cleared. Her will drive her home via private vehicle. She will follow up with her PCP and dis charge plan of care. CM will continue to follow.
--- NOTE | 2022-11-03 18:50 | W.PM.PROGNOT ---
Date of Service Date of service: 11/03/22 Time of Service: 18:50 Assessment and Plan Assessment and plan (1) Pneumonia: Status: Acute Assessment and plan: CAP with failure of outpatient therapy. Blood cultures are with NGTD. Continue zosyn + doxycycline. Improving. C diff does complicate things, and we will need to be careful not to continue systemic antibiotics too long. Continue prednisone. Trend procalcitonin. Will not need bronchoscopy. Discussed with Dr Charles. (2) C. difficile colitis: Status: Acute Assessment and plan: Started on dificid. Continue probiotics. I have also added questran and prn loperamide. We should limit the use of systemic antibiotics to the number of days that are strictly necessary. (3) Pleurisy: Status: Acute Assessment and plan: Continue tylenol, toradol, prn ultram and lidocaine patches. (4) Pharyngitis: Status: Acute Assessment and plan: as above Covid negative. Strep culture is pending. (5) Pleural effusion on left: Status: Acute Assessment and plan: Much improved, per Dr Charles - no need for thoracenthesis (6) DVT prophylaxis: Status: Acute Assessment and plan: Enoxaparin (7) Discharge planning issues: Status: Acute Assessment and plan: Full code Continues to require hospitalization. Subjective Subjective Interval history since last seen: Ms Figueroa has had diarrhea since yesterday. Denies dizziness, CP, SOB. Still has some pleurisy when yawning. Cough is productive, especially so after nebs, and it is a lot of work to bring up the sputum. No n/v. Feels prednisone is making her emotional. C. diff positive. Cannot wait to get home to her kids but states her is doing a great job taking care of them. She shared with me that the kids were actually her grandkids that they adopted and that her son has Asperger's and is doing really well. He misses her. Exam Narrative Exam Narrative: General: Pleasant middle-aged female who looks better, A&Ox3, on RA, no dyspnea/tachypnea/cyanosis HEENT: EOMI, MMM Heart: RRR, no m/r/g Lungs: CTAB Abdomen: soft, nontender, nondistended Extremities: no edema BLEs Objective Last Vital Signs Temp 36.8 C 11/03/22 16:01 Pulse 73 11/03/22 16:01 Resp 16 11/03/22 16:23 BP 152/80 H 11/03/22 16:01 Pulse Ox 91 L 11/03/22 16:01 Laboratory Results - last 24 hr 11/01/22 11/01/22 11/03/22 13:40 15:00 05:40 WBC RBC Hgb Hct MCV MCH MCHC RDW Plt Count MPV Immature Gran % Neutrophils % Lymphocytes % Monocytes % Eosinophils % Basophils % Nucleated RBC % Absolute Neutrophils Absolute Lymphocytes Absolute Monocytes Absolute Eosinophils Absolute Basophils Sodium Cancelled Potassium Cancelled Chloride Cancelled Carbon Dioxide Cancelled Anion Gap Cancelled BUN Cancelled Creatinine Cancelled Est GFR (CKD-EPI 2020) Cancelled Glucose Cancelled Calcium Cancelled Magnesium Cancelled Stl C.difficile Tox PCR IgG Total 954 IgG1 600 IgG2 261 IgG3 27.0 IgG4 33.0 Urine Legionella Ag Negative 11/03/22 11/03/22 11/03/22 05:40 07:34 13:02 WBC 10.52 RBC 4.11 Hgb 11.5 Hct 35.4 L MCV 86 MCH 28.0 MCHC 32.5 RDW 13.4 Plt Count 207 MPV 11.6 H Immature Gran % 0.4 Neutrophils % 74.5 Lymphocytes % 17.7 Monocytes % 6.5 Eosinophils % 0.4 Basophils % 0.5 Nucleated RBC % 0.0 Absolute Neutrophils 7.85 H Absolute Lymphocytes 1.86 Absolute Monocytes 0.68 Absolute Eosinophils 0.04 Absolute Basophils 0.05 Sodium 143 Potassium 3.9 Chloride 108 H Carbon Dioxide 25.2 Anion Gap 9.8 BUN 26 H Creatinine 1.1 H Est GFR (CKD-EPI 2020) 57.88 Glucose 111 H Calcium 9.1 Magnesium 2.1 Stl C.difficile Tox PCR Positive A IgG Total IgG1 IgG2 IgG3 IgG4 Urine Legionella Ag Time Spent with Patient Time Spent with Patient: 35-49 minutes Time was spent: preparing to see the patient(eg.review tests), obtaining and/or reviewing separately otained hiistory, ordering medications,tests, procedures, referring, communicating with other health geriatric personal care aide, indepentently interpreting results, counseling the patient and care coordination
[2022-11-03] MEDS: Loperamide 2 MG CAP PO (18:52)
[2022-11-03] MEDS: guaiFENesin 600 MG TABCR PO (20:20)
[2022-11-03 22:13] LABS: Streptococcus Pneumoniae Ag, U Negative (Negative)
[2022-11-04] VITALS (13 sets, daily range): BP systolic 108–161; BP diastolic 68–93; PULSE 67–96; RESP 1–20; TEMP 36.3–37.3; O2SAT 95–99
[2022-11-04] MEDS: PIPERACILLIN/TAZO 3.375 GM in Normal Saline 50 ML IV ×3 (03:52→20:48)
[2022-11-04] MEDS: DOXYCYCLINE 100 MG in Normal Saline 100 ML IVPB ×2 (05:49→18:05)
[2022-11-04 06:37] LABS: Abs Immature Grans 0.37 10^3/uL (0.0-0.06); Absolute Basophil Count 0.07 10^3/uL (0.0-0.2); Absolute Eosinophil Count 0.08 10^3/uL (0.0-0.7); Absolute Lymphocyte Count 2.24 10^3/uL (1.2-3.4); Absolute Monocyte Count 0.61 10^3/uL (0.1-0.8); Absolute Neutrophil Count 5.41 10^3/uL (1.2-6.7); Basophils % 0.8; Eosinophils % 0.9; HGB 11.6 g/dL (11.2-15.7); Immature Grans % 4.2; Lymphocytes % 25.5; MCH 28.2 pg (27.0-33.0); MCHC 33.1 % (32.0-36.0); MCV 85 fL (80-95); MPV 11.6 fL (8.0-11.0); Monocytes % 6.9; Neutrophils % 61.7; Platelet Count 220 10^3/uL (130-400); RBC 4.12 10^6/uL (3.93-5.22); RDW 13.7 % (11.7-14.6); RDW-SD 43.1 fL; WBC 8.78 10^3/uL (4.4-10.8)
[2022-11-04] MEDS: Levalbuterol 1.25 MG/3 ML UPD VIAL UPD ×4 (07:39→19:30)
[2022-11-04 07:46] LABS: Anion Gap 9.1 mmol/L (3-11); BUN 27 mg/dL (7-18); CO2 24.9 mmol/L (21.0-32.0); Calcium 8.9 mg/dL (8.5-10.1); Chloride 108 mmol/L (98-107); Glucose 103 mg/dL (74-106); Potassium 4.2 mmol/L (3.5-5.1); Sodium 142 mmol/L (136-145)
[2022-11-04] MEDS: Acetaminophen 500 MG TAB 1000 MG PO ×3 (08:39→15:25)
[2022-11-04] MEDS: guaiFENesin 600 MG TABCR PO ×2 (08:40→20:48)
[2022-11-04] MEDS: predniSONE 20 MG TAB 40 MG PO (08:41)
[2022-11-04] MEDS: Fidaxomicin 200 MG TAB PO ×2 (08:41→20:48)
[2022-11-04] MEDS: Famotidine 20 MG TAB PO ×2 (08:42→20:49)
[2022-11-04] MEDS: Cholestyramine/Aspartame PKT 1 EACH PO ×2 (09:33→18:06)
[2022-11-04] MEDS: Loperamide 2 MG CAP PO (09:33)
[2022-11-04] MEDS: Normal Saline 500 ML 30 ML IV (11:43)
--- NOTE | 2022-11-04 17:44 | CMPROGNOTE_ITS ---
Date of service: 11/04/22 Time of Service: 17:44 Care Management Progress Note Progress Note Text Progress Note Text: S/O: Mary was talking on her phone when CM attempted to meet with her. She appears in good spirits and states that her brother is also a patient here, which is who she was talking to. Per report, her pneumonia is improving. She is now being treated for CDiff with dificid. CM will contact her pharmacy to inquire about coverage/copay if she is discharged with a prescription for dificid, as this can be a costly medication. CM will continue to follow. A: Mary is a 57 year old female admitted to [facility] on 11/02/22 for pneumonia, chest pain. P: Anticipate Mary will return home once medically cleared. Her will drive her home via private vehicle. She will follow up with her PCP and discharge plan of care. CM will continue to follow.
[2022-11-04] MEDS: Enoxaparin 40 MG/0.4 ML SYR SC (18:06)
--- NOTE | 2022-11-04 18:38 | PGE_ITS ---
Date of Service Date of service: 11/04/22 Time of Service: 18:38 Assessment and Plan Assessment and plan (1) Pneumonia: Status: Acute Assessment and plan: CAP with failure of outpatient therapy. Blood cultures are with NGTD. Continue zosyn + doxycycline (day 3/5). Improving. C diff does complicate things, and we will need to be careful not to continue systemic antibiotics too long. Continue prednisone for a total of 5 days. Trend procalcitonin. Will not need bronchoscopy. (2) C. difficile colitis: Status: Acute Assessment and plan: Continue dificid. Continue probiotics, questran, and prn loperamide. We should limit the use of systemic antibiotics to the number of days that are strictly necessary. (3) Pleurisy: Status: Acute Assessment and plan: Continue tylenol, toradol, prn ultram and lidocaine patches. (4) Pharyngitis: Status: Acute Assessment and plan: as above Covid negative. Strep culture is pending. (5) Pleural effusion on left: Status: Acute Assessment and plan: Much improved, per Dr Charles - no need for thoracenthesis (6) DVT prophylaxis: Status: Acute Assessment and plan: Enoxaparin (7) Discharge planning issues: Status: Acute Assessment and plan: Full code Continues to require hospitalization. Possible discharge in 24-48 hrs. Subjective Subjective Interval history since last seen: Feels much better. Only pain in L chest wall/ribs when yawning. No diarrhea today. Denies dizziness, SOB, nausea. Would like to try to go home tomorrow evening if possible. I didn't promise it, but stated that I would talk to the pharmacy. Exam Narrative Exam Narrative: General: Pleasant middle-aged female who looks even better than yesterday, A&Ox3, on RA, no dyspnea/tachypnea/cyanosis HEENT: EOMI, MMM Heart: RRR, no m/r/g Lungs: CTAB Abdomen: soft, nontender, nondistended Extremities: no edema BLEs Objective Last Vital Signs Temp 37.3 C 11/04/22 15:06 Pulse 85 11/04/22 16:43 Resp 18 11/04/22 16:43 BP 126/84 11/04/22 15:06 Pulse Ox 97 11/04/22 16:43 Laboratory Results - last 24 hr 11/01/22 11/04/22 11/04/22 15:00 05:48 05:48 WBC 8.78 RBC 4.12 Hgb 11.6 Hct 35.0 L MCV 85 MCH 28.2 MCHC 33.1 RDW 13.7 Plt Count 220 MPV 11.6 H Immature Gran % 4.2 Neutrophils % 61.7 Lymphocytes % 25.5 Monocytes % 6.9 Eosinophils % 0.9 Basophils % 0.8 Nucleated RBC % 0.0 Absolute Neutrophils 5.41 Absolute Lymphocytes 2.24 Absolute Monocytes 0.61 Absolute Eosinophils 0.08 Absolute Basophils 0.07 Sodium Cancelled Potassium Cancelled Chloride Cancelled Carbon Dioxide Cancelled Anion Gap Cancelled BUN Cancelled Creatinine Cancelled Est GFR (CKD-EPI 2020) Cancelled Glucose Cancelled Calcium Cancelled Magnesium Cancelled Ur Strep pneumoniae Ag Negative 11/04/22 07:20 WBC RBC Hgb Hct MCV MCH MCHC RDW Plt Count MPV Immature Gran % Neutrophils % Lymphocytes % Monocytes % Eosinophils % Basophils % Nucleated RBC % Absolute Neutrophils Absolute Lymphocytes Absolute Monocytes Absolute Eosinophils Absolute Basophils Sodium 142 Potassium 4.2 Chloride 108 H Carbon Dioxide 24.9 Anion Gap 9.1 BUN 27 H Creatinine 1.0 Est GFR (CKD-EPI 2020) 64.90 Glucose 103 Calcium 8.9 Magnesium 2.0 Ur Strep pneumoniae Ag Time Spent with Patient Time Spent with Patient: 25-34 minutes Time was spent: preparing to see the patient(eg.review tests), obtaining and/or reviewing separately otained hiistory, ordering medications,tests, procedures, referring, communicating with other health home health care case manager, indepentently interpreting results, counseling the patient and care coordination
[2022-11-04] MEDS: traMADol 50 MG TAB PO (20:50)
[2022-11-05] VITALS (8 sets, daily range): BP systolic 117–148; BP diastolic 72–108; PULSE 72–86; RESP 1–18; TEMP 36.3–37; O2SAT 91–98
[2022-11-05] MEDS: PIPERACILLIN/TAZO 3.375 GM in Normal Saline 50 ML IV ×3 (04:02→20:13)
[2022-11-05] MEDS: DOXYCYCLINE 100 MG in Normal Saline 100 ML IVPB ×2 (06:29→17:55)
[2022-11-05 07:03] LABS: HCT 36.6 % (36.0-46.0); HGB 11.8 g/dL (11.2-15.7); MCH 27.6 pg (27.0-33.0); MCHC 32.2 % (32.0-36.0); MCV 86 fL (80-95); MPV 10.6 fL (8.0-11.0); Nucleated RBC 0.2 % (0.0-0.3); Platelet Count 276 10^3/uL (130-400); RBC 4.28 10^6/uL (3.93-5.22); RDW 13.8 % (11.7-14.6); RDW-SD 43.4 fL; WBC 9.44 10^3/uL (4.4-10.8)
[2022-11-05 07:19] LABS: Anion Gap 10.5 mmol/L (3-11); BUN 20 mg/dL (7-18); C-Reactive Protein 2.48 mg/dL (0.0-0.3); CO2 24.5 mmol/L (21.0-32.0); CREATININE 0.9 mg/dL (0.55-1.02); Calcium 9.1 mg/dL (8.5-10.1); Chloride 107 mmol/L (98-107); Estimated GFR 73.64 (mL/min/1.73m2); Glucose 89 mg/dL (74-106); Magnesium 2.1 mg/dL (1.8-2.4); Potassium 3.9 mmol/L (3.5-5.1); Sodium 142 mmol/L (136-145)
[2022-11-05 07:42] LABS: Lab Add On Test DONE
[2022-11-05 07:52] LABS: Absolute Monocyte Count 0.09 10^3/uL (0.1-0.8); Absolute Neutrophil Count 4.91 10^3/uL (1.2-6.7); Atypical Lymphocytes % 1; Bands % 3
[2022-11-05 07:53] LABS: Absolute Eosinophil Count 0.19 10^3/uL (0.0-0.7); Diff Comment Manual Differential; Metamyelocytes % 7; Myelocytes % 2; RBC Morphology Normal
[2022-11-05] MEDS: Famotidine 20 MG TAB PO ×2 (08:05→20:12)
[2022-11-05] MEDS: Fidaxomicin 200 MG TAB PO ×2 (08:05→20:12)
[2022-11-05] MEDS: guaiFENesin 600 MG TABCR PO ×2 (08:06→20:12)
[2022-11-05] MEDS: predniSONE 20 MG TAB 40 MG PO (08:06)
[2022-11-05 08:39] LABS: Procalcitonin 0.2 ng/mL
[2022-11-05] MEDS: Acetaminophen 325 MG TAB 650 MG PO (09:25)
[2022-11-05] MEDS: Cholestyramine/Aspartame PKT 1 EACH PO (09:27)
[2022-11-05] MEDS: Levalbuterol 1.25 MG/3 ML UPD VIAL UPD (09:35)
[2022-11-05] MEDS: Benzonatate 200 MG CAP PO ×2 (14:31→20:12)
[2022-11-05] MEDS: Ibuprofen 600 MG TAB PO (14:36)
--- NOTE | 2022-11-05 16:14 | W.PM.PROGNOT ---
Date of Service Date of service: 11/05/22 Time of Service: 16:14 Assessment and Plan Assessment and plan (1) Pneumonia: Status: Acute Assessment and plan: CAP with failure of outpatient therapy. Blood cultures are with NGTD. Continue zosyn + doxycycline (day 4/5). Due to worsening pleurisy, will repeat CXR. C diff does complicate things, and we will need to be careful not to continue systemic antibiotics too long. For this reason, I would like to limit systemic antibiotics to 5 days, if possible. Continue prednisone for a total of 5 days. Trend procalcitonin. Will not need bronchoscopy. (2) C. difficile colitis: Status: Acute Assessment and plan: Continue dificid. Continue probiotics, questran, and prn loperamide. We should limit the use of systemic antibiotics to the number of days that are strictly necessary. (3) Pleurisy: Status: Acute Assessment and plan: Continue tylenol, toradol, prn ultram and lidocaine patches. (4) Pharyngitis: Status: Acute Assessment and plan: as above Covid negative. Rapid Strep/culture negative. (5) Pleural effusion on left: Status: Acute Assessment and plan: Much improved, per Dr Charles - no need for thoracenthesis (6) DVT prophylaxis: Status: Acute Assessment and plan: Enoxaparin (7) Discharge planning issues: Status: Acute Assessment and plan: Full code Continues to require hospitalization. Anticipate discharge home tomorrow unless worrisome new findings on CXR. Subjective Subjective Interval history since last seen: Mr Figueroa states she really did not like how benadryl made her feel and she has been very tired/low energy today. She reports worsening pain in her L-sided chest wall with coughing. Cindy moeller helped with the cough. Denies dizziness, SOB, nausea. Had two loose BMs today, stopped after questran. Exam Narrative Exam Narrative: General: Pleasant middle-aged female who looks more tired/uncomfortable, A&Ox3, on RA, no dyspnea/tachypnea/cyanosis HEENT: EOMI, MMM Heart: RRR, no m/r/g Lungs: CTAB Abdomen: soft, nontender, nondistended Extremities: no edema BLEs Objective Last Vital Signs Temp 36.9 C 11/05/22 15:30 Pulse 86 08/19/23 15:30 Resp 18 11/05/22 15:30 BP 136/72 11/05/22 15:30 Pulse Ox 96 11/05/22 15:30 Laboratory Results - last 24 hr 11/05/22 11/05/22 11/05/22 06:08 06:08 06:08 WBC 9.44 RBC 4.28 Hgb 11.8 Hct 36.6 MCV 86 MCH 27.6 MCHC 32.2 RDW 13.8 Plt Count 276 MPV 10.6 Immature Gran % 0.0 Neutrophils % 49.0 Band Neutrophils % 3 Lymphocytes % 35.0 Atypical Lymphs % 1 Monocytes % 1.0 Eosinophils % 2.0 Basophils % 0.0 Metamyelocytes % 7 Myelocytes % 2 Nucleated RBC % 0.2 Absolute Neutrophils 4.91 Absolute Lymphocytes 3.40 Absolute Monocytes 0.09 L Absolute Eosinophils 0.19 Absolute Basophils 0.00 RBC Morphology Normal Sodium 142 Potassium 3.9 Chloride 107 Carbon Dioxide 24.5 Anion Gap 10.5 BUN 20 H Creatinine 0.9 Est GFR (CKD-EPI 2020) 73.64 Glucose 89 Calcium 9.1 Magnesium 2.1 C-Reactive Protein 2.48 H Procalcitonin Add-On Test Request DONE 11/05/22 06:08 WBC RBC Hgb Hct MCV MCH MCHC RDW Plt Count MPV Immature Gran % Neutrophils % Band Neutrophils % Lymphocytes % Atypical Lymphs % Monocytes % Eosinophils % Basophils % Metamyelocytes % Myelocytes % Nucleated RBC % Absolute Neutrophils Absolute Lymphocytes Absolute Monocytes Absolute Eosinophils Absolute Basophils RBC Morphology Sodium Potassium Chloride Carbon Dioxide Anion Gap BUN Creatinine Est GFR (CKD-EPI 2020) Glucose Calcium Magnesium C-Reactive Protein Procalcitonin 0.2 Add-On Test Request Time Spent with Patient Time Spent with Patient: 25-34 minutes Time was spent: preparing to see the patient(eg.review tests), obtaining and/or reviewing separately otained hiistory, ordering medications,tests, procedures, referring, communicating with other health career development coordinator/teacher, indepentently interpreting results, counseling the patient and care coordination
--- NOTE | 2022-11-05 16:43 | DI.RAD_ITS ---
Exam(s) XR PORTABLE CHEST AP EXAM: XR PORTABLE CHEST AP CLINICAL HISTORY: pneumonia with worsening pleuritic chest pain. TECHNIQUE: 2D digital imaging was performed. COMPARISON: CR XR PORTABLE CHEST AP from 11/01/[address] CHEST W from 11/01/2022 FINDINGS: Single AP portable view. Heart size is upper normal. The mediastinum is not widened. There is some persistent infiltrate and pleural effusion on the left side. Also atelectasis in the b remi segments left lower lobe. Minimal change from 11/01/2022. Right lung remains relatively clear with some mild atelectasis in the posterior basal segment of the right lower lobe. IMPRESSION: Minimal change from previous chest x-ray of 4 days ago. DATA REPOSITORY: RADIATION DOSE DELIVERED:
[2022-11-05] MEDS: Lidocaine 5% Patch 1 PATCH TP (16:52)
--- NOTE | 2022-11-05 16:52 | DI.VRAD_ITS ---
PROCEDURE INFORMATION: Exam: XR Chest Exam date and time: 11/05/2022 4:32 PM Age: 57 years old Clinical indication: Other: Pneumonia with worsening pleuritic chest pain TECHNIQUE: Imaging protocol: Radiologic exam of the chest. Views: 1 view. COMPARISON: CT CHEST W 01/11/2022 13:53 FINDINGS: Lungs: Low lung volumes. Bibasilar interstitial infiltrates. Crowding of the central pulmonary vasculature. Pleural spaces: Blunted left costophrenic angle. consistent with pleural effusion. Indistinctness of the right lateral costophrenic angle may represent developing effusion. Heart/Mediastinum: Stable cardiomediastinal silhouette. Bones/joints: Unremarkable for patient's age. IMPRESSION: 1. Bibasilar infiltrates. 2. Low lung volumes with crowding of the central pulmonary vasculature. 3. Left pleural effusion. 4. Possible right pleural effusion. Dictated and Authenticated by: Becky Diamond MD. Ordering:SIA Renee MD
[2022-11-05] MEDS: Enoxaparin 40 MG/0.4 ML SYR SC (17:55)
[2022-11-06] MEDS: PIPERACILLIN/TAZO 3.375 GM in Normal Saline 50 ML IV ×2 (03:30→10:46)
[2022-11-06 04:17] VITALS: BP 129/84; PULSE 74; RESP 18; TEMP 36.4; O2SAT 98
[2022-11-06] MEDS: Acetaminophen 325 MG TAB 650 MG PO ×3 (04:21→16:19)
[2022-11-06 06:24] VITALS: PULSE 71; RESP 18; O2SAT 96
[2022-11-06] MEDS: Levalbuterol 1.25 MG/3 ML UPD VIAL UPD (06:24)
[2022-11-06] MEDS: DOXYCYCLINE 100 MG in Normal Saline 100 ML IVPB (06:32)
[2022-11-06 06:50] LABS: Abs Immature Grans 1.37 10^3/uL (0.0-0.06); Absolute Basophil Count 0.19 10^3/uL (0.0-0.2); Absolute Eosinophil Count 0.19 10^3/uL (0.0-0.7); Absolute Lymphocyte Count 3.19 10^3/uL (1.2-3.4); Absolute Monocyte Count 0.66 10^3/uL (0.1-0.8); Basophils % 1.7; Eosinophils % 1.7; Immature Grans % 12.4; Lymphocytes % 28.9; MCH 28.3 pg (27.0-33.0); MCHC 33.3 % (32.0-36.0); MCV 85 fL (80-95); MPV 10.2 fL (8.0-11.0); Neutrophils % 49.3; Nucleated RBC 0.5 % (0.0-0.3); Platelet Count 294 10^3/uL (130-400); RDW 13.7 % (11.7-14.6); RDW-SD 42.3 fL; WBC 11.03 10^3/uL (4.4-10.8)
[2022-11-06 07:15] LABS: Anion Gap 11.2 mmol/L (3-11); BUN 21 mg/dL (7-18); C-Reactive Protein 1.93 mg/dL (0.0-0.3); CO2 23.8 mmol/L (21.0-32.0); Calcium 9.1 mg/dL (8.5-10.1); Chloride 106 mmol/L (98-107); Glucose 87 mg/dL (74-106); Potassium 3.8 mmol/L (3.5-5.1); Sodium 141 mmol/L (136-145)
[2022-11-06 07:20] LABS: Absolute Neutrophil Count 5.44 10^3/uL (1.2-6.7)
[2022-11-06 07:21] LABS: Diff Comment Diff Reviewed; RBC Morphology Normal
[2022-11-06] MEDS: Fidaxomicin 200 MG TAB PO (09:28)
[2022-11-06] MEDS: Famotidine 20 MG TAB PO (09:28)
[2022-11-06] MEDS: guaiFENesin 600 MG TABCR PO (09:28)
[2022-11-06] MEDS: Benzonatate 200 MG CAP PO ×2 (09:28→16:20)
[2022-11-06] MEDS: Loperamide 2 MG CAP PO (10:46)
[2022-11-06 11:56] VITALS: BP 135/84; PULSE 81; RESP 16; TEMP 37.1; O2SAT 96
--- NOTE | 2022-11-06 14:36 | W.PM.DS.N ---
Date of service: 11/06/22 Time of Service: 14:36 DS: Diagnosis Discharge Diagnosis (1) Pneumonia: Status: Acute Asessment and Plan: Left lower lobe pneumonia with parapneumonic effusion. Patient treated with 5-day course of Zosyn and doxycycline and discharged with 5 more days of Augmentin. (2) Pleural effusion on left: Status: Acute (3) Pleurisy: Status: Acute (4) C. difficile colitis: Status: Acute Asessment and Plan: Patient developed C. difficile diarrhea was treated with Dificid we will continue on 7 more days of Dificid 200 mg p.o. twice daily along with cholestyramine and Bio-K Plus. (5) Pharyngitis: Status: Acute Asessment and Plan: Throat culture negative for strep Discharge Plan Disposition Patient Disposition: Home Condition: Improving Discharge Details Reason For Visit: Pneumonia, Chest Pain Admit Date/Time: 11/02/22 15:05 Admit Provider: Clif Padron Attending Provider: Clif Padron Primary Care Provider: Mona Rosado V Hospital Course Hospital Course: 57-year-old female non-smoker present emergency department on 10/29/2022 with left-sided ear pain but no respiratory symptoms fever chills was diagnosed with otitis media started on azithromycin but Ready presented to the emergency department 10/30/2022 due to dyspnea and nonproductive cough and had a CTA of her chest that did not show PE but demonstrated left basilar pneumonia for which she was put on Augmentin. However when she failed outpatient treatment and returned on 11/01/2022 with severe left-sided pleuritic chest pain she was found to have worsening pneumonia small pleural effusion. She was admitted to the hospital begun on Zosyn and doxycycline. She was started on ketorolac and Tylenol and morphine for her pain. Dr. Charles saw her in consultation on 11/01/2022 and did a [id number] ultrasound and felt that she had a small pleural effusion not large enough to perform thoracentesis. She recommended aggressive antibiotic treatment Zosyn and doxycycline and await the results of her blood and sputum cultures as well as her urine antigens for strep and Legionella. She recommended albuterol nebulizers 4 times daily while awake as well as use of Vibra-pep and incentive spirometry to improve pulmonary toiletry. Blood cultures showed no growth. Patient was put on prednisone and her pleuritic chest pain was treated with lidocaine patches as well as Ultram and Toradol and Tylenol. SARS-CoV-2 was rechecked and found to be negative. Her urine Legionella and strep antigens all came back negative. Sputum grew normal oral michael. Group A strep culture was taken from her throat and came back negative. Patient completed a 5-day course of doxycycline and Zosyn but developed complications with diarrhea was found to have positive C. difficile in her stool and she was started on Dificid. Pleuritic chest pain progressively improved. Patient never required oxygen supplementation throughout her hospital stay. Diarrhea improved with initiation of Dificid. Patient was discharged home on 5-day course of Augmentin 875 mg twice a day and she will complete Fidaxomicin to 100 mg twice daily for another 7 days. Resolved treated with cholestyramine for her diarrhea and placed on Bio-K Plus. Patient is to have follow-up chest x-ray in 10 to 14 days the follow-up with Dr. Bess in a month. Follow-up with her primary care provider next week. Home Meds and New Rx's Prescriptions: New benzonatate 200 mg Capsule 200 mg PO TID PRN PRN (Reason: cough) Qty: 30 0RF cholestyramine-aspartame [Prevalite] 4 gram Powder In Packet 1 packet PO DAILY Qty: 10 0RF Rx Instructions: Stop taking if no BM x 2 days Dificid 200 mg Tablet 200 mg PO BID Qty: 14 0RF dextromethorphan-guaifenesin 10-100 mg/5 mL Syrup 10 ml PO Q4H PRN PRN (Reason: cough) Qty: 237 0RF guaifenesin [Mucus Relief ER] 600 mg Tablet Extended Release 12hr 600 mg PO BID Qty: 20 0RF loperamide 2 mg Capsule 2 mg PO QLOOSE PRN (Reason: loose stool) Qty: 30 0RF nicotine 21 mg/24 hr Patch 24 Hour 21 mg transdermal DAILY PRN PRNQty: 28 0RF Bio-K plus 50 billion cell capsule,delayed release(DR/EC) 1 cap PO DAILY Qty: 30 0RF lidocaine 5 % adhesive patch,medicated 1 patch topical DAILY Qty: 14 0RF Rx Instructions: leave on most painful area of your chest wall for up to 12 hrs amoxicillin-pot clavulanate 875-125 mg tablet 1 tab PO BID Qty: 10 0RF Continued naproxen sodium [Aleve] 220 mg Tablet 440 mg PO HS Patient Comments: not taking per pt 10/29/22 Discontinued azithromycin 250 mg tablet See Rx Instructions .ROUTE .COMPLEX 6 Days Qty: 6 0RF Rx Instructions: For 250 mg dose pack: take 500 mg today (day 1), then 250 mg for 4 days (days 2-5) amoxicillin-pot clavulanate 875-125 mg tablet 1 tab PO BID 7 Days Qty: 14 0RF Discharge Instructions Instructions: Fidaxomicin (By mouth), Pleurisy (DC), C. Diff (Clostridioides Difficile) Infection (DC), Bacterial Pneumonia (GEN) Stand Alone Forms: Nursing Discharge Form Referrals: Mona Rosado MD [Primary Care Provider] - (Please call on Monday to make a follow up appointment for 1-2 weeks) Daphne Charles MD [ [facility] STAFF PHYSICIAN] - (Please call on Monday to make a follow up 1 month) Activity:: Activity as Tolerated Equipment/Supplies:: No Equipment Needed Diet:: Normal Diet Discharge Orders Discharge Orders: Discharge Order (Routine); Ordered 11/06/22 Ordered By: Clif Padron Other Ambulatory Orders: XR chest 2V PA & lateral (Routine) Timeframe: 10 Day Facility: [facility] - Location: DIAGNOSTIC IMAGING DEPT Ordered By: Clif Padron Discharge Data Discharge Date/Time-TO BE ENTERED AT DEPARTURE: 11/06/22 16:38 DS: Summary Time Spent with Patient providing and/or coordinating discharge services: Less than 30 minutes Specific discharge activities: Interview/exam of patient; review of discharge instructions, completion of prescriptions/discharge instructions; discussion w/ nursing and CM; documentation of hospital visit Status at Discharge Functional status at discharge: independent ambulation Overall status at discharge: patient is progressing back to baseline Mental Status: mental status grossly normal Speech and Movement: speech and movement normal Mood: congruent mood Affect: normal affect Exam Narrative Exam Narrative: Mary is alert and oriented x3 she is able to take deep breaths without having pleuritic left-sided chest pain. She is not requiring any oxygen. SPO2 is in the high 90s on room air. Lungs are clear to auscultation anteriorly posteriorly she has much improved aeration in the left lung base without rhonchi or wheezing Heart is regular rate and rhythm Extremities without peripheral edema or cyanosis Psych Mental Status: mental status grossly normal Speech and Movement: speech and movement normal Mood: congruent mood Affect: normal affect DS: Data Vitals/I&O Vitals and I&O: Vital Signs Temperature 37.1 C 11/06/22 11:56 Temperature Source Tympanic 11/06/22 11:56 Pulse 81 11/06/22 11:56 Pulse Rhythm Regular 11/05/22 22:08 Pulse 87 11/01/22 14:40 Respiratory Rate 16 11/06/22 11:56 Respiratory Effort Normal 11/05/22 08:30 Respiratory Depth Normal 11/05/22 22:08 Respiratory Pattern Normal 11/05/22 08:30 Blood Pressure 135/84 11/06/22 11:56 Blood Pressure Mean 79 11/01/22 14:31 Pulse Oximetry 96 11/06/22 11:56 Oxygen Delivery Method Room Air 11/06/22 11:56 Oxygen Flow Rate 0 11/06/22 11:56 Pain Level 0 11/06/22 11:56 Comment RN notified, shes in room. 11/01/22 15:23 Intake & Output 11/05/22 11/06/22 11/06/22 23:59 11:59 23:59 Intake Total 1170 / 2110 100 / 100 Balance 1170 / 2110 100 / 100 Weight 77.8 kg Intake: IV 250 / 950 100 / 100 Oral 920 / 1160 Other: Urine Color Pale Urine Appearance Clear Comment Pt toileted independently Voiding Methods Toilet Data Completed and Pending Labs on day of discharge: Labs from last 24 hours 11/06/22 11/06/22 06:06 06:06 WBC 11.03 H RBC 4.60 Hgb 13.0 Hct 39.0 MCV 85 MCH 28.3 MCHC 33.3 RDW 13.7 Plt Count 294 MPV 10.2 Immature Gran % 12.4 Neutrophils % 49.3 Lymphocytes % 28.9 Monocytes % 6.0 Eosinophils % 1.7 Basophils % 1.7 Nucleated RBC % 0.5 H Absolute Neutrophils 5.44 Absolute Lymphocytes 3.19 Absolute Monocytes 0.66 Absolute Eosinophils 0.19 Absolute Basophils 0.19 RBC Morphology Normal Sodium 141 Potassium 3.8 Chloride 106 Carbon Dioxide 23.8 Anion Gap 11.2 H BUN 21 H Creatinine 1.0 Est GFR (CKD-EPI 2020) 64.90 Glucose 87 Calcium 9.1 Magnesium 2.0 C-Reactive Protein 1.93 H Preliminary micro results at discharge 11/01/22 12:30 Blood Culture - Preliminary Blood NO GROWTH 96 HOURS 11/01/22 12:20 Blood Culture - Preliminary Blood NO GROWTH 96 HOURS PFSH All Active Problems C. difficile colitis (Acute) Discharge planning issues (Acute) DVT prophylaxis (Acute) Pharyngitis (Acute) Pleurisy (Acute) Pain (Acute) COVID-19 (Acute) Acute effusion of left ear (Acute) Sinusitis (Acute) Chest pain (Acute) Pleural effusion (Acute) Pleural effusion on left (Acute) Shortness of breath (Acute) Pneumonia (Acute) Encounter for re-check of laceration wound (Acute) Laceration (Acute) Bronchitis (Acute) Patellar tendonitis of right knee (Chronic) Significant improvement of right patellar tendinitis. Patient is advised to stay away from Cipro or other similar antibiotics because they can predispose to inflammation in the tendons. She also understands that injection of corticosteroid into the patellar tendon is fraught with complications. Follow-up with me as needed Medical History Depression Lumbar strain multiple events:2009,2013,2015,04/2017 Perimenopause Right shoulder strain 2005 Surgical History Fasciotomy, Foot 2008 for plantar fascitis Family History Father Colon cancer GI bleed. 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
--- NOTE | 2022-11-06 17:37 | PDOC.CMDIS ---
Date of service: 11/06/22 Time of Service: 17:37 LACE Index Scoring Tool Questions: Length of Stay (in days): 4 - 6 Was the patient admitted via the E.D.?: Yes E.D. Visits: 1 Answers: Total Score: 8 Risk of Readmission: Low Risk Care Management Discharge Plan Reason for Hospitalization: Pneumonia, chest pain Discharge Plan: Mary is discharged home with no services. She will follow up with her PCP and plan of care as instructed. She is transported home by her via private vehicle.
== END 2022-11-06 16:38 | disposition home or self-care (01) | DRG 194 ==
LOC: ER 13:41 → MS 15:01
PROVIDERS: Internal Medicine; Student in an Organized Health Care Education/Training Program; Admitting Provider Internal Medicine; Emergency Provider Registered Nurse Emergency; PCP Family Medicine; Visit Provider Internal Medicine
DX: J18.9 Pneumonia, unspecified organism (principal); A04.72 Enterocolitis due to Clostridium difficile, not specified as recurrent; J91.8 Pleural effusion in other conditions classified elsewhere; J98.11 Atelectasis; J02.9 Acute pharyngitis, unspecified; R07.81 Pleurodynia; F32.A Depression, unspecified; M76.51 Patellar tendinitis, right knee
CPT/HCPCS: 36410; 36415; 76604; 80048; 80053; 82784; 82805; 84145; 87040; 87449; 87493; 87635; 93005; 96365; 96375; 96376; 99285; J1650; 71045; 71260; 82785; 82787; 83735; 83880; 84484; 85025; 85610; 85730; 86140; 87070; 87081; 87205; 87899; 93010; 94640; 94667; 94668; 94760; 99222; 99232; 99233; 99238; G0378; J1885; J2270; J2405; J2543; J3490; J7512; J7613; J7614

== ENCOUNTER → 2022-11-09 15:36 | Outpatient (CLI) | payer BC, SELFPAY ==
--- NOTE | 2022-11-09 15:40 | DI.RAD_ITS ---
Exam(s) XR CHEST 2V PA LATERAL EXAM: XR CHEST 2V PA LATERAL CLINICAL HISTORY: CAP-J18.9-WORSENING CHEST WALL PAIN AND DYSPNEA TECHNIQUE: 2D digital imaging was performed of the chest. Two images were obtained. PA and lateral views were obtained. COMPARISON: CR,XR XR CHEST 2V PA LATERAL from 10/30/2022 CR XR PORTABLE CHEST AP from 11/01/[address] CHEST W from 11/01/2022 CR,XR XR PORTABLE CHEST AP from 11/05/2022 FINDINGS: MEDIASTINUM: Normal. HEART: Normal. PULMONARY VASCULATURE: Normal. LUNGS: There is an infiltrate seen in the left lung base. PLEURAL SPACE: There is a left pleural effusion which occupies the lower 3rd of the left hemithorax b est appreciated on the lateral view. No right pleural effusion is seen. There is no pneumothorax. BONE:Within normal limits for the patient's age. OTHER FINDINGS:Normal. IMPRESSION: 1. Left basilar infiltrate and left pleural effusion. The findings appear slightly worse compared to the chest x-ray from 11/05/2022. 2. Findings were discussed with Jaylin Davis at 4:05 p.m. on 11/09/2022. DATA REPOSITORY: RADIATION DOSE DELIVERED:
== END ==
PROVIDERS: PCP Family Medicine; Visit Provider Nurse Practitioner Family
DX: R91.8 Other nonspecific abnormal finding of lung field (principal)
CPT/HCPCS: 71046

== ENCOUNTER → 2022-11-22 01:21 | Outpatient (CLI) | payer BC, SELFPAY ==
--- NOTE | 2022-11-22 10:45 | DI.RAD_ITS ---
Exam(s) XR CHEST 2V PA LATERAL EXAM: XR CHEST 2V PA LATERAL CLINICAL HISTORY: follow up pneumonia,pleurisy,j18.9,r09.1 TECHNIQUE: 2D digital imaging was performed of the chest. Two images were obtained. PA and lateral views were obtained. COMPARISON: CR XR CHEST 2V PA LATERAL from 11/09/2022 FINDINGS: MEDIASTINUM: Normal. HEART: Normal. PULMONARY VASCULATURE: Normal. LUNGS: There has been improved aeration of the left lower lobe with linear atelectasis or scarring pr esent. PLEURAL SPACE: There is a persistent left pleural effusion which is small to moderate in size. It davis s decreased slightly in size compared to the prior examination. BONE:Within normal limits for the patient's age. OTHER FINDINGS:Normal. IMPRESSION: 1. Improved aeration of the left lung base with linear atelectasis or scarring present. 2. Persistent slightly decreased in size left pleural effusion. 3. Follow-up chest x-ray to monitor resolution is recommended. If findings persist, a repeat CT scan may be obtained. DATA REPOSITORY: RADIATION DOSE DELIVERED:
== END ==
PROVIDERS: PCP Nurse Practitioner Family; Visit Provider Internal Medicine
DX: J18.9 Pneumonia, unspecified organism (principal); R09.1 Pleurisy
CPT/HCPCS: 71046

== ENCOUNTER 2022-12-05 17:42 | Emergency (ER) | payer BC, SELFPAY ==
--- NOTE | 2022-12-05 17:43 | ED.GENADUL_ITS ---
Discharge Plan Disposition Patient Disposition: Home Discharge Details Clinical Impression: Pleural effusion on left, Shortness of breath, Pneumonia Primary Care Provider: Jaylin Davis ED Provider: Hugo Siegel Home Meds and New Rx's Prescriptions: New amoxicillin-pot clavulanate 875-125 mg tablet 1 tab PO BID 5 Days Qty: 10 0RF doxycycline hyclate 100 mg capsule 100 mg PO BID Qty: 10 0RF ondansetron 4 mg tablet,disintegrating 4 mg PO BID 5 Days Qty: 10 0RF Continued naproxen sodium [Aleve] 220 mg Tablet 440 mg PO Q6H Patient Comments: not taking per pt 10/29/22 benzonatate 200 mg Capsule 200 mg PO TID PRN PRN (Reason: cough) Qty: 30 0RF cholestyramine-aspartame [Prevalite] 4 gram Powder In Packet 1 packet PO DAILY Qty: 10 0RF Patient Comments: not taking Rx Instructions: Stop taking if no BM x 2 days Dificid 200 mg Tablet 200 mg PO BID Qty: 14 0RF Patient Comments: not taking dextromethorphan-guaifenesin 10-100 mg/5 mL Syrup 10 ml PO Q4H PRN PRN (Reason: cough) Qty: 237 0RF guaifenesin [Mucus Relief ER] 600 mg Tablet Extended Release 12hr 600 mg PO BID Qty: 20 0RF loperamide 2 mg Capsule 2 mg PO QLOOSE PRN (Reason: loose stool) Qty: 30 0RF Patient Comments: not taking nicotine 21 mg/24 hr Patch 24 Hour 21 mg transdermal DAILY PRN PRNQty: 28 0RF Patient Comments: not taking lidocaine 5 % adhesive patch,medicated 1 patch topical DAILY Qty: 14 0RF Rx Instructions: leave on most painful area of your chest wall for up to 12 hrs Discharge Instructions Instructions: Dyspnea (ED) Additional Instructions: You are seen in the emergency department for your shortness of breath. It appears that you have a recurrent left-sided pneumonia with small increase in fluid in the left side of your lung for which you are receiving 2 antibiotics that you should take as directed. You are also receiving medicine for nausea that you should use only as needed. If you develop fevers chills worsening shortness of breath or cannot eat or drink please return to the emergency department. Please follow-up as previously scheduled with your timber bucker later this week. You received a medicine for pain tonight. Please do not drink alcohol or drive after taking this medication. For your pain please take medications as follows: 1. Take acetaminophen (Tylenol), 1,000 mg (two 500 mg tabs) every 6 hours 2. Take ibuprofen (Advil), 400 mg every 6 hours. Medical Decision Making This is an overall very well-appearing normothermic and not tachycardic 57-year- old female with history last month of left-sided pleural effusion now with worsening shortness of breath concerning for recurrent effusion and, given recent hospitalization also concerning for the possibility of PE. Will obtain CT angiogram of the patient's chest to assess for PE. Given her age and shortness of breath will obtain ECG and single troponin. Clear breath sounds bilaterally and no trauma so doubt PTX. No abdominal pain to suggest pancreatitis. No pain out of proportion to suggest necrotizing soft tissue infection. No rash to chest to suggest zoster. Not hypotensive nor dialysis patient to suggest tamponade. No fevers making my suspicion lower for recurrent pneumonia. Not a smoker no history of any wheezes to suggest COPD exacerbation. Will reassess following labs and imaging. 7:21 PM COVID influenza RSV negative. Negative troponin. Basic metabolic panel with no [place]. No anion gap. Normal bicarbonate not consistent with DKA. CBC with no anemia thrombocytopenia nor leukocytosis. VBG with no acidemia nor hypercarbia. 8:58 PM I met with the patient and explained the results of her CAT scan. Given mild left basilar airspace opacity per virtual radiology read which has increased in some areas along with increased small left-sided pleural effusion I am concerned for the possibility of recurrent pneumonia for which I will plan on treating the patient with amoxicillin clavulanic acid and doxycycline. I explained to her that I felt that the benefits of antibiotics outweigh the risks given her change in symptoms. Her port score is 59 points as a result of her age, her female sex, and her pleural effusion making her appropriate for outpatient trial. Patient is also having discomfort so we will treat with ibuprofen, acetaminophen, and oxycodone. We will send her with as needed ondansetron's at home for nausea. She does have outpatient pulmonology follow-up later this week. I advised ED return for fevers and vomiting to tolerate p.o. worsening pain or difficulty breathing. She is not hypoxic nor tachycardic so I feel that she warrants an empiric trial of expectant outpatient management. She understood her return indications. HPI General Date/Time Provider Initiated Documentation: 12/05/22 17:43 . HPI Narrative: This is a 57-year-old female with pneumonia with left-sided pleural effusion diagnosed last month requiring hospitalization now with recurrent shortness of breath. Patient called her primary care provider today. She was advised to come to the ED for a CAT scan. She is due to see pulmonology next week. She was initially feeling better following her hospitalization but over the past several days has had worsening shortness of breath. She has not had any significant cough. She has no history of hypertension hyperlipidemia nor diabetes. She has been using her incentive spirometry and being able to pull approximately 1000 cc. She has never had a PE nor DVT. She has had no fevers recently. Related Data Home Medications Medication Instructions Recorded Confirmed naproxen sodium 220 mg tablet 440 mg PO Q6H 07/06/21 12/05/22 (Aleve) benzonatate 200 mg capsule 200 mg PO TID PRN PRN cough #30 11/05/22 12/05/22 caps cholestyramine-aspartame 4 gram 1 packet PO DAILY #10 ea 11/05/22 oral powder for susp in a packet (Prevalite) dextromethorphan-guaifenesin 10 10 ml PO Q4H PRN PRN cough #237 mL 11/05/22 12/05/22 mg-100 mg/5 mL oral syrup fidaxomicin 200 mg tablet (Dificid) 200 mg PO BID #14 tabs 11/05/22 guaifenesin 600 mg tablet, 600 mg PO BID #20 tabs 11/05/22 12/05/22 extended release 12 hr (Mucus Relief ER) lidocaine 5 % topical patch 1 patch topical DAILY #14 ea 11/05/22 12/05/22 loperamide 2 mg capsule 2 mg PO QLOOSE PRN loose stool #30 11/05/22 caps nicotine 21 mg/24 hr daily 21 mg transdermal DAILY PRN PRN 11/05/22 12/05/22 transdermal patch #28 ea amoxicillin 875 mg-potassium 1 tab PO BID 5 days #10 tabs 12/05/22 clavulanate 125 mg tablet doxycycline hyclate 100 mg capsule 100 mg PO BID #10 caps 12/05/22 ondansetron 4 mg disintegrating 4 mg PO BID 5 days #10 tabs 12/05/22 tablet Previous Rx's Medication Instructions Recorded benzonatate 200 mg capsule 200 mg PO TID PRN PRN cough #30 11/05/22 caps cholestyramine-aspartame 4 gram 1 packet PO DAILY #10 ea 11/05/22 oral powder for susp in a packet (Prevalite) dextromethorphan-guaifenesin 10 10 ml PO Q4H PRN PRN cough #237 mL 11/05/22 mg-100 mg/5 mL oral syrup fidaxomicin 200 mg tablet (Dificid) 200 mg PO BID #14 tabs 11/05/22 guaifenesin 600 mg tablet, 600 mg PO BID #20 tabs 11/05/22 extended release 12 hr (Mucus Relief ER) lidocaine 5 % topical patch 1 patch topical DAILY #14 ea 11/05/22 loperamide 2 mg capsule 2 mg PO QLOOSE PRN loose stool #30 11/05/22 caps nicotine 21 mg/24 hr daily 21 mg transdermal DAILY PRN PRN 11/05/22 transdermal patch #28 ea amoxicillin 875 mg-potassium 1 tab PO BID 5 days #10 tabs 12/05/22 clavulanate 125 mg tablet doxycycline hyclate 100 mg capsule 100 mg PO BID #10 caps 12/05/22 ondansetron 4 mg disintegrating 4 mg PO BID 5 days #10 tabs 12/05/22 tablet Allergies Allergy/AdvReac Type Severity Reaction Status Date / Time sulfamethoxazole Allergy Severe Anaphylaxsi Verified 12/05/22 17:54 [From Bactrim] s trimethoprim [From Bactrim] Allergy Severe Anaphylaxsi Verified 12/05/22 17:54 s General NICK: 3 PFSH All Active Problems (Updated 12/05/22 @ 21:06 by Hugo Siegel MD) C. difficile colitis (Acute) Pleurisy (Acute) COVID-19 (Acute) Pleural effusion on left (Acute) Shortness of breath (Acute) Pneumonia (Acute) Encounter for re-check of laceration wound (Acute) Laceration (Acute) Bronchitis (Acute) Patellar tendonitis of right knee (Chronic) Significant improvement of right patellar tendinitis. Patient is advised to stay away from Cipro or other similar antibiotics because they can predispose to inflammation in the tendons. She also understands that injection of corticosteroid into the patellar tendon is fraught with complications. Follow-up with me as needed Medical History (Updated 12/05/22 @ 21:06 by Hugo Siegel MD) Depression Lumbar strain multiple events:2009,2013,2015,04/2017 Perimenopause Right shoulder strain 2005 Surgical History Fasciotomy, Foot 2008 for plantar fascitis Family History Father Colon cancer GI bleed. 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 Do you feel safe at home: Yes Do you feel safe in your relationship?: Yes Exam Narrative Exam Narrative: General: Well-appearing in no acute distress speaking in complete sentences. Head: Normocephalic, atraumatic. Eye: Pupils equal, round reactive to light. Extraocular eye movements intact. No conjunctival injection. No scleral icterus. Ear, nose, mouth, throat: Grossly normal inspection. Normal voice, handling secretions normally. Neck: Trachea midline. Cardiovascular: Well-perfused distal extremities. Regular rate and rhythm. Respiratory: Nonlabored respiration. Mildly decreased left-sided lower lobe lung sounds. No wheezes. No tripoding. No tachypnea. Gastrointestinal: Nondistended abdomen. Soft nontender. Musculoskeletal: No edema. Moving all 4 extremities spontaneously. Skin: Normal for age and race, grossly normal temperature and turgor. No acute rash. Neurologic: Alert and appropriate, no apparent acute deficits. Psychiatric: Mood and manner are appropriate. Grooming and personal hygiene are appropriate.
--- NOTE | 2022-12-05 17:45 | DI.CT_ITS ---
Exam(s) CT CHEST PE CTA EXAM: CT CHEST PE CTA CLINICAL HISTORY: Shortness of breath high pretest probability. TECHNIQUE: Imaging Protocol: Axial CT angiography was performed with multi-slice acquisition and mu lti-planar and/or 3D reconstructions. CONTRAST MATERIAL: Intravenous: Omnipaque 350 contrast volume:64 mL COMPARISON: CT CT CHEST W from 11/01/2022 FINDINGS: Tracheobronchial tree: Patent where visualized. Pulmonary parenchyma: There is a persistent area of consolidation in the left lower lobe. It has dec reased in size compared to the prior examination. There is a persistent small left pleural effusion. No architectural distortion. Calcified granuloma in the right lower lobe. Pulmonary Arteries: No evidence of filling defect to suggest pulmonary emboli. Mediastinum and Connie: No dominant adenopathy or fluid collection. The esophagus is unremarkable. Visualized thyroid gland: Unremarkable. Pleura: No pneumothorax or right pleural effusion. Heart: The heart is not dilated. No coronary artery calcifications are seen. No pericardial effusion. Aorta: Thoracic aorta non-dilated. No evidence of dissection. Upper abdomen: Cholelithiasis. There is a stable left hepatic cyst. Soft tissues: Unremarkable. Bones: Within normal limits for the patient's age. IMPRESSION: 1. No evidence of pulmonary embolism, thoracic aortic dissection or aneurysm. 2. Persistent left basilar opacity and left pleural effusion. Overall the left basilar infiltrate davis s improved since the prior examination. The right lung base has resolved. 3. Cholelithiasis. RADIATION DOSE DELIVERED: 510.86mGy.cm Total DLP DATA REPOSITORY: All CT scans at this facility are submitted to the National Radiology Data Registry (NRDR) Dose Index Registry (DIR) with the [employer] (ACR). RADIATION OPTIMIZATION: All CT scans at this facility use at least one of these dose optimization te chniques: automated exposure control; mA and/or kV adjustment per patient size (includes targeted exa ms where dose is matched to clinical indication); or iterative reconstruction.
--- NOTE | 2022-12-05 17:45 | RT.EKG_ITS ---
APPROVED REPORT Exam: Resting ECG Reason for Exam: Shortness of breath Patient Location: E HR:65 bpm ECG Measurements Heart Rate 65 AXIS ND 182 P 37 QRSd 82 QRS 17 QT 382 T 37 QTc 398 Conclusion Sinus rhythm...normal P axis, V-rate 60- 99 Narrow complex normal sinus rhythm at a rate of 65. Normal axis. Intervals within normal limits. N o ST segment abnormalities. No acute injury pattern. Appears similar to prior dated last month.
[2022-12-05 17:48] VITALS: BP 145/91; PULSE 77; RESP 18; TEMP 37.1; O2SAT 97
[2022-12-05 18:19] LABS: BE (Venous) 2 mmol/L (-2-3); HCO3 (Venous) 27 mmol/L (23-28); O2 Sat (Venous) 58 %; TCO2 (Venous) 24 mmol/L (24-29); pCO2 (Venous) 47 mmHg (41-51); pH (Venous) 7.37 (7.31-7.41); pO2 (Venous) 31 mmHg
[2022-12-05 18:22] LABS: Abs Immature Grans 0.02 10^3/uL (0.0-0.06); Absolute Basophil Count 0.05 10^3/uL (0.0-0.2); Absolute Eosinophil Count 0.06 10^3/uL (0.0-0.7); Absolute Lymphocyte Count 2.28 10^3/uL (1.2-3.4); Absolute Monocyte Count 0.39 10^3/uL (0.1-0.8); Absolute Neutrophil Count 3.04 10^3/uL (1.2-6.7); Basophils % 0.9; HCT 43.2 % (36.0-46.0); HGB 14.3 g/dL (11.2-15.7); Immature Grans % 0.3; MCH 28.1 pg (27.0-33.0); MCHC 33.1 % (32.0-36.0); MCV 85 fL (80-95); MPV 10.3 fL (8.0-11.0); Monocytes % 6.7; Neutrophils % 52.1; Platelet Count 240 10^3/uL (130-400); RBC 5.09 10^6/uL (3.93-5.22); RDW 13.1 % (11.7-14.6); RDW-SD 40.2 fL; WBC 5.84 10^3/uL (4.4-10.8)
[2022-12-05 18:40] LABS: Anion Gap 8.4 mmol/L (3-11); BUN 16 mg/dL (7-18); CO2 26.6 mmol/L (21.0-32.0); CREATININE 0.9 mg/dL (0.55-1.02); Calcium 9.6 mg/dL (8.5-10.1); Chloride 103 mmol/L (98-107); Estimated GFR 73.64 (mL/min/1.73m2); Glucose 107 mg/dL (74-106); Potassium 3.7 mmol/L (3.5-5.1); Sodium 138 mmol/L (136-145); Troponin I < 50 ng/L (<or=60)
[2022-12-05 19:05] LABS: COVID-19 PCR Negative (Negative); Influenza A PCR Negative (Negative); Influenza B PCR Negative (Negative); RSV PCR Negative (Negative)
[2022-12-05 19:08] LABS: Source NASOPHARYNX
[2022-12-05] MEDS: Normal Saline - Diluent 50 ML VIAL IJ (19:50)
[2022-12-05] MEDS: Omnipaque 350 MG/ML 100 ML BTL IJ (19:50)
[2022-12-05] MEDS: Normal Saline Flush 10 ML SYR IVP (19:51)
--- NOTE | 2022-12-05 20:35 | DI.VRAD_ITS ---
PROCEDURE INFORMATION: Exam: CTA Chest With Contrast Exam date and time: 12/05/2022 7:46 PM Age: 57 years old Clinical indication: Pain; Left-sided; Patient HX: SOB high pretest probability TECHNIQUE: Imaging protocol: Computed tomographic angiography of the chest with contrast. Exam focused on the arteries. 3D rendering (Not supervised by radiologist): MIP and/or 3D reconstructed images were created by the technologist. Radiation optimization: All CT scans at this facility use at least one of these dose optimization techniques: automated exposure control; mA and/or kV adjustment per patient size (includes targeted exams where dose is matched to clinical indication); or iterative reconstruction. Contrast material: OMNIPAQUE 350; Contrast volume: 64 ml; Contrast route: INTRAVENOUS (IV); COMPARISON: CT CHEST PE CTA 10/30/2022 7:34 PM FINDINGS: Pulmonary arteries: No filling defects within the pulmonary arteries are identified to suggest pulmonary embolism. Aorta: Unremarkable. No aortic aneurysm. No aortic dissection. Lungs: Again noted is multifocal airspace opacity within the left lung base, which is improved in the lingula and lateral base of the left lower lobe, but is increased within the dependent aspect of the left lower lobe. Findings suggest atelectasis. The prior mild airspace opacity within the right lung base has nearly completely resolved with residual minimal atelectasis. Pleural spaces: There is a small mostly freely layering left pleural effusion which is mildly increased in size since prior study. Findings suggest regions of mild pleural thickening at the left lung base. There is no evidence of pneumothorax. Heart: Heart size is within normal limits. There is no pericardial effusion. There is no coronary artery calcification. Lymph nodes: There is no evidence of lymphadenopathy. Liver: Again noted is a small cyst within the left hepatic lobe. Gallbladder and bile ducts: Again noted are multiple gallstones. There is no CT evidence of acute gallbladder inflammation. There is no biliary ductal dilatation. Pancreas: The pancreas is mildly atrophic, but otherwise appears unremarkable without focal lesion or evidence of acute inflammation. Bones/joints: The thoracic spine demonstrates mild degenerative changes at multiple levels. No acute fractures are identified. Soft tissues: Unremarkable. IMPRESSION: 1. No pulmonary embolism identified. 2. Mild left basilar airspace opacity, improved in some regions but increased in other regions, which has a configuration suggesting atelectasis. The prior right basilar airspace opacity has nearly resolved. 3. Mild increase in small left pleural effusion. 4. Gallstones. Dictated and Authenticated by: Hugo Magdaleno MD. Ordering:ALEX Arias MD
[2022-12-05] MEDS: Doxycycline Hyclate 100 MG CAP PO (21:17)
[2022-12-05] MEDS: Amoxicillin 875/Clav. 125 TAB PO (21:17)
[2022-12-05] MEDS: oxyCODONE 5 MG TAB PO (21:18)
[2022-12-05] MEDS: Acetaminophen 500 MG TAB 1000 MG PO (21:18)
[2022-12-05] MEDS: Ibuprofen 600 MG TAB PO (21:18)
== END 2022-12-05 21:43 | disposition home or self-care (01) ==
PROVIDERS: Emergency Provider Emergency Medicine; PCP Nurse Practitioner Family
DX: J18.9 Pneumonia, unspecified organism (principal); J90 Pleural effusion, not elsewhere classified; Z20.822 Contact with and (suspected) exposure to COVID-19; Z79.899 Other long term (current) drug therapy
CPT/HCPCS: 71275; 80048; 82805; 87637; 93005; 99285; 84484; 85025; 93010; J3490

== ENCOUNTER 2022-12-12 11:49 | Day surgery (SDC) | payer BC, SELFPAY ==
[2022-12-12] VITALS (8 sets, daily range): BP systolic 88–145; BP diastolic 44–92; PULSE 71–84; RESP 16–21; TEMP 36.3–37.1; O2SAT 95–97; BMI 32.8
--- NOTE | 2022-12-12 09:14 | W.PM.OP ---
Date of service: 12/12/22 Time of Service: 07:30 Operative Note Operative Note Refer to Anesthesia Record Procedure Description: Bronchoscopy Indication:Non resolving pneumonia Procedure performed: Flexible bronchoscopy with BAL Sedation plan: General anesthesia Informed consent was obtained after the risks and benefits or the procedure were discussed. Anesthesia sedated and intubated the patient. A proper and complete OR compliant time out was performed. The therapeutic 6.2mm Olympus bronchoscope was inserted through the endotracheal tube and inserted into the airways, where 3cc in total of 1% topical lidocaine was used the anesthetize the airways. The trachea was midline and without lesion or injury. The mucosa appeared normal and there were no signs of tracheomalacia. The colleen was sharp. All bronchial subsegments were visualized within each lobe and showed normal anatomy without significant mucus. A bronchoalveolar lavage was performed in the LLL. A total of 120cc of saline was administered with a return of 35cc. The fluid was slightly cloudy in appearance. The bronchoscope was then removed and the case terminated. The patient was taken to PACU in stable condition. Samples collected: LLL BAL Testing ordered: cell diff, bacterial, AFB and fungal cultures, cytopathology Complications:None Daphne Charles MD Pulmonary & Critical Care Medicine
[2022-12-12] MEDS: Lactated Ringers 1,000 ML 80 ML IV (12:15)
--- NOTE | 2022-12-12 12:37 | ANES.PREOP_ITS ---
General Info Date of Service Date Performed: 12/12/22 Height: 4 ft 11 in Weight: 73.7 kg Body Mass Index (BMI): 32.8 Surgical Procedure: Operation Date: 12/12/22 13:40 Proposed Procedure Side Surgeon carlos Charles MD Meds Allergies and Home Medications Allergies Allergy/AdvReac Type Severity Reaction Status Date / Time sulfamethoxazole Allergy Severe Anaphylaxsi Verified 12/12/22 12:12 [From Bactrim] s trimethoprim [From Bactrim] Allergy Severe Anaphylaxsi Verified 12/12/22 12:12 s Home Medication Medication Instructions Recorded benzonatate 200 mg capsule 200 mg PO TID PRN PRN cough #30 11/05/22 caps dextromethorphan-guaifenesin 10 10 ml PO Q4H PRN PRN cough #237 mL 11/05/22 mg-100 mg/5 mL oral syrup lidocaine 5 % topical patch 1 patch topical DAILY #14 ea 11/05/22 doxycycline hyclate 100 mg capsule 100 mg PO BID #10 caps 12/05/22 gabapentin 100 mg capsule 200 mg PO TID #150 caps 12/08/22 ibuprofen 400 mg tablet 400 mg PO BID 12/08/22 oxycodone-acetaminophen 2.5 mg-325 1 tab PO Q6H PRN 12/08/22 mg tablet (Percocet) Current Visit Medications: Current Medications Generic Name Dose Route Start Last Admin Trade Name Freq PRN Reason Stop Dose Admin Albuterol/Ipratropium 3 ml 12/12/22 09:12 Albuterol/Ipratropium 3 Ml Upd Vial UPD 01/11/23 09:11 Q2H PRN PRN Ringer's Solution 1,000 mls @ 80 mls/hr 12/12/22 06:00 12/12/22 12:15 IV 01/08/23 23:59 80 mls/hr INFUSION RAFAEL Administration IV Miscellaneous Supplies 1 each 12/12/22 06:00 Iv Access IV 01/08/23 23:59 DIRECTED RAFAEL Sodium Chloride 0 ml 12/12/22 06:00 Normal Saline Flush 10 Ml Syr IV 01/08/23 23:59 PRN PRN Sodium Chloride 0 ml 12/12/22 06:00 Normal Saline 10 Ml Vial IJ 01/08/23 23:59 DIRECTED PRN Sterile Water 0 ml 12/12/22 06:00 Water,Injection,Sterile 10 Ml Vial IJ 01/08/23 23:59 DIRECTED PRN PFSH Active Problems Active Problems: Problem Status Onset Code Patellar tendonitis of right knee M76.51 Bronchitis J40 Laceration Encounter for re-check of laceration wound COVID-19 U07.1 Pleural effusion on left J90 Shortness of breath R06.02 Pneumonia J18.9 Pleurisy R09.1 C. difficile colitis A04.72 Medical History Medical History Depression Lumbar strain multiple events:2009,2013,2015,04/2017 Perimenopause Right shoulder strain 2005 Medical History Comments:: Hx of very anxious episode in a past surgery resulting in her getting hysterical coming out of sedation if spouse not present. Requests spouse to be in PACU when she awakes. Surgical History Surgical History Fasciotomy, Foot 2008 for plantar fascitis History of bladder surgery History of x2 Hx of appendectomy Tobacco Smoking/Tobacco Use Status: Never Alcohol Alcohol Intake: current Alcohol intake frequency: holidays/special occasions only Substance Use Substance use: Never Substance use type: does not use Vital Signs and Lab Results Vital Signs Most Recent Vital Signs in EMR: Most Recent Vital Signs Temp Pulse Resp BP Pulse Ox 37.1 C 84 18 145/92 H 97 12/12/22 11:56 12/12/22 11:56 12/12/22 11:56 12/12/22 11:56 12/12/22 11:56 Lab Results Blood Type / Crossmatch: No Data to Display Complete Blood Count: White Blood Count 5.84 10^3/uL (4.4-10.8) 12/05/22 18:11 Red Blood Count 5.09 10^6/uL (3.93-5.22) 12/05/22 18:11 Hemoglobin 14.3 g/dL (11.2-15.7) 12/05/22 18:11 Hematocrit 43.2 % (36.0-46.0) 12/05/22 18:11 Platelet Count 240 10^3/uL (130-400) 12/05/22 18:11 Complete Metabolic Panel: Sodium 138 mmol/L (136-145) 12/05/22 18:11 Potassium 3.7 mmol/L (3.5-5.1) 12/05/22 18:11 Chloride 103 mmol/L (98-107) 12/05/22 18:11 Carbon Dioxide 26.6 mmol/L (21.0-32.0) 12/05/22 18:11 BUN 16 mg/dL (7-18) 12/05/22 18:11 Creatinine 0.9 mg/dL (0.55-1.02) 12/05/22 18:11 Est GFR (CKD-EPI 2020) 73.64 (mL/min/1.73m2) 12/05/22 18:11 Calcium 9.6 mg/dL (8.5-10.1) 12/05/22 18:11 Glucose 107 mg/dL (74-106) H 12/05/22 18:11 Liver Function Panel: No Data to Display Coagulation Panel: No Data to Display Cardiac Panel: Troponin I < 50 ng/L (<or=60) 12/05/22 Arterial Blood Gas: No Data to Display Venous Blood Gas: Venous Blood pH 7.37 (7.31-7.41) 12/05/22 18:11 Venous Blood Partial Pressure O2 31 mmHg 12/05/22 18:11 Venous Blood Partial Pressure CO2 47 mmHg (41-51) 12/05/22 18:1 1 Venous Blood Oxygen Saturation 58 % 12/05/22 18:11 Venous Blood HCO3 27 mmol/L (23-28) 12/05/22 18:11 Venous Blood Base Excess 2 mmol/L (-2-3) 12/05/22 18:11 Venous Blood Total Carbon Dioxide 24 mmol/L (24-29) 12/05/22 18 :11 Pancreas Panel: No Data to Display Thyroid Panel: No Data to Display Infectious Disease: Coronavirus (COVID-19)(PCR) Negative (Negative) 12/05/22 18:12 Coronavirus 2019 Source NASOPHARYNX 12/05/22 18:12 Influenza Virus Type A (PCR) Negative (Negative) 12/05/22 18:1 2 Influenza Virus Type B (PCR) Negative (Negative) 12/05/22 18:1 2 Respiratory Syncytial Virus (PCR) Negative (Negative) 12/05/22 18:12 Blood Cultures: No Data to Display Toxicology Panel: No Data to Display Anesthesia Assessment and Plan Anesthesia History Personal History: No History of Anesthesia Complications Family History: No Family History of Anesthesia Complications Exercise Tolerance Exercise Tolerance: Metabolic Equivalents>4 Pertinent Negatives Pertinent Negatives: No Symptoms of GERD and No Major Cardiovascular Symptoms or Complaints Cardiac & Pulmonary Exam Cardiac Exam: Normal S1/S2 Heart Sounds Pulmonary Exam: Clear Bilateral Breath Sounds Implantable Cardiac Device Does patient have a Pacemaker or an ICD?: No Airway Exam Known Difficult Airway: No Mallampati Class: 2 Mouth Opening: Normal (> 3cm) Thyromental Distance: Less than 3 cm Neck Range of Motion: Full ROM Neck Circumference: Normal Teeth Condition: Normal Dentition ASA Classification ASA Score: ASA 2 Emergency Case?: No NPO Status NPO Status: NPO Clears >2 hours, Solids >8 hours Anesthesia Plan Resuscitation Status: Full Code Anesthesia Technique: General Anesthesia Airway Planned: Endotracheal Tube Monitors Used: Standard Monitors
[2022-12-12] MEDS: Lidocaine 1% Pres-Free 5 ML VIAL (14:36)
--- NOTE | 2022-12-12 14:39 | PAPNONF_PTH ---
PATIENT: Mary Figueroa LOC: [facility] U#:[id number] AGE/SX: 57/F ROOM: RE12/12/[address]: Daphne Charles MD : 1965 BED: DIS: 12/12/2022 SPEC #: [id number] RECD: 12/12/22 18:05 STATUS: [place] REQ #: [id number] PEDRO: 12/12/22 14:[address]: Daphne Charles DEPT: [facility] Cytology RECD BY: Elmira Moore ENTERED: 12/12/22 18:06 SP TYPE: PAPHARMONY KHANNA DR: Jaylin Davis Tissues: 1 - BODY FLUID CYTO(NOT S/U/N/EM)[facility] Procedures: BODY FLUID CYTO(NOT SPU/UR/NIP/ENDOM)[facility] SILVER STAIN Comments: [id number] (TV = 10 ml, SENT FRESH) (REFRIGERATED)
[2022-12-12] MEDS: fentaNYL 100 MCG/2 ML VIAL IVP (15:08)
--- NOTE | 2022-12-12 15:23 | W.ANESPOSTOP ---
Postoperative Evaluation Date, Time and Location Date Performed: 12/12/22 Time Performed: 15:23 Patient Location: PACU Vital Signs Most Recent Imported Vital Signs: Most Recent Vital Signs Temp Pulse Resp BP Pulse Ox 36.7 C 74 21 103/63 96 12/12/22 15:20 12/12/22 15:20 12/12/22 15:20 12/12/22 15:20 12/12/22 15:20 Pain Score Most Recent Pain Score: Most Recent Pain Score Pain Level 4 12/12/22 15:20 Assessment Mental Status: Awake (Alert & Oriented to Patient Baseline) Airway and Respiratory Function: Patent airway with normal (patient baseline) respiratory exam Cardiovascular Function: Hemodynamically Stable Hydration Status: Adequately Hydrated Nausea & Vomiting: No Nausea or Vomiting Pain: Pain is tolerable per patient Peripheral Nerve Block: Patient did not receive a nerve block
[2022-12-14 08:43] LABS: Lymphocytes Fluid Relative 18 %; Mono/Macrophage Fluid Relative 80 %; Neutrophils Fluid Relative 2 %
[2022-12-14 08:44] LABS: Other Cells Fluid Relative See Comments %
[2022-12-14 10:25] LABS: Gram Smear Result Neutrophils Present
[2023-01-10 11:22] LABS: Fungus Smear No Fungi Seen
[2023-01-10 11:23] LABS: Fungus Smear No Fungi Seen
== END 2022-12-12 16:37 | disposition home or self-care (01) ==
PROVIDERS: PCP Nurse Practitioner Family; Visit Provider Student in an Organized Health Care Education/Training Program
PROC: 0BJ08ZZ Inspection of Tracheobronchial Tree, Via Natural or Artificial Opening Endoscopic (ICD-10-PCS; CPT 31622; principal; 2022-12-12 13:30)
DX: J90 Pleural effusion, not elsewhere classified (principal); Z79.899 Other long term (current) drug therapy; R06.02 Shortness of breath
CPT/HCPCS: 31624; 80162; 87070; 87102; 87116; 87205; 87206; 88104; 88312; J1100; J2001; J2405; J3010

== ENCOUNTER → 2022-12-27 13:50 | Outpatient (CLI) | payer BC, SELFPAY ==
--- NOTE | 2022-12-27 13:11 | DI.RAD_ITS ---
Exam(s) XR CHEST 2V PA LATERAL EXAM: XR CHEST 2V PA LATERAL CLINICAL HISTORY: SOB-R06.02, PLEURAL EFFUSION-J90, PNEUMONIA-J18.9 TECHNIQUE: 2D digital imaging was performed of the chest. Two images were obtained. PA and lateral views were obtained. COMPARISON: CR XR CHEST 2V PA LATERAL from 11/22/2022 FINDINGS: MEDIASTINUM: Normal. HEART: Normal. PULMONARY VASCULATURE: Normal. LUNGS: No focal consolidating infiltrates. Linear scarring or atelectasis in the left lung base. PLEURAL SPACE: No pleural effusion or pneumothorax. BONE:Within normal limits for the patient's age. OTHER FINDINGS:Normal. IMPRESSION: No acute pulmonary findings. DATA REPOSITORY: RADIATION DOSE DELIVERED:
== END ==
PROVIDERS: PCP Nurse Practitioner Family; Visit Provider Physician Assistant Surgical
DX: J18.9 Pneumonia, unspecified organism (principal); J90 Pleural effusion, not elsewhere classified; R06.02 Shortness of breath
CPT/HCPCS: 71046

== ENCOUNTER → 2023-01-13 00:34 | Outpatient (CLI) | payer BC, SELFPAY ==
--- NOTE | 2023-01-13 10:53 | DI.RAD_ITS ---
Exam(s) XR THORACIC SPINE COMPLETE EXAM: XR THORACIC SPINE COMPLETE CLINICAL HISTORY: rib pain, pre-pain consultation,pleurodynia,r07.81. TECHNIQUE: 2D digital imaging was performed. Three views. COMPARISON: CR XR CHEST 2V PA LATERAL from 12/27/2022 FINDINGS: BONES: There is no fracture or destructive lesion. The vertebral bodies and posterior elements are un remarkable. ALIGNMENT: Within normal limits. DISKS: Small endplate osteophytes. Minimal disc space narrowing lower thoracic levels. SOFT TISSUE: Visualized lungs show an area of linear atelectasis in the lingula. IMPRESSION: mild degenerative changes. DATA REPOSITORY: RADIATION DOSE DELIVERED:
== END ==
PROVIDERS: PCP Nurse Practitioner Family; Visit Provider Student in an Organized Health Care Education/Training Program
DX: R07.81 Pleurodynia (principal)
CPT/HCPCS: 72072

== ENCOUNTER → 2023-01-27 02:41 | Outpatient (CLI) | payer BC, SELFPAY ==
--- NOTE | 2023-01-27 07:15 | DI.MRI_ITS ---
Exam(s) MR THORACIC SPINE WO EXAM: MR THORACIC SPINE WO CLINICAL HISTORY: T4 radiculopathy vs Zoster sine herpete,m54.14. TECHNIQUE: Multiplanar multisequence MRI of the Thoracic spine was performed. CONTRAST MATERIAL: None COMPARISON: CR XR THORACIC SPINE COMPLETE from 01/13/2023 FINDINGS: Bones: The vertebral body heights are well maintained. Alignment is satisfactory. The signal characte ristics are unremarkable. Cord: The thoracic cord is normal size and signal intensity. No intrinsic cord lesion is present. Discs: Mild endplate osteophytes at T11-12 and T12-L1 no disc herniation is seen at any level. Soft tissues: Normal. IMPRESSION: Mild degenerative disc changes lower thoracic spine. DATA REPOSITORY:
== END ==
PROVIDERS: PCP Nurse Practitioner Family; Visit Provider Preventive Medicine Occupational Medicine
DX: M51.34 Other intervertebral disc degeneration, thoracic region (principal)
CPT/HCPCS: 72146

== ENCOUNTER → 2023-02-03 00:31 | Outpatient (CLI) | payer BC, SELFPAY ==
--- NOTE | 2023-02-03 08:00 | DI.US_ITS ---
APPROVED REPORT EXAM: Comprehensive 2D, Doppler, and color-flow Echocardiogram Patient Location: Out-Patient Balance Wheel Hand Filer: Juan Jose Tam RDCS (AE) Indications: dyspnea, sob Other Information Study Quality: Fair Conclusion The left ventricular wall thickness and chamber size. Ejection fraction is 55%. Wall motion is norm al Normal right ventricular size and systolic function Both atria are normal in size There is no structural or hemodynamically significant valvular disease Estimated right ventricular systolic pressure is 32 mmHg Wall motion Left Ventricle The left ventricle is normal size. The left ventricular systolic function is normal. The left ventric ular ejection fraction is within the normal range. There is normal left ventricular wall thickness. T here is normal LV segmental wall motion. There is no ventricular septal defect visualized. LVEF is 55 %. Right Ventricle The right ventricle is normal size. The right ventricular systolic function is normal. The RVSP is 32 .1 mmHg. Atria The left atrium size is normal. The right atrium size is normal. The interatrial septum is intact wit h no evidence for an atrial septal defect. Aortic Valve Aortic valve is probably trileaflet. There is no aortic valvular stenosis. No aortic regurgitation i s present. Mitral Valve The mitral valve is normal in structure. No evidence of mitral valve stenosis. There is no mitral dilia ve regurgitation noted. Tricuspid Valve The tricuspid valve is normal in structure. There is no tricuspid valve stenosis. Mild tricuspid regu rgitation. Pulmonic Valve The pulmonary valve is normal in structure. There is no pulmonic valvular stenosis. There is no pulmo kennedy valvular regurgitation. Great Vessels The aortic root is normal in size. Ascending aorta is not well visualized. Aortic arch is normal in c aliber. IVC is normal in size and collapses >50% with inspiration. Pericardium There is no pericardial effusion. 2D Dimensions IVSD d PLAX 0.69 cm F: 0.6-1.0 Ao Root d 2.06 cm F: 2.7 - 3.3 LVPW d PLAX 0.66 cm F: 0.6 - 1.0 LVID d PLAX 4.03 cm F: 3.8 - 5.2 LVDs 1.82 cm F: 2.2 - 3.5 LV EF Teichholz 85.9 % FS 54.71 % LV EDV (Teich) 71.2 mL LV ESV (Teich) 10.1 mL Stroke Vol Index (Teich) 35.54 Auto EF LV EDV A4C 72.3 mL LV EDV A2C 76.7 mL LV EDV BP LV ESV A4C 33.6 mL LV ESV A2C 34.2 mL LV ESV BP LVEF(%) A4C 53.6 % LVEF(%) A2C 55.4 % LVEF(%) BP LV SV A4C 38.8 ml LV SV A2C 42.5 ml LV SV BP LV CO A4C 3.8 L/min LV CO A2C 4.3 L/min LV CO BP HR A4C 96.78 BPM HR A2C 101.71 BPM LV EDV Index (BP) LA Volume LA Length A4C 4.4 cm LA Length A2C LA Area A4C s 7.18 cm2 LA Area A2C s LA Vol A4C A-L 9.90 mL LA Vol A2C A-L LA Vol Biplane A-L LA Vol A4C MOD 9.4 mL LA Vol A2C MOD LA Vol BP MOD RA Volume RA Area A4C 7.7 cm2 RA ESV A4C (A-L) 15.4mL RA Vol/BSA A4C A-L RA Length A4C 3.2 cm RA ESV A4C (MOD) 13.1mL LV Diastology MV E' medial 0.089 (>0.07 m/s) MV E Vmax 0.68 (0.4-1.3 m/s) MV E/E' MED 7.57 (<14) MV A Vmax 0.95 (0.4-1.3 m/s) MV E' lateral 0.097 (>0.1 m/s) E/A Ratio 0.7 MV E/E' LAT 6.94 (<14) MV E' Average 0.093 m/s MV E/E'(average) 7.24 Aortic Valve AoV Vmax 1.96 m/s LVOT Vmax 1.48 m/s AoV Peak Grad 17.1 mmHg LVOT Peak Grad 8.8 mmHg AoV Area (Vmax) 1.50 cm2 LVOT VTI 0.276 m AoV VTI 0.397 m LVOT Mean Grad 4.1 mmHg AoV Mean J Carlos. 1.37 m/s LVOT SV 54.79 mL AoV Mean Grad 8.7 mmHg LVOT Diam s 1.55 cm AoV Area (VTI) 1.38 cm2 Velocity Ratio 0.76 Mitral Valve MV DT 183 (160-240 msec) Pulmonary Valve PV Vmax 1.20 (0.5-1.5 m/s) RVOT Vmax 0.96 m/s PV Peak Grad 5.8 mmHg RVOT Peak Gr. 3.7 mmHg PV Mean J Carlos 0.81 m/s RVOT VTI 0.171 m PV Mean Grad 3.0 mmHg RVOT Mean Gr. 2.0 mmHg Tricuspid Valve RA Pressure 3.00 mmHg TR Vmax 2.70 m/s TR Peak Grad 29.1 mmHg RVSP (TR) 32.1 mmHg
== END ==
PROVIDERS: PCP Nurse Practitioner Family; Visit Provider Student in an Organized Health Care Education/Training Program
DX: R06.02 Shortness of breath (principal)
CPT/HCPCS: 93306

== ENCOUNTER 2023-05-03 04:00 | Outpatient (CLI) | payer BC, SELFPAY ==
[2023-05-06 00:05] LABS: Nortriptyline 36 ng/mL (70-170)
== END 2023-05-03 04:01 | disposition home or self-care (01) ==
LOC: LBO 04:00
PROVIDERS: PCP Nurse Practitioner Family; Visit Provider Nurse Practitioner Family
DX: Z79.899 Other long term (current) drug therapy (principal); Z51.81 Encounter for therapeutic drug level monitoring; F32.89 Other specified depressive episodes
CPT/HCPCS: 36415; 80335

== ENCOUNTER → 2023-07-14 09:28 | Outpatient (CLI) | payer BC, SELFPAY ==
--- NOTE | 2023-07-14 13:13 | DI.RAD_ITS ---
Exam(s) XR CHEST 2V PA LATERAL EXAM: XR CHEST 2V PA LATERAL CLINICAL HISTORY: H/O PNEUMONIA,PLEURAL EFFUSION, NEW DYSPNEA ON EXERTION,R06.09 TECHNIQUE: 2D digital imaging was performed of the chest. Two images were obtained. PA and lateral views were obtained. COMPARISON: CR XR CHEST 2V PA LATERAL from 12/27/2022 FINDINGS: MEDIASTINUM: Normal. HEART: Normal. PULMONARY VASCULATURE: Normal. LUNGS: Mild atelectasis is seen in the left lung base. No focal consolidating infiltrates are seen. PLEURAL SPACE: No pleural effusion or pneumothorax. BONE:Within normal limits for the patient's age. OTHER FINDINGS:Normal. IMPRESSION: No acute pulmonary findings. DATA REPOSITORY: RADIATION DOSE DELIVERED:
== END ==
PROVIDERS: PCP Nurse Practitioner Family; Visit Provider Nurse Practitioner Family
DX: R06.09 Other forms of dyspnea (principal)
CPT/HCPCS: 71046

== ENCOUNTER 2023-08-03 05:18 | Emergency (ER) | payer BC, SELFPAY ==
[2023-08-03] VITALS (35 sets, daily range): BP systolic 116–173; BP diastolic 77–124; PULSE 88–110; RESP 8–36; TEMP 36.8; O2SAT 96–98
--- NOTE | 2023-08-03 05:15 | RT.EKG_ITS ---
APPROVED REPORT Exam: Resting ECG Reason for Exam: Chest pain Patient Location: E HR:106 bpm ECG Measurements Heart Rate 106 AXIS SD 145 P 24 QRSd 84 QRS 48 QT 323 T 31 QTc 429 Conclusion Sinus tachycardia...rate> 99 Physician: no stemi
--- NOTE | 2023-08-03 05:15 | DI.CT_ITS ---
Exam(s) CT CHEST PE CTA EXAM: CT CHEST PE CTA CLINICAL HISTORY: left chest pain and cough/fever, eval for PE pne. TECHNIQUE: Imaging Protocol: Axial CT angiography was performed with multi-slice acquisition and mu lti-planar and/or 3D reconstructions. CONTRAST MATERIAL: Intravenous: Omnipaque 350 contrast volume:70 mL COMPARISON: CT CT CHEST PE CTA from 08/02/[address] CHEST PE CTA from 10/30/[address] CHEST W from 11/01/[address] CHEST PE CTA from 12/05/[address] CHEST WO from 03/08/2023 FINDINGS: Tracheobronchial tree: Patent where visualized. Pulmonary parenchyma: Mild atelectatic changes are seen in the lung bases. Mild scarring is seen in the lingula. No architectural distortion. Pulmonary Arteries: No evidence of filling defect to suggest pulmonary emboli. Mediastinum and Connie: No dominant adenopathy or fluid collection. The esophagus is unremarkable. Visualized thyroid gland: There are tiny stable hypodensities in the thyroid gland. No follow-up is recommended. Pleura: No effusion or pneumothorax. Heart: The heart is not dilated. No coronary artery calcifications are seen. No pericardial effusion. Aorta: Thoracic aorta non-dilated. No evidence of dissection. Mild atherosclerotic calcification is p resent. Upper abdomen: Cholelithiasis. There is a stable left hepatic cyst. Soft tissues: Unremarkable. Bones: Within normal limits for the patient's age. IMPRESSION: 1. No evidence of pulmonary embolism, thoracic aortic dissection or aneurysm. 2. Stable findings in the chest and upper abdomen. 3. No acute pulmonary process. RADIATION DOSE DELIVERED: 501.85mGy.cm Total DLP DATA REPOSITORY: All CT scans at this facility are submitted to the National Radiology Data Registry (NRDR) Dose Index Registry (DIR) with the [employer] (ACR). RADIATION OPTIMIZATION: All CT scans at this facility use at least one of these dose optimization te chniques: automated exposure control; mA and/or kV adjustment per patient size (includes targeted exa ms where dose is matched to clinical indication); or iterative reconstruction.
[2023-08-03 05:39] LABS: BE (Venous) 1 mmol/L (-2-3); HCO3 (Venous) 25 mmol/L (23-28); O2 Sat (Venous) 86 %; TCO2 (Venous) 22 mmol/L (24-29); pCO2 (Venous) 36 mmHg (41-51); pH (Venous) 7.46 (7.31-7.41); pO2 (Venous) 46 mmHg
[2023-08-03 05:42] LABS: Abs Immature Grans 0.02 10^3/uL (0.0-0.06); Absolute Basophil Count 0.05 10^3/uL (0.0-0.2); Absolute Eosinophil Count 0.04 10^3/uL (0.0-0.7); Absolute Lymphocyte Count 1.87 10^3/uL (1.2-3.4); Absolute Monocyte Count 0.61 10^3/uL (0.1-0.8); Absolute Neutrophil Count 5.16 10^3/uL (1.2-6.7); Basophils % 0.6 %; Eosinophils % 0.5 %; HCT 47.9 % (36.0-46.0); HGB 15.7 g/dL (11.2-15.7); Immature Grans % 0.3 %; Lymphocytes % 24.1 %; MCH 28.6 pg (27.0-33.0); MCHC 32.8 % (32.0-36.0); MCV 87 fL (80-95); MPV 10.4 fL (8.0-11.0); Monocytes % 7.9 %; Neutrophils % 66.6 %; Platelet Count 187 10^3/uL (130-400); RBC 5.48 10^6/uL (3.93-5.22); RDW 12.4 % (11.7-14.6); RDW-SD 39.8 fL; WBC 7.75 10^3/uL (4.4-10.8)
[2023-08-03] MEDS: Lactated Ringers 1,000 ML 1000 ML IV (05:51)
[2023-08-03 05:57] LABS: INR 1.1 (0.9-1.1); PTT Activated 28.4 sec (23.6-32.8); Prothrombin Time 11.1 sec (9.1-11.1)
[2023-08-03 05:59] LABS: ALT 39 U/L (14-59); AST 23 U/L (15-37); Albumin 3.4 g/dL (3.4-5.0); Alkaline Phosphatase 93 U/L (46-116); Anion Gap 10.4 mmol/L (3-11); BUN 14 mg/dL (7-18); Bilirubin, Total 0.3 mg/dL (0.2-1.0); CO2 24.6 mmol/L (21.0-32.0); CREATININE 0.8 mg/dL (0.55-1.02); Calcium 8.6 mg/dL (8.5-10.1); Chloride 103 mmol/L (98-107); Estimated GFR 84.82 (mL/min/1.73m2); Glucose 137 mg/dL (74-106); Potassium 4.1 mmol/L (3.5-5.1); Sodium 138 mmol/L (136-145)
[2023-08-03 06:06] LABS: NT-proBNP 44 pg/mL (<300); Troponin I < 50 ng/L (< or =60)
--- NOTE | 2023-08-03 06:06 | ED.GENADUL_ITS ---
Discharge Plan Disposition Patient Disposition: Home Condition: Good Discharge Details Chief Complaint: RespSymp Clinical Impression: COVID-19 Primary Care Provider: Jaylin Davis ED Provider: Delano Fall Home Meds and New Rx's Prescriptions: No Action omeprazole 20 mg capsule,delayed release(DR/EC) 20 mg PO DAILY nortriptyline 10 mg capsule 20 mg PO QHS acetaminophen 500 mg capsule 500 mg PO Q6H PRN albuterol sulfate 90 mcg/actuation HFA aerosol inhaler 2 puff inhalation QID PRN (Reason: shortness of breath or wheezing) Qty: 8.5 6RF gabapentin 300 mg capsule 300 mg PO TID Patient Comments: TAKE ONE CAPSULE BY MOUTH THREE TIMES A DAY methylprednisolone 4 mg tablets,dose pack 4 mg PO DAILY Patient Comments: TAKE BY MOUTH DIRECTED FOLLOWING DIRECTIONS ON PACKAGE FOR 6 DAYS FOR PAIN lidocaine 5 % adhesive patch,medicated 1 patch topical DAILY Qty: 14 0RF Rx Instructions: leave on most painful area of your chest wall for up to 12 hrs Discharge Instructions Instructions: Viral Syndrome (ED) Additional Instructions: At this time your workup has returned reassuring. There is no signs of heart attack, large blood clot, or large pneumonia. You do have COVID-19, please take the COVID medication as directed. Take 800 mg (4x Capsules) every 12 hours for 5 days. If you notice any worsening of your symptoms, or any new symptoms such as vomiting, diarrhea, fever, chills, shortness of breath, chest pain, numbness, weakness, or fainting , please return immediately to the emergency department for reevaluation. Please follow up with your primary care provider as soon as possible for reassessment and reevaluation. As always, it was a pleasure participating in your medical care today. Referrals: Jaylin Davis [Primary Care Provider] - [facility] General Date/Time Provider Initiated Documentation: 08/03/23 05:21 . HPI Narrative: 57-year-old female with a past medical history of appendectomy, C- section, who had pneumonia and a pleural effusion about 5 months ago. At that time she was on a prednisone taper. She had been on nortriptyline for some time that had been seemingly helping her pleuritic components. Those have been mildly persistent ever since then, however she presents today for evaluation of shortness of breath. She has noted that over the last 3 to 4 days she has had mild upper respiratory congestion nasal discharge. This is worsened her shortness of breath. Pain in her left chest is slightly worse than normal as well. She does admit to mild fever and chills and difficulty breathing. No hemoptysis. She does have mild cough. She has also noticed that for the last 2 to 3 weeks she has been more short of breath with exertional activities. She denied any chest pain during these episodes though. She denies any recent long trips, surgeries or procedures. She denies any history of blood clot. She is not currently on any antibiotics. No other complaints at this time. Pain that is currently present is in her left chest to her left shoulder blade. No tearing or ripping sensation. Related Data Home Medications Medication Instructions Recorded Confirmed lidocaine 5 % topical patch 1 patch topical DAILY #14 ea 11/05/22 08/03/23 omeprazole 20 mg capsule,delayed 20 mg PO DAILY 01/09/23 08/03/23 release acetaminophen 500 mg capsule 500 mg PO Q6H PRN 01/18/23 08/03/23 albuterol sulfate 90 mcg/actuation 2 puff inhalation QID PRN 01/18/23 08/03/23 aerosol inhaler shortness of breath or wheezing #8.5 grams nortriptyline 10 mg capsule 20 mg PO QHS 03/17/23 08/03/23 gabapentin 300 mg capsule 300 mg PO TID 08/03/23 08/03/23 methylprednisolone 4 mg tablets in 4 mg PO DAILY 08/03/23 08/03/23 a dose pack Previous Rx's Medication Instructions Recorded lidocaine 5 % topical patch 1 patch topical DAILY #14 ea 11/05/22 albuterol sulfate 90 mcg/actuation 2 puff inhalation QID PRN 01/18/23 aerosol inhaler shortness of breath or wheezing #8.5 grams Allergies Allergy/AdvReac Type Severity Reaction Status Date / Time sulfamethoxazole Allergy Severe Anaphylaxsi Verified 08/03/23 05:30 [From Bactrim] s trimethoprim [From Bactrim] Allergy Severe Anaphylaxsi Verified 08/03/23 05:30 s General Stated Complaint: RespSymp NICK: 3 Review of Systems All systems reviewed & are unremarkable except as noted in HPI and below Exam Narrative Exam Narrative: 1.Const: Well-nourished, Well-developed, appearing stated age 2.Eyes: PERRL, no conjunctival injection, and symmetrical lids. 3.ENT: Atraumatic external nose and ears. Moist MM. Neck: Symmetric, trachea mid line, No thyromegaly. 4.CVS: +S1/S2, No murmurs or gallops. Peripheral pulses 2+ and equal in all extremities. Brisk capillary refill in all extremities. 5.RESP: Unlabored respiratory effort. Clear to auscultation bilaterally. No wheezes rales or rhonchi 6.GI: Soft, Nontender/Nondistended, No hepatosplenomegaly. No guarding or rebound. 7.MSK: Normocephalic/Atraumatic, Extremities w/o deformity or ttp No cyanosis or clubbing, Normal movement of all extremities, no calf tenderness. 8.Skin: Warm, Dry. No rashes or lesions. 9.Neuro: loom mechanic II-XII grossly intact. Sensation grossly intact, no focal neurologic deficits. 10.Psych: (AAO) x3. Appropriate mood and affect Course Vital Signs Vital signs: Vital Signs Temperature 36.8 C 08/03/23 05:21 Pulse 103 H 08/03/23 05:21 Respiratory Rate 16 08/03/23 05:21 Blood Pressure 173/79 H 08/03/23 05:21 Pulse Oximetry 96 08/03/23 05:21 Temperature 36.8 C 08/03/23 05:26 Temperature Source Temporal Artery Scan 08/03/23 05:26 Pulse 95 H 08/03/23 06:00 Pulse 96 H 08/03/23 06:01 Respiratory Rate 21 08/03/23 06:01 Respiratory Effort Labored 08/03/23 05:26 Respiratory Depth Normal 08/03/23 05:26 Blood Pressure 144/88 H 08/03/23 06:00 Blood Pressure Mean 108 08/03/23 06:00 Pulse Oximetry 96 08/03/23 05:21 Oxygen Delivery Method Room Air 08/03/23 05:21 Oxygen Flow Rate 0 08/03/23 05:21 Pain Level 10 08/03/23 05:21 Lab/Test Results Lab/Test Results: 08/03/23 05:45 Blood Blood Culture - Pending 08/03/23 05:40 Blood Blood Culture - Pending Laboratory Tests Range/Units 08/03/23 05:30 WBC (4.4-10.8) 10^3/uL 7.75 RBC (3.93-5.22) 10^6/uL 5.48 H Hgb (11.2-15.7) g/dL 15.7 Hct (36.0-46.0) % 47.9 H MCV (80-95) fL 87 MCH (27.0-33.0) pg 28.6 MCHC (32.0-36.0) % 32.8 RDW (11.7-14.6) % 12.4 Plt Count (130-400) 10^3/uL 187 MPV (8.0-11.0) fL 10.4 Immature Gran % % 0.3 Neutrophils % % 66.6 Lymphocytes % % 24.1 Monocytes % % 7.9 Eosinophils % % 0.5 Basophils % % 0.6 Nucleated RBC % (0.0-0.3) % 0.0 Absolute Neutrophils (1.2-6.7) 10^3/uL 5.16 Absolute Lymphocytes (1.2-3.4) 10^3/uL 1.87 Absolute Monocytes (0.1-0.8) 10^3/uL 0.61 Absolute Eosinophils (0.0-0.7) 10^3/uL 0.04 Absolute Basophils (0.0-0.2) 10^3/uL 0.05 PT (9.1-11.1) sec 11.1 INR (0.9-1.1) 1.1 APTT (23.6-32.8) sec 28.4 VBG pH (7.31-7.41) 7.46 H VBG pCO2 (41-51) mmHg 36 L VBG pO2 mmHg 46 VBG HCO3 (23-28) mmol/L 25 VBG Total CO2 (24-29) mmol/L 22 L VBG O2 Saturation % 86 VBG Base Excess (-2-3) mmol/L 1 Sodium (136-145) mmol/L 138 Potassium (3.5-5.1) mmol/L 4.1 Chloride (98-107) mmol/L 103 Carbon Dioxide (21.0-32.0) mmol/L 24.6 Anion Gap (3-11) mmol/L 10.4 BUN (7-18) mg/dL 14 Creatinine (0.55-1.02) mg/dL 0.8 Est GFR (CKD-EPI 2020) (mL/min/1.73m2) 84.82 Glucose (74-106) mg/dL 137 H Calcium (8.5-10.1) mg/dL 8.6 Total Bilirubin (0.2-1.0) mg/dL 0.3 AST (15-37) U/L 23 ALT (14-59) U/L 39 Alkaline Phosphatase (46-116) U/L 93 Total Protein (6.4-8.2) g/dL 8.0 Albumin (3.4-5.0) g/dL 3.4 Medical Decision Making 57-year-old female with a past medical history of appendectomy, C- section, who had pneumonia and a pleural effusion about 5 months ago. At that time she was on a prednisone taper. She had been on nortriptyline for some time that had been seemingly helping her pleuritic components. Those have been mildly persistent ever since then, however she presents today for evaluation of shortness of breath. She has noted that over the last 3 to 4 days she has had mild upper respiratory congestion nasal discharge. This is worsened her shortness of breath. Pain in her left chest is slightly worse than normal as well. She does admit to mild fever and chills and difficulty breathing. No hemoptysis. She does have mild cough. She has also noticed that for the last 2 to 3 weeks she has been more short of breath with exertional activities. She denied any chest pain during these episodes though. She denies any recent long trips, surgeries or procedures. She denies any history of blood clot. She is not currently on any antibiotics. No other complaints at this time. Pain that is currently present is in her left chest to her left shoulder blade. No tearing or ripping sensation. Exam demonstrates well-appearing female, she is slightly tachypneic, but no hypoxemia. Lungs are clear. Differential includes return of pneumonia, PE, cardiac etiology less likely. Symptoms appear inconsistent with asthma or COPD as she has no wheezes or hypoxemia. We will evaluate for these concerning etiologies, get a CTA, monitor closely and reassess. 7:18 AM Laboratory workup has returned unremarkable, no white count bandemia or left shift. VBG is stable, electrolytes normal, renal function normal, no transaminitis, troponin normal, proBNP normal, COVID flu and RSV test is returned positive for COVID. Will start the patient on legevrio here. Still pending CT read. On personal review there is mild atelectasis, but no evidence of severe pneumonia or large saddle PE that I can see. Patient remains hemodynamically stable. I expect discharge if CT scan returns unremarkable. Patient will be signed out to my colleague Dr. Siegel for follow-up on imaging. Quality:[facility] Health Related Social Needs: No Data to Display [facility] All Active Problems (Updated 08/03/23 @ 07:20 by Delano Fall DO) COVID-19 (Acute) Thoracic radiculopathy (Acute) Shingles (Acute) Rib pain (Acute) Organizing pneumonia (Acute) C. difficile colitis (Acute) Pleurisy (Acute) Pneumonia (Acute) Shortness of breath (Acute) Pleural effusion on left (Acute) COVID-19 (Acute) Encounter for re-check of laceration wound (Acute) Laceration (Acute) Bronchitis (Acute) Patellar tendonitis of right knee (Chronic) Significant improvement of right patellar tendinitis. Patient is advised to stay away from Cipro or other similar antibiotics because they can predispose to inflammation in the tendons. She also understands that injection of corticosteroid into the patellar tendon is fraught with complications. Follow-up with me as needed Medical History Right shoulder strain 2006 Lumbar strain multiple events:2009,2013,2015,04/2017 Depression Perimenopause Surgical History History of bladder surgery Hx of appendectomy History of x2 Fasciotomy, Foot 2008 for plantar fascitis Family History Father Colon cancer GI bleed. 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
[2023-08-03] MEDS: Omnipaque 350 MG/ML 100 ML BTL IJ (06:10)
[2023-08-03] MEDS: Normal Saline - Diluent 50 ML VIAL IJ (06:12)
[2023-08-03] MEDS: Normal Saline Flush 10 ML SYR IVP (06:13)
[2023-08-03 06:42] LABS: Influenza A PCR Negative (Negative); Influenza B PCR Negative (Negative); RSV PCR Negative (Negative)
[2023-08-03 06:48] LABS: Source Nasopharynx
[2023-08-03 06:49] LABS: COVID-19 PCR Positive (Negative)
--- NOTE | 2023-08-03 08:01 | ED.PROG_ITS ---
Date of service: 08/03/23 Time of Service: 08:01 Medical Decision Making This received signout on this 57-year-old female in the emergency department in the setting of left-sided chest pain. She was found to be COVID-positive. She has also had a reassuring evaluation. She is pending a CT angiogram of her [address]. If this is negative for any acute pathology patient has been written for contingent discharge instructions. 8:18 AM I reviewed this patient's CTA of her chest which showed no acute abnormalities. She was found to have left hepatic lobe hypodensity and multiple thyroid nodules about which I made her aware. I have asked health air conditioning unit tester Nikki to have the patient seen within the next month she will likely benefit from an MRI of her abdomen and an ultrasound of her thyroid. Quality:SDOH Health Related Social Needs: No Data to Display Discharge Plan Disposition Patient Disposition: Home Condition: Good Discharge Details Clinical Impression: COVID-19, Multiple thyroid nodules, Nodule on liver Primary Care Provider: Jaylin Davis ED Provider: Delano Fall Home Meds and New Rx's Prescriptions: Continued omeprazole 20 mg capsule,delayed release(DR/EC) 20 mg PO DAILY nortriptyline 10 mg capsule 20 mg PO QHS acetaminophen 500 mg capsule 500 mg PO Q6H PRN albuterol sulfate 90 mcg/actuation HFA aerosol inhaler 2 puff inhalation QID PRN (Reason: shortness of breath or wheezing) Qty: 8.5 6RF gabapentin 300 mg capsule 300 mg PO TID Patient Comments: TAKE ONE CAPSULE BY MOUTH THREE TIMES A DAY methylprednisolone 4 mg tablets,dose pack 4 mg PO DAILY Patient Comments: TAKE BY MOUTH DIRECTED FOLLOWING DIRECTIONS ON PACKAGE FOR 6 DAYS FOR PAIN lidocaine 5 % adhesive patch,medicated 1 patch topical DAILY Qty: 14 0RF Rx Instructions: leave on most painful area of your chest wall for up to 12 hrs Discharge Instructions Instructions: Viral Syndrome (ED) Additional Instructions: At this time your workup has returned reassuring. There is no signs of heart attack, large blood clot, or large pneumonia. You do have COVID-19, please take the COVID medication as directed. Take 800 mg (4x Capsules) every 12 hours for 5 days. If you notice any worsening of your symptoms, or any new symptoms such as vomiting, diarrhea, fever, chills, shortness of breath, chest pain, numbness, weakness, or fainting , please return immediately to the emergency department for reevaluation. Please follow up with your primary care provider as soon as possible for reassessment and reevaluation. As always, it was a pleasure participating in your medical care today. You are also found to have multiple small thyroid nodules each measuring 1.1 cm. You are also found to have a nodule liver for which you will likely benefit from an MRI of your abdomen. Please follow-up with your primary care provider as you will also likely benefit from ultrasound of your thyroid. Referrals: Jaylin Davis [Primary Care Provider] - Discharge Data Discharge Date/Time-TO BE ENTERED AT DEPARTURE: 08/03/23 08:32
--- NOTE | 2023-08-03 08:05 | DI.VRAD_ITS ---
PROCEDURE INFORMATION: Exam: CTA Chest With Contrast Exam date and time: 08/03/2023 6:18 AM Age: 57 years old Clinical indication: Cough and fever; Left-sided; Patient HX: Left chest pain and cough/fever, eval for pe \T\ pne, back pain below scapula TECHNIQUE: Imaging protocol: Computed tomographic angiography of the chest with contrast. Exam focused on the arteries. 3D rendering (Not supervised by radiologist): MIP and/or 3D reconstructed images were created by the technologist. Radiation optimization: All CT scans at this facility use at least one of these dose optimization techniques: automated exposure control; mA and/or kV adjustment per patient size (includes targeted exams where dose is matched to clinical indication); or iterative reconstruction. Contrast material: OMNIPAQUE 350; Contrast volume: 70 ml; Contrast route: INTRAVENOUS (IV); COMPARISON: CT CHEST PE CTA 12/05/2022 7:46 PM FINDINGS: Pulmonary arteries: No pulmonary embolus is appreciated. Aorta: Arterial calcifications. No thoracic aortic aneurysm seen. Thyroid: 1.1 cm left thyroid nodule. 1.1 cm right thyroid nodule. Consider follow-up. Lungs: Dependent changes in the lungs. Pleural spaces: No pleural effusion. Heart: No pericardial effusion. Lymph nodes: Mild mediastinal and bilateral hilar lymphadenopathy. Liver: 1.6 cm hypodensity in the left hepatic lobe, indeterminate on this examination. Consider follow-up. Gallbladder and bile ducts: Cholelithiasis. Adrenal glands: Adrenal thickening. Bones/joints: No acute pertinent abnormality seen. Soft tissues: No acute pertinent abnormality seen. IMPRESSION: 1. No acute findings to explain reported symptoms. 2. Nonacute findings as outlined above. Dictated and Authenticated by: Sonja Sanders MD. Ordering:RICK Wick MD
--- NOTE | 2023-08-03 09:25 | NUR.NOTE ---
Referral faxed to PCP for multiple thyroid nodules, within 1 month. Nursing Note:
--- NOTE | 2023-08-03 13:26 | NUR.NOTE ---
Patient called regarding chronic sharp pain in her back that she feels is being aggravated by her dx of COVID. Dr Siegel involved in the conversation who suggested tylenol and ibuprofen. pt understands this treatment plan and was also advised that she can return for re-evaluation at any time if she is concerned. Nursing Note:
--- NOTE | 2023-08-04 08:19 | W.EDPROG ---
Date of service: 08/04/23 Time of Service: 08:20 Medical Decision Making Quality:SDOH Health Related Social Needs: No Data to Display Narrative Patient was contacted regarding 1 positive blood culture tube for gram-positive cocci in is recommended that she return to the emergency department for reassessment. She states that she will present later today. Discharge Plan Disposition Patient Disposition: Home Condition: Good Discharge Details Clinical Impression: COVID-19, Multiple thyroid nodules, Nodule on liver Primary Care Provider: Jaylin Davis ED Provider: Delano Fall Home Meds and New Rx's Prescriptions: Continued omeprazole 20 mg capsule,delayed release(DR/EC) 20 mg PO DAILY nortriptyline 10 mg capsule 20 mg PO QHS acetaminophen 500 mg capsule 500 mg PO Q6H PRN albuterol sulfate 90 mcg/actuation HFA aerosol inhaler 2 puff inhalation QID PRN (Reason: shortness of breath or wheezing) Qty: 8.5 6RF gabapentin 300 mg capsule 300 mg PO TID Patient Comments: TAKE ONE CAPSULE BY MOUTH THREE TIMES A DAY methylprednisolone 4 mg tablets,dose pack 4 mg PO DAILY Patient Comments: TAKE BY MOUTH DIRECTED FOLLOWING DIRECTIONS ON PACKAGE FOR 6 DAYS FOR PAIN lidocaine 5 % adhesive patch,medicated 1 patch topical DAILY Qty: 14 0RF Rx Instructions: leave on most painful area of your chest wall for up to 12 hrs Discharge Instructions Instructions: Viral Syndrome (ED) Additional Instructions: At this time your workup has returned reassuring. There is no signs of heart attack, large blood clot, or large pneumonia. You do have COVID-19, please take the COVID medication as directed. Take 800 mg (4x Capsules) every 12 hours for 5 days. If you notice any worsening of your symptoms, or any new symptoms such as vomiting, diarrhea, fever, chills, shortness of breath, chest pain, numbness, weakness, or fainting , please return immediately to the emergency department for reevaluation. Please follow up with your primary care provider as soon as possible for reassessment and reevaluation. As always, it was a pleasure participating in your medical care today. You are also found to have multiple small thyroid nodules each measuring 1.1 cm. You are also found to have a nodule liver for which you will likely benefit from an MRI of your abdomen. Please follow-up with your primary care provider as you will also likely benefit from ultrasound of your thyroid. Referrals: Jaylin Davis [Primary Care Provider] - Discharge Data Discharge Date/Time-TO BE ENTERED AT DEPARTURE: 08/03/23 08:32
--- NOTE | 2023-08-04 08:25 | ED.PROG_ITS ---
Date of service: 08/04/23 Time of Service: 08:25 Medical Decision Making Patient was notified regarding 1 positive blood culture, I suspect likely contaminant after calling the lab that the remainder of blood cultures are negative It is recommended that patient return to the emergency department for repeat draw of blood cultures and reassessment of labs and exam. Patient will return at her earliest ability for assessment. Quality:[facility] Health Related Social Needs: No Data to Display Discharge Plan Disposition Patient Disposition: Home Condition: Good Discharge Details Clinical Impression: COVID-19, Multiple thyroid nodules, Nodule on liver Primary Care Provider: Jaylin Davis ED Provider: Delano Fall Home Meds and New Rx's Prescriptions: Continued omeprazole 20 mg capsule,delayed release(DR/EC) 20 mg PO DAILY nortriptyline 10 mg capsule 20 mg PO QHS acetaminophen 500 mg capsule 500 mg PO Q6H PRN albuterol sulfate 90 mcg/actuation HFA aerosol inhaler 2 puff inhalation QID PRN (Reason: shortness of breath or wheezing) Qty: 8.5 6RF gabapentin 300 mg capsule 300 mg PO TID Patient Comments: TAKE ONE CAPSULE BY MOUTH THREE TIMES A DAY methylprednisolone 4 mg tablets,dose pack 4 mg PO DAILY Patient Comments: TAKE BY MOUTH DIRECTED FOLLOWING DIRECTIONS ON PACKAGE FOR 6 DAYS FOR PAIN lidocaine 5 % adhesive patch,medicated 1 patch topical DAILY Qty: 14 0RF Rx Instructions: leave on most painful area of your chest wall for up to 12 hrs Discharge Instructions Instructions: Viral Syndrome (ED) Additional Instructions: At this time your workup has returned reassuring. There is no signs of heart attack, large blood clot, or large pneumonia. You do have COVID-19, please take the COVID medication as directed. Take 800 mg (4x Capsules) every 12 hours for 5 days. If you notice any worsening of your symptoms, or any new symptoms such as vomiting, diarrhea, fever, chills, shortness of breath, chest pain, numbness, weakness, or fainting , please return immediately to the emergency department for reevaluation. Please follow up with your primary care provider as soon as possible for reassessment and reevaluation. As always, it was a pleasure participating in your medical care today. You are also found to have multiple small thyroid nodules each measuring 1.1 cm. You are also found to have a nodule liver for which you will likely benefit from an MRI of your abdomen. Please follow-up with your primary care provider as you will also likely benefit from ultrasound of your thyroid. Referrals: Jaylin Davis [Primary Care Provider] - Discharge Data Discharge Date/Time-TO BE ENTERED AT DEPARTURE: 08/03/23 08:32
== END 2023-08-03 08:32 | disposition home or self-care (01) ==
PROVIDERS: Emergency Provider Student in an Organized Health Care Education/Training Program; PCP Nurse Practitioner Family
DX: U07.1 COVID-19 (principal); R07.9 Chest pain, unspecified; K76.89 Other specified diseases of liver; E04.2 Nontoxic multinodular goiter; Z79.899 Other long term (current) drug therapy
CPT/HCPCS: 00123; 36415; 71275; 80053; 82805; 87040; 87077; 87637; 93005; 96360; 96361; 99285; 83880; 84484; 85025; 85610; 85730; 87186; 93010; 99284; J3490

== ENCOUNTER 2023-08-04 10:23 | Emergency (ER) | payer BC, SELFPAY ==
[2023-08-04 10:37] VITALS: BP 130/72; PULSE 87; RESP 16; TEMP 36.5; O2SAT 97
[2023-08-04 11:26] LABS: Lactate 1.7 mmol/L (0.6-1.4)
[2023-08-04 11:29] LABS: Abs Immature Grans 0.01 10^3/uL (0.0-0.06); Absolute Basophil Count 0.05 10^3/uL (0.0-0.2); Absolute Eosinophil Count 0.04 10^3/uL (0.0-0.7); Absolute Lymphocyte Count 1.29 10^3/uL (1.2-3.4); Absolute Monocyte Count 0.35 10^3/uL (0.1-0.8); Absolute Neutrophil Count 3.84 10^3/uL (1.2-6.7); Basophils % 0.9 %; Eosinophils % 0.7 %; HCT 46.8 % (36.0-46.0); HGB 15.1 g/dL (11.2-15.7); Immature Grans % 0.2 %; Lymphocytes % 23.1 %; MCH 28.1 pg (27.0-33.0); MCHC 32.3 % (32.0-36.0); MCV 87 fL (80-95); MPV 10.4 fL (8.0-11.0); Monocytes % 6.3 %; Neutrophils % 68.8 %; Platelet Count 190 10^3/uL (130-400); RBC 5.37 10^6/uL (3.93-5.22); RDW 12.1 % (11.7-14.6); WBC 5.58 10^3/uL (4.4-10.8)
[2023-08-04 11:44] LABS: ALT 32 U/L (14-59); AST 17 U/L (15-37); Albumin 3.1 g/dL (3.4-5.0); Alkaline Phosphatase 89 U/L (46-116); Anion Gap 9.6 mmol/L (3-11); BUN 19 mg/dL (7-18); Bilirubin, Total 0.2 mg/dL (0.2-1.0); CO2 26.4 mmol/L (21.0-32.0); CREATININE 0.9 mg/dL (0.55-1.02); Calcium 8.8 mg/dL (8.5-10.1); Chloride 103 mmol/L (98-107); Estimated GFR 73.64 (mL/min/1.73m2); Glucose 159 mg/dL (74-106); Potassium 3.5 mmol/L (3.5-5.1); Sodium 139 mmol/L (136-145); Total Protein 7.5 g/dL (6.4-8.2)
[2023-08-04 12:17] VITALS: BP 141/90; PULSE 82; RESP 16; O2SAT 98
--- NOTE | 2023-08-04 13:44 | ED.GENADUL_ITS ---
Discharge Plan Disposition Patient Disposition: Home Condition: Stable Discharge Details Clinical Impression: Positive blood culture, COVID-19 Primary Care Provider: Jaylin Davis ED Provider: Elmira Prasad Home Meds and New Rx's Prescriptions: Continued omeprazole 20 mg capsule,delayed release(DR/EC) 20 mg PO DAILY nortriptyline 10 mg capsule 20 mg PO QHS acetaminophen 500 mg capsule 500 mg PO Q6H PRN albuterol sulfate 90 mcg/actuation HFA aerosol inhaler 2 puff inhalation QID PRN (Reason: shortness of breath or wheezing) Qty: 8.5 6RF gabapentin 300 mg capsule 300 mg PO TID Patient Comments: TAKE ONE CAPSULE BY MOUTH THREE TIMES A DAY methylprednisolone 4 mg tablets,dose pack 4 mg PO DAILY Patient Comments: TAKE BY MOUTH DIRECTED FOLLOWING DIRECTIONS ON PACKAGE FOR 6 DAYS FOR PAIN benzonatate 100 mg capsule 100 mg PO TID PRN Patient Comments: TAKE 1 CAPSULE BY MOUTH 3 TIMES DAILY DIRECTED lidocaine 5 % adhesive patch,medicated 1 patch topical DAILY Qty: 14 0RF Rx Instructions: leave on most painful area of your chest wall for up to 12 hrs Discharge Instructions Instructions: Viral Syndrome (ED) Additional Instructions: You had 1 positive blood culture which is likely a contaminant, we have redrawn your blood cultures Continue with supportive care at home If you develop recurrent fever or worsening symptoms please return immediately for reassessment Recheck with your primary care physician in 48 hours recommended Referrals: Jaylin Davis [Primary Care Provider] - 1 day HPI General Date/Time Provider Initiated Documentation: 08/04/23 10:34 . HPI Narrative: This 57-year-old female returns to the emergency department secondary to report of positive single blood culture. She came in for assessment several days ago and was diagnosed with COVID-19. She had blood cultures drawn at the time. She is overall feeling symptomatic improvement and declines any fever or chills at home. She has residual upper respiratory symptoms. Related Data Home Medications Medication Instructions Recorded Confirmed lidocaine 5 % topical patch 1 patch topical DAILY #14 ea 11/05/22 08/04/23 omeprazole 20 mg capsule,delayed 20 mg PO DAILY 01/09/23 08/04/23 release acetaminophen 500 mg capsule 500 mg PO Q6H PRN 01/18/23 08/04/23 albuterol sulfate 90 mcg/actuation 2 puff inhalation QID PRN 01/18/23 08/04/23 aerosol inhaler shortness of breath or wheezing #8.5 grams nortriptyline 10 mg capsule 20 mg PO QHS 03/17/23 08/04/23 gabapentin 300 mg capsule 300 mg PO TID 08/03/23 08/04/23 methylprednisolone 4 mg tablets in 4 mg PO DAILY 08/03/23 08/04/23 a dose pack benzonatate 100 mg capsule 100 mg PO TID PRN 08/04/23 08/04/23 Previous Rx's Medication Instructions Recorded lidocaine 5 % topical patch 1 patch topical DAILY #14 ea 11/05/22 albuterol sulfate 90 mcg/actuation 2 puff inhalation QID PRN 01/18/23 aerosol inhaler shortness of breath or wheezing #8.5 grams Allergies Allergy/AdvReac Type Severity Reaction Status Date / Time sulfamethoxazole Allergy Severe Anaphylaxsi Verified 08/04/23 10:37 [From Bactrim] s trimethoprim [From Bactrim] Allergy Severe Anaphylaxsi Verified 08/04/23 10:37 s General Stated Complaint: Recheck NICK: 3 Exam Narrative Exam Narrative: Alert and oriented 57-year-old female who is in no acute respiratory distress, pupils equal round reactive to light and accommodation, cardiac rate rhythm regular Course Vital Signs Vital signs: Vital Signs Temperature 36.5 C 08/04/23 10:37 Pulse 87 08/04/23 10:37 Respiratory Rate 16 08/04/23 10:37 Blood Pressure 130/72 08/04/23 10:37 Pulse Oximetry 97 08/04/23 10:37 Temperature 36.5 C 08/04/23 10:37 Temperature Source Temporal Artery Scan 08/04/23 10:37 Pulse 82 08/04/23 12:17 Respiratory Rate 16 08/04/23 12:17 Respiratory Effort Normal, Non-Labored 08/04/23 10:39 Blood Pressure 141/90 H 08/04/23 12:17 Blood Pressure Position Sitting 08/04/23 10:37 Pulse Oximetry 98 08/04/23 12:17 Oxygen Delivery Method Room Air 08/04/23 12:17 Oxygen Flow Rate 0 08/04/23 12:17 Pain Level 8 08/04/23 12:13 Lab/Test Results Lab/Test Results: 08/04/23 11:04 Blood Blood Culture - Pending 08/04/23 11:19 Blood Blood Culture - Pending Laboratory Tests Range/Units 08/04/23 11:19 WBC (4.4-10.8) 10^3/uL 5.58 RBC (3.93-5.22) 10^6/uL 5.37 H Hgb (11.2-15.7) g/dL 15.1 Hct (36.0-46.0) % 46.8 H MCV (80-95) fL 87 MCH (27.0-33.0) pg 28.1 MCHC (32.0-36.0) % 32.3 RDW (11.7-14.6) % 12.1 Plt Count (130-400) 10^3/uL 190 MPV (8.0-11.0) fL 10.4 Immature Gran % % 0.2 Neutrophils % % 68.8 Lymphocytes % % 23.1 Monocytes % % 6.3 Eosinophils % % 0.7 Basophils % % 0.9 Nucleated RBC % (0.0-0.3) % 0.0 Absolute Neutrophils (1.2-6.7) 10^3/uL 3.84 Absolute Lymphocytes (1.2-3.4) 10^3/uL 1.29 Absolute Monocytes (0.1-0.8) 10^3/uL 0.35 Absolute Eosinophils (0.0-0.7) 10^3/uL 0.04 Absolute Basophils (0.0-0.2) 10^3/uL 0.05 VBG Lactate (0.6-1.4) mmol/L 1.7 H Sodium (136-145) mmol/L 139 Potassium (3.5-5.1) mmol/L 3.5 Chloride (98-107) mmol/L 103 Carbon Dioxide (21.0-32.0) mmol/L 26.4 Anion Gap (3-11) mmol/L 9.6 BUN (7-18) mg/dL 19 H Creatinine (0.55-1.02) mg/dL 0.9 Est GFR (CKD-EPI 2020) (mL/min/1.73m2) 73.64 Glucose (74-106) mg/dL 159 H Calcium (8.5-10.1) mg/dL 8.8 Total Bilirubin (0.2-1.0) mg/dL 0.2 AST (15-37) U/L 17 ALT (14-59) U/L 32 Alkaline Phosphatase (46-116) U/L 89 Total Protein (6.4-8.2) g/dL 7.5 Albumin (3.4-5.0) g/dL 3.1 L Medical Decision Making This 57 old female presenting for reassessment secondary to report of positive blood culture. Diagnosed several days ago with COVID-19. Blood cultures were reviewed with lab, patient has 1 positive blood culture the remainder are negative at this time. Will recheck blood cultures and order labs. Very mild elevation in lactate, nonspecific and patient has stable vitals and assessment. At this time I suspect the blood culture was a contaminated specimen and patient feels comfortable being discharged home. She is ambulatory with steady gait with stable vitals. Return precautions reviewed and patient expressed understanding. I spent approximately 5 minutes discussing blood cultures with lab, reviewing patient's discharge summary and diagnostic labs. Quality:SDOH Health Related Social Needs: No Data to Display PFSH All Active Problems (Updated 08/04/23 @ 12:03 by HARRY Emerson) COVID-19 (Acute) Positive blood culture (Acute) Nodule on liver (Acute) Multiple thyroid nodules (Acute) COVID-19 (Acute) Thoracic radiculopathy (Acute) Shingles (Acute) Rib pain (Acute) Organizing pneumonia (Acute) C. difficile colitis (Acute) Pleurisy (Acute) Pneumonia (Acute) Shortness of breath (Acute) Pleural effusion on left (Acute) COVID-19 (Acute) Encounter for re-check of laceration wound (Acute) Laceration (Acute) Bronchitis (Acute) Patellar tendonitis of right knee (Chronic) Significant improvement of right patellar tendinitis. Patient is advised to stay away from Cipro or other similar antibiotics because they can predispose to inflammation in the tendons. She also understands that injection of corticosteroid into the patellar tendon is fraught with complications. Follow-up with me as needed Medical History Right shoulder strain 2006 Lumbar strain multiple events:2009,2013,2015,04/2017 Depression Perimenopause Surgical History History of bladder surgery Hx of appendectomy History of x2 Fasciotomy, Foot 2008 for plantar fascitis Family History Father Colon cancer GI bleed. 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
== END 2023-08-04 12:18 | disposition home or self-care (01) ==
PROVIDERS: Emergency Provider Physician Assistant; PCP Nurse Practitioner Family
DX: R78.81 Bacteremia (principal)
CPT/HCPCS: 36410; 80053; 87040; 99281; 83605; 85025; 99282

== ENCOUNTER 2023-09-27 14:44 | Outpatient (CLI) | payer BC, SELFPAY ==
--- NOTE | 2023-09-27 14:15 | DI.RAD_ITS ---
Exam(s) XR PAIN CLINIC THORACIC SP 2V EXAM: XR PAIN CLINIC THORACIC SP 2V CLINICAL HISTORY: DX: Intercostal neuropathic pain. TECHNIQUE: Fluoroscopy was provided for the referring physician for guidance with performing pain cl inic injection procedure. COMPARISON: No exams were available for comparison FINDINGS: Please see procedure note for details. Fluoro time: 76 seconds RADIATION DOSE DELIVERED: nicolas Wilson=10.14 mGy
[2023-09-27 14:56] VITALS: BP 147/77; PULSE 82; RESP 20; TEMP 37.2; O2SAT 97
[2023-09-27 15:15] VITALS: PULSE 86; RESP 17; O2SAT 96
[2023-09-27 15:20] VITALS: PULSE 84; RESP 18; O2SAT 96
[2023-09-27 15:29] VITALS: BP 136/89; PULSE 78; PULSE 86; RESP 18; O2SAT 97
[2023-09-27 15:30] VITALS: PULSE 88; RESP 22; O2SAT 97
[2023-09-27 15:31] VITALS: BP 126/79; PULSE 86; PULSE 87; RESP 16; O2SAT 98
--- NOTE | 2023-09-27 15:40 | PDOC.PAIN ---
Date of service: 09/27/23 Time of Service: 15:40 Pain Managment Procedure Note Procedure Note Procedure Note: Procedure Note Intercostal Nerve Blocks Date of Service: September 27, 2023 Patient:? Mary Figueroa? Provider:? Keven Castillo DO, MPH Mary has been [facility] to [facility] for Intercostal Nerve blocks.? Pre-operative diagnosis: Intercostal neuralgia Post-operative diagnosis: Same Pre-procedure pain: VAS= 7/10 Comments: I previously evaluated her in the office on 08/17/23. I initially recommended a left 6th intercostal nerve block. After I completed this level, it was clear that the problem area was one level down and then I complete the left 7th intercostal nerve block after informing her and getting her approval. Mary was interviewed and the medical record was reviewed.? There were no medical, pharmacologic, radiographic or other structural contraindications to attempting fluoroscopically guided intercostal nerve blocks.? Risks, potential side effects, indications, and potential benefits of the procedure were reviewed with Mary.? Questions and concerns were addressed.? After it was clear that the patient was fully informed about the procedure, the printed consent form was signed by the patient and myself.? Mary was placed in the prone position on the fluoroscopy table and automated blood pressure cuff as well as pulse oximeter was applied. A standard time-out procedure was performed. The skin entry point for entering the left 6th rib approach was identified under fluoroscopy and marked.? The skin entry point was thoroughly cleaned with Chlorhexadine preparation and the skin was draped.? Next a mixture of 2 mls of 1% lidocaine was infiltrated into the area of the planned skin entry point and underlying subcutaneous tissues.? Next a 22G 3.5 spinal needle was placed under fluoroscopic guidance towards the left 6th rib, 5 cm distally.? Upon correct needle placement, there were no paresthesia or return of blood or CSF through the needle. Next I walked he need down and then under the left 6th rib. 1 mls of preservative-free Omnipaque 240 was injected with clear neuronal spread in the A/P views. Next, 5 cc of 0.5% Bupivacaine followed by 10 mg of Dexamethasone and this was followed by 2 cc of 2% Lidcaine. This did not result is significant pain relief and the pain seemed to be lower. I did adjust and complete the same exact procedure at the left 7th Intercostal nerve. The needles were withdrawn without difficulty. (48 mls of Omnipaque and 5 mg of Dexamethasone was wasted) Mary was observed and was without hemodynamic, neurologic, or allergic reactions.? Fluoroscopic images were digitally archived. Mary's vital signs were stable throughout the procedure and were as recorded in the doc flowsheet by the nursing staff.? If given, dosages of intravenous drugs for anxiolysis and analgesia were documented in MAR. Follow up plans and appointments were discussed with Mary.? Post procedure instruction was given as documented in nursing documentation and having met discharge criteria, [facility] ? COMMENTS: No apparent complications. Post-procedure pain: VAS= 0/10. Mary to contact [facility] as needed. If at least 50% improvement in pain and/or function for at least 3 months is achieved, this procedure can be repeated. I personally completed the entire procedure. KEVEN CASTILLO DO, MPH ABPMR-subspecialty board certification in Pain Medicine [facility]
[2023-09-27] MEDS: Bupivacaine 0.5% Pres-Free 10 ML VIAL IJ (15:46)
[2023-09-27] MEDS: Lidocaine 2% Pres-Free 5 ML VIAL IJ (15:46)
[2023-09-27] MEDS: Nerve Block Tray 1 EACH MC (15:46)
[2023-09-27] MEDS: methylPREDNISolone ACETATE 40 MG/ML VIAL IJ (15:46)
[2023-09-27] MEDS: Omnipaque 240 MG/ML 50 ML BTL IJ (15:47)
== END 2023-09-27 14:45 | disposition home or self-care (01) ==
LOC: PC 14:45
PROVIDERS: PCP Nurse Practitioner Family; Visit Provider Preventive Medicine Occupational Medicine
DX: G54.8 Other nerve root and plexus disorders (principal)
CPT/HCPCS: 64420; 64421; 72070; J0665; J1010; Q9967

== ENCOUNTER 2023-10-27 01:00 | Outpatient (CLI) | payer BC, SELFPAY ==
[2023-10-27 07:58] LABS: Hemoglobin A1C 6.1 % (<5.7)
[2023-10-27 08:00] LABS: Calculated LDL 194 mg/dL (<100); Cholesterol 297 mg/dL (<200); HDL Cholesterol 47 mg/dL (40-60); Triglyceride 284 mg/dL (<150)
== END 2023-10-27 01:01 | disposition home or self-care (01) ==
LOC: LBO 01:01
PROVIDERS: PCP Nurse Practitioner Family; Visit Provider Nurse Practitioner Family
DX: Z00.00 Encounter for general adult medical examination without abnormal findings (principal)
CPT/HCPCS: 36415; 80061; 83036

== ENCOUNTER 2023-12-20 12:23 | Outpatient (CLI) | payer BC, SELFPAY ==
[2023-12-20 13:56] LABS: Vitamin B12 746 pg/mL (193-986)
[2023-12-21 09:32] LABS: Lyme Ab w Rflx to Lyme Confirm Negative (Negative)
[2023-12-22 21:47] LABS: Anaplasma phagocytophilum Negative (Negative); B. miyamotoi PCR Negative (Negative); Babesia divergens/MO-1 Negative (Negative); Babesia duncani Negative (Negative); Babesia microti Negative (Negative); Ehrlichia chaffeensis Negative (Negative); Ehrlichia ewingii/canis Negative (Negative); Ehrlichia muris eauclairensis Negative (Negative)
== END 2023-12-20 12:24 | disposition home or self-care (01) ==
LOC: LBO 12:26
PROVIDERS: PCP Nurse Practitioner Family; Visit Provider Nurse Practitioner Family
DX: R20.0 Anesthesia of skin (principal); R20.2 Paresthesia of skin
CPT/HCPCS: 36415; 87798; 82607; 86618

== ENCOUNTER 2024-01-06 16:34 | Emergency (ER) | payer BC, SELFPAY ==
[2024-01-06 16:42] VITALS: BP 164/125; PULSE 114; RESP 22; TEMP 36.6; O2SAT 93
--- NOTE | 2024-01-06 16:45 | DI.RAD_ITS ---
Exam(s) XR HAND RT COMPLETE EXAM: XR HAND RT COMPLETE CLINICAL HISTORY: R thumb crush injury. TECHNIQUE: 2D digital imaging was performed of the right hand. Three images were obtained. AP, late ral and oblique views were obtained. COMPARISON: No exams were available for comparison FINDINGS: BONES: There is an acute nondisplaced comminuted fracture of the terminal tuft of the thumb. There i s an adjacent soft tissue defect in the distal aspect of the thumb is with a question of exposed bone . Please correlate clinically. No bony destructive lesion is seen. JOINTS: No dislocation present. There are degenerative changes seen in the hand and wrist particularl y at the 1st CMC joint. SOFT TISSUE: Normal. IMPRESSION: Comminuted nondisplaced fracture involving the terminal tuft of the thumb. There is a deep soft tiss ue defect in the distal thumb. Please correlate with physical exam for presence of exposed bone. DATA REPOSITORY: RADIATION DOSE DELIVERED:
--- NOTE | 2024-01-06 16:57 | ED.GENADUL_ITS ---
Discharge Plan Disposition Patient Disposition: Home Discharge Details Clinical Impression: Crushing injury of right thumb, Closed fracture of distal phalanx of thumb Primary Care Provider: Jaylin Davis ED Provider: Kate Zepeda Home Meds and New Rx's Prescriptions: New cephalexin 500 mg capsule 500 mg PO QID Qty: 20 0RF hydrocodone-acetaminophen 5-325 mg tablet 1 tab PO Q8H PRNQty: 10 0RF No Action prednisone 20 mg tablet 20 mg PO DAILY Qty: 24 0RF Rx Instructions: take 3 tabs PO QD X 5D then decrease to 2.5 tabs (50mg) PO QDX1, then decrease to 2 tabs (40mg) PO QDX1D, then decrease to 1.5 tabs (30mg) PO QDX1D then decrease to 1 tab (20mg) PO QD X1D then decrease to 0.5 tab (10mg) PO QD X1D then stop. rosuvastatin 10 mg tablet 10 mg PO DAILY Qty: 90 3RF acetaminophen 500 mg capsule 500 mg PO Q6H PRN ciclopirox 8 % solution 1 applic topical QHS 28 Days Qty: 6.6 8RF Rx Instructions: remove with alcohol on each 7th night baclofen 5 mg tablet 5 mg PO QHS Qty: 10 1RF Rx Instructions: 1-2 tabs PO QHS prn back pain/spasm. albuterol sulfate 90 mcg/actuation HFA aerosol inhaler 2 puff inhalation QID PRN (Reason: shortness of breath or wheezing) Qty: 8.5 6RF gabapentin 300 mg capsule 300 mg PO .COMPLEX MDD 1200mg Qty: 120 2RF Rx Instructions: 300 mg orally take 1 capsule BID and 2 capsules at HS; lidocaine 5 % adhesive patch,medicated 1 patch topical DAILY Qty: 30 2RF Rx Instructions: leave on most painful area for up to 12 hrs Discharge Instructions Additional Instructions: Please call orthopedics first thing Monday morning to schedule a follow up appointment with orthopedics. Keep your splint clean and dry. Do not get it wet. This will be removed by Ortho when you see them. Elevate your finger above heart level to help decrease swelling. Apply ice for 15 to 20 minutes at a time every hour or so for swelling/discomfort. I recommend that you use Tylenol 650 mg every 6 hours as needed for discomfort. For severe pain you may use the hydrocodone provided, keeping in mind that this is a limited prescription only for severe pain. Do not drink any alcohol while you are on Tylenol. Return to emergency care if you develop new fever/chills, severe thumb pain, swelling down your hand, foul odor to your thumb, or if you are very worried and need to be rechecked again immediately. Referrals: [facility] [Provider Group] HPI General Date/Time Provider Initiated Documentation: 01/06/24 16:37 . HPI Narrative: Mary is a 58-year-old female who presents to the emergency department today for evaluation of right thumb injury. She reports that she was gardening and a large rock fell on her thumb, crushing it. She presented to the emergency department in significant pain. Bleeding controlled with gauze. She denies history of anticoagulation, immunocompromise, T2DM, bleeding disorder. No other injuries reported. Physical exam remarkable for visibly uncomfortable patient with crush injury to right distal thumb. Complete nail avulsion. Moderate bleeding. Sensation intact, she is able to move the thumb. History and presentation consistent with crush injury with complete nail avulsion; fracture suspected. X-ray remarkable for distal phalanx fracture. Discussed pt presentation and treatment plan with Dr. Contreras, photos shared (see below). Digital block performed with 10 cc 2% lidocaine with good improvement of discomfort, some also infiltrated locally. Injury was extensively irrigated with sterile water/normal saline under pressure, able to visualize base in a bloodless field. Nonviable nail removed, as it was attached only by a thin strip of skin. A 1 cm laceration across the nailbed was noted, this was closed with Dermabond. A T-shaped laceration across the top of the thumb, 2 cm x 1 cm was loosely closed with (3) 5-0 absorbable sutures. Nonstick dressing applied, roll gauze and Coban to cover. Was provided good support to the thumb, no additional splinting necessary. Photos from after laceration repair performed were also shared with orthopedics. While in the emergency department Mary received first dose of cephalexin. A limited number of hydrocodone/APAP given for home use. Patient is not able to tolerate morphine, says that this gave her hallucinations in the past, but has tolerated Percocet previously. Advise close follow-up with orthopedics. Reviewed red flags indicating need for return to emergency care. Related Data Home Medications ?Medication ?Instructions ?Recorded ?Confirmed acetaminophen 500 mg capsule 500 mg PO Q6H PRN 01/18/23 12/29/23 albuterol sulfate 90 mcg/actuation 2 puff inhalation QID PRN 01/18/23 12/29/23 aerosol inhaler shortness of breath or wheezing #8.5 grams gabapentin 300 mg capsule 300 mg PO .COMPLEX #120 caps 09/27/23 12/29/23 lidocaine 5 % topical patch 1 patch topical DAILY #30 ea 12/07/23 12/29/23 prednisone 20 mg tablet 20 mg PO DAILY #24 tabs 12/20/23 12/29/23 rosuvastatin 10 mg tablet 10 mg PO DAILY #90 tabs 12/20/23 12/29/23 ciclopirox 8 % topical solution 1 applic topical QHS 4 weeks #6.6 12/29/23 12/29/23 mL baclofen 5 mg tablet 5 mg PO QHS intercostal neuralgia 01/04/24 01/04/24 #10 tabs cephalexin 500 mg capsule 500 mg PO QID #20 caps 01/06/24 hydrocodone 5 mg-acetaminophen 325 1 tab PO Q8H PRN #10 tabs 01/06/24 mg tablet Previous Rx's ?Medication ?Instructions ?Recorded albuterol sulfate 90 mcg/actuation 2 puff inhalation QID PRN 01/18/23 aerosol inhaler shortness of breath or wheezing #8.5 grams gabapentin 300 mg capsule 300 mg PO .COMPLEX #120 caps 09/27/23 lidocaine 5 % topical patch 1 patch topical DAILY #30 ea 12/07/23 prednisone 20 mg tablet 20 mg PO DAILY #24 tabs 12/20/23 rosuvastatin 10 mg tablet 10 mg PO DAILY #90 tabs 12/20/23 ciclopirox 8 % topical solution 1 applic topical QHS 4 weeks #6.6 12/29/23 mL baclofen 5 mg tablet 5 mg PO QHS intercostal neuralgia 01/04/24 #10 tabs cephalexin 500 mg capsule 500 mg PO QID #20 caps 01/06/24 hydrocodone 5 mg-acetaminophen 325 1 tab PO Q8H PRN #10 tabs 01/06/24 mg tablet Allergies Allergy/AdvReac Type Severity Reaction Status Date / Time sulfamethoxazole (From Allergy Severe Anaphylaxsi Verified 01/06/24 16:46 Bactrim) s trimethoprim (From Bactrim) Allergy Severe Anaphylaxsi Verified 01/06/24 16:46 s General Stated Complaint: Laceration NICK: 3 Review of Systems Narrative: see HPI Exam Const General: cooperative, healthy appearing and well developed Nutritional Appearance: average body habitus Orientation: alert and oriented x3 Resp Effort & Inspection: normal respiratory effort and able to speak in complete sentences Neuro Sensory Exam: no sensory deficits noted Extrem Right upper extremity: hand Details: neurosensory exam normal and normal ROM of fingers Hand/finger images: 2 1. 1 cm horizontal linear nailbed laceration 2. 2 cm flap laceration 3. 1 cm laceration (joined with 2 cm laceration in T shape) Course Vital Signs Vital signs: Vital Signs Temperature 36.6 C 01/06/24 16:42 Pulse 114 H 01/06/24 16:42 Respiratory Rate 22 01/06/24 16:42 Blood Pressure 164/125 H 01/06/24 16:42 Pulse Oximetry 93 01/06/24 16:42 Temperature 36.6 C 01/06/24 16:42 Pulse 114 H 01/06/24 16:42 Respiratory Rate 22 01/06/24 16:42 Blood Pressure 164/125 H 01/06/24 16:42 Pulse Oximetry 93 01/06/24 16:42 Oxygen Delivery Method Room Air 01/06/24 16:42 Oxygen Flow Rate 0 01/06/24 16:42 Procedures Laceration Laceration 1: Site: hand (R thumb) Description: irregular (T shaped) Local anesthetic: Lidocaine 1% Amount of anesthesia used (mL): 10 Pre-repair: wound explored, irrigated extensively and deep structures intact Skin layer closed with: other (absorbable) Size (cm): 5-0 Number of sutures: 3 Technique: simple, interrupted Medical Decision Making Quality:SDOH Health Related Social Needs: 2 No Data to Display PFSH All Active Problems (Updated 01/06/24 @ 19:21 by Kate Gómez) Closed fracture of distal phalanx of thumb (Acute) Crushing injury of right thumb (Acute) Hyperlipidemia (Acute) Facial paresthesia (Acute) Facial numbness (Acute) Claustrophobia (Acute) Family history of brain aneurysm (Acute) Preventative health care (Acute) Abnormal finding on imaging of liver (Acute) Recurrent aphthous stomatitis (Acute) Chronic interstitial cystitis (Acute) Intercostal neuropathic pain (Acute) Thoracic radiculopathy (Acute) Patellar tendonitis of right knee (Chronic) Significant improvement of right patellar tendinitis. Patient is advised to stay away from Cipro or other similar antibiotics because they can predispose to inflammation in the tendons. She also understands that injection of corticosteroid into the patellar tendon is fraught with complications. Follow-up with me as needed Medical History (Updated 01/06/24 @ 19:21 by Kate Gómez) COVID-19 COVID-19 Shingles Rib pain Organizing pneumonia C. difficile colitis Pleurisy Pneumonia Shortness of breath Pleural effusion on left COVID-19 Laceration Bronchitis Right shoulder strain 2006 Lumbar strain multiple events:2009,2013,2015,04/2017 Depression Perimenopause Surgical History History of bladder surgery Hx of appendectomy History of x2 Fasciotomy, Foot 2009 for plantar fascitis Family History (Updated 10/11/23 @ 08:40 by Jaylin Davis APRN) Father Colon cancer GI bleed. 08/2009 Mother Stroke 2011 of brain aneurysm Brain aneurysm of brain aneurysm Daughter Alcohol use disorder Social History Smoking/Tobacco Use Status: Never Smoking risk assessment performed?: Yes Alcohol Intake: never Drug use: Never Substance use type: does not use Household members: spouse and children Housing: house Number of Children: 2 number of grandchildren: 3 Communication Needs: None Education Level: high school Do you need help understanding health information?: Never current occupation: [employer] Sexually active: Yes What is your relationship status?: How often do you talk on the phone with friends or family?: three or more times per week How often do you get together with friends or relatives?: once per week Panel score (0-1 are the most socially isolated patients): 2 What type of physical activity do you participate in: other Details: Grdening, mowing Special ying needs: No Seatbelt use: always Helmet use: Yes Drive intox or ride w/intox 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
[2024-01-06] MEDS: Lidocaine 2% Multi-Dose 20 ML VIAL IJ (19:11)
[2024-01-06] MEDS: Bacitracin 1 PACKET (19:11)
[2024-01-06] MEDS: Cephalexin 500 MG CAP PO (19:45)
[2024-01-06] MEDS: Cephalexin 500 MG CAP, 2 CAPS/BTL PO (19:45)
--- NOTE | 2024-01-08 14:42 | NUR.NOTE ---
Access chart to get the discharge information. Patient changed dressing, and now it is not on very well. She will call Ortho to see if they can redress it for her or she will return to have it redressed. Nursing Note:
--- NOTE | 2024-01-08 15:08 | NUR.NOTE ---
Nursing Note:Patient removed her dressing last night. She is unable to re wrap hand. Patient looking for ways to get hand re wrapped
== END 2024-01-06 19:48 | disposition home or self-care (01) ==
PROVIDERS: Emergency Provider Nurse Practitioner Family; PCP Nurse Practitioner Family
DX: S62.501B Fracture of unspecified phalanx of right thumb, initial encounter for open fracture (principal); Z23 Encounter for immunization; W22.8XXA Striking against or struck by other objects, initial encounter; Y93.H2 Activity, gardening and landscaping; Y92.89 Other specified places as the place of occurrence of the external cause
CPT/HCPCS: 12001; 90471; 90715; 99283; 73130; J2003

== ENCOUNTER 2024-02-21 16:21 | Outpatient (CLI) | payer BC, SELFPAY ==
--- NOTE | 2024-02-21 15:30 | DI.RAD_ITS ---
Exam(s) XR PAIN CLINIC THORACIC SP 2V EXAM: XR PAIN CLINIC THORACIC SP 2V CLINICAL HISTORY: DX: Intercostal neuropathic pain TECHNIQUE: 2D and realtime digital imaging was performed. CONTRAST MATERIAL: Refer to procedure report. COMPARISON: No exams were available for comparison FINDINGS: Fluoroscopy was provided for Dr. Castillo during the performance of a left 7th intercostal nerve block. Please refer to the procedure report for complete details. Ka,r=5.2 mGy IMPRESSION: RADIATION DOSE DELIVERED: 0.0 0.0 0
[2024-02-21 16:40] VITALS: BP 137/91; PULSE 84; RESP 20; TEMP 36.6; O2SAT 97
[2024-02-21 16:59] VITALS: O2SAT 96
[2024-02-21 17:00] VITALS: O2SAT 95
[2024-02-21 17:10] VITALS: O2SAT 93
[2024-02-21] MEDS: Lidocaine 2% Pres-Free 5 ML VIAL IJ (17:21)
[2024-02-21] MEDS: Omnipaque 240 MG/ML 50 ML BTL IJ (17:21)
[2024-02-21] MEDS: methylPREDNISolone ACETATE 40 MG/ML VIAL IJ (17:21)
[2024-02-21] MEDS: Nerve Block Tray 1 EACH MC (17:22)
[2024-02-21] MEDS: Bupivacaine 0.25% Pres-Free 30 ML VIAL IJ (17:22)
--- NOTE | 2024-02-21 17:22 | PDOC.PAIN ---
Date of service: 02/21/24 Time of Service: 17:22 Pain Managment Procedure Note Procedure Note Procedure Note: Pain Managment Procedure Note Procedure Note Procedure Note: Procedure Note Left 7th Intercostal Nerve Block Date of Service: February 21, 2024 Patient:? Mary Figueroa? Provider:? Keven Castillo DO, MPH Mary has been [facility] to [facility] Intercostal Nerve blocks.? Pre-operative diagnosis: Intercostal neuralgia Post-operative diagnosis: Same Pre-procedure pain: VAS= 7/10 Comments: She last had this procedure on 09/27/23 and has had about 50% pain since then. We will again block the left 7th intercostal nerve to try to improve her pain further.. Mary was interviewed and the medical record was reviewed.? There were no medical, pharmacologic, radiographic or other structural contraindications to attempting fluoroscopically guided intercostal nerve blocks.? Risks, potential side effects, indications, and potential benefits of the procedure were reviewed with Mary.? Questions and concerns were addressed.? After it was clear that the patient was fully informed about the procedure, the printed consent form was signed by the patient and myself.? Mary was placed in the prone position on the fluoroscopy table and automated blood pressure cuff as well as pulse oximeter was applied. A standard time-out procedure was performed. The skin entry point for entering the left 6th rib approach was identified under fluoroscopy and marked.? The skin entry point was thoroughly cleaned with Chlorhexadine preparation and the skin was draped.? Next a mixture of 2 mls of 1% lidocaine was infiltrated into the area of the planned skin entry point and underlying subcutaneous tissues.? Next a 22G 3.5 spinal needle was placed under fluoroscopic guidance towards the left 7th rib, 5 cm distally.? Upon correct needle placement, there were no paresthesia or return of blood or CSF through the needle. Next I walked he need down and then under the left 7th rib. 1 mls of preservative-free Omnipaque 240 was injected with clear neuronal spread in the A/P views. Next, 5 cc of 0.5% Bupivacaine followed by 10 mg of Dexamethasone and this was followed by 2 cc of 2% Lidcaine. This did result in significant pain relief. The needles were withdrawn without difficulty. (49 mls of Omnipaque and 5 mg of Dexamethasone was wasted) Mary was observed and was without hemodynamic, neurologic, or allergic reactions.? Fluoroscopic images were digitally archived. Mary's vital signs were stable throughout the procedure and were as recorded in the doc flowsheet by the nursing staff.? If given, dosages of intravenous drugs for anxiolysis and analgesia were documented in MAR. Follow up plans and appointments were discussed with Mary.? Post procedure instruction was given as documented in nursing documentation and having met discharge criteria, [facility]. ? COMMENTS: No apparent complications. Post-procedure pain: VAS= 3/10. Mary to contact [facility] as needed. If at least 50% improvement in pain and/or function for at least 3 months is achieved, this procedure can be repeated. I personally completed the entire procedure. KEVEN CASTILLO DO, MPH ABPMR-subspecialty board certification in Pain Medicine [facility]
== END 2024-02-21 16:22 | disposition home or self-care (01) ==
LOC: PC 16:21
PROVIDERS: PCP Nurse Practitioner Family; Visit Provider Preventive Medicine Occupational Medicine
DX: G54.8 Other nerve root and plexus disorders (principal)
CPT/HCPCS: 64420; 72070; J0665; J1010; Q9967

== ENCOUNTER 2024-02-23 00:52 | Outpatient (CLI) | payer BC, SELFPAY ==
[2024-02-23 08:21] LABS: Calculated LDL 111 mg/dL (<100); Cholesterol 196 mg/dL (<200); HDL Cholesterol 72 mg/dL (40-60); Triglyceride 69 mg/dL (<150)
[2024-02-23 08:30] LABS: C-Reactive Protein 0.51 mg/dL (<or=0.5)
== END 2024-02-23 00:53 | disposition home or self-care (01) ==
LOC: LBO 00:59
PROVIDERS: PCP Nurse Practitioner Family; Visit Provider Nurse Practitioner Family
DX: R20.0 Anesthesia of skin (principal); R20.2 Paresthesia of skin; E78.5 Hyperlipidemia, unspecified
CPT/HCPCS: 36415; 80061; 86140

== ENCOUNTER 2024-04-12 13:55 | Outpatient (CLI) | payer OTHER, SELFPAY ==
--- NOTE | 2024-04-12 11:30 | DI.RAD_ITS ---
Exam(s) XR CHEST 2V PA LATERAL EXAM: XR CHEST 2V PA LATERAL CLINICAL HISTORY: increase sob, r/o pneumonia, R06.02. TECHNIQUE: 2D digital imaging was performed. COMPARISON: CT CT CHEST PE CTA from 12/05/2022 CR XR CHEST 2V PA LATERAL from 12/27/2022 CR XR CHEST 2V PA LATERAL from 07/14/2023 FINDINGS: 2 views: Heart size is normal. The mediastinum is not widened. Right lung is clear. There is platelike atelectasis or scarring in the lingular segment of the left lung, similar to previ ous of June 2023 and actually slightly decreased in size from chest x-ray of December 2022. There is mild blunting of left costophrenic angle either related to a small pleural effusion or possi eusebio pleural scarring, given the findings which were evident on the CT scan of 12/05/2022. IMPRESSION: Left lung base findings as above. DATA REPOSITORY: RADIATION DOSE DELIVERED:
== END 2024-04-12 14:15 ==
PROVIDERS: PCP Nurse Practitioner Family; Visit Provider Nurse Practitioner Family
DX: J98.11 Atelectasis (principal)
CPT/HCPCS: 71046

== ENCOUNTER 2024-05-16 11:04 | Outpatient (CLI) | payer OTHER, SELFPAY ==
--- NOTE | 2024-05-16 06:00 | DI.RAD_ITS ---
Exam(s) XR PAIN CLINIC THORACIC SP 2V EXAM: XR PAIN CLINIC THORACIC SP 2V CLINICAL HISTORY: DX: Intercostal Neuralgia. TECHNIQUE: Fluoroscopy was provided for the referring physician for guidance with performing pain cl inic injection procedure. COMPARISON: No exams were available for comparison FINDINGS: Please see procedure note for details. Fluoro time: 33 seconds RADIATION DOSE DELIVERED: nicolas Wilson=5.09 mGy
[2024-05-16 11:08] VITALS: BP 127/77; PULSE 76; RESP 20; TEMP 36.7; O2SAT 97
[2024-05-16 11:32] VITALS: PULSE 71; RESP 15; O2SAT 97
[2024-05-16 11:38] VITALS: BP 135/86; PULSE 74; PULSE 76; RESP 16; O2SAT 95
[2024-05-16 11:40] VITALS: PULSE 74; PULSE 76; RESP 21; O2SAT 95
[2024-05-16] MEDS: Bupivacaine 0.25% Pres-Free 30 ML VIAL IJ (11:51)
[2024-05-16] MEDS: Lidocaine 2% Pres-Free 5 ML VIAL IJ (11:51)
[2024-05-16] MEDS: Omnipaque 240 MG/ML 50 ML BTL IJ (11:51)
[2024-05-16] MEDS: Nerve Block Tray 1 EACH MC (11:52)
--- NOTE | 2024-05-16 11:54 | PDOC.PAIN ---
Date of service: 05/16/24 Time of Service: 11:54 Pain Managment Procedure Note Procedure Note Procedure Note: Pain Managment Procedure Note Procedure Note Procedure Note: Procedure Note Left 7th Intercostal Nerve Block Date of Service: May 16, 2024 Patient:? Mary Figueroa? Provider:? Keven Castillo DO, MPH Mary has been referred to the [facility] for Intercostal Nerve blocks.? 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 We will again block the left 7th intercostal nerve to try to improve her pain further. Since this procedure is so close to her last one, no steroid will be used. Mary was interviewed and the medical record was reviewed.? There were no medical, pharmacologic, radiographic or other structural contraindications to attempting fluoroscopically guided intercostal nerve blocks.? Risks, potential side effects, indications, and potential benefits of the procedure were reviewed with Mary.? Questions and concerns were addressed.? After it was clear that the patient was fully informed about the procedure, the printed consent form was signed by the patient and myself.? Mary was placed in the prone position on the fluoroscopy table and automated blood pressure cuff as well as pulse oximeter was applied. A standard time-out procedure was performed. The skin entry point for entering the left 6th rib approach was identified under fluoroscopy and marked.? The skin entry point was thoroughly cleaned with Chlorhexadine preparation and the skin was draped.? Next a mixture of 2 mls of 1% lidocaine was infiltrated into the area of the planned skin entry point and underlying subcutaneous tissues.? Next a 22G 3.5 spinal needle was placed under fluoroscopic guidance towards the left 7th rib, 5 cm distally.? Upon correct needle placement, there were no paresthesia or return of blood or CSF through the needle. Next I walked he need down and then under the left 7th rib. 1 mls of preservative-free Omnipaque 240 was injected with clear neuronal spread in the A/P views. Next, 5 cc of 0.5% Bupivacaine followed by 10 mg of Dexamethasone and this was followed by 2 cc of 2% Lidcaine. This did result in significant pain relief. The needles were withdrawn without difficulty. (49 mls of Omnipaque and 5 mg of Dexamethasone was wasted) Mary was observed and was without hemodynamic, neurologic, or allergic reactions.? Fluoroscopic images were digitally archived. Mary's vital signs were stable throughout the procedure and were as recorded in the doc flowsheet by the nursing staff.? If given, dosages of intravenous drugs for anxiolysis and analgesia were documented in MAR. Follow up plans and appointments were discussed with Mary.? Post procedure instruction was given as documented in nursing documentation and having met discharge criteria, aMry was [facility] from the [facility]. ? COMMENTS: No apparent complications. Post-procedure pain: VAS= 3/10. Mary to contact [facility] as needed. If at least 50% improvement in pain and/or function for at least 3 months is achieved, this procedure can be repeated. I personally completed the entire procedure. KEVEN CASTILLO DO, MPH ABPMR-subspecialty board certification in Pain Medicine [facility] Coding Conscious Sedation used for procedure: No CPT Codes: Intercostal Nerve, Single - 45832 ([id number] ~G) Fluoroscopic guidance (non spine inj.) - 43817 ([id number] ~G) Additional Codes: Date of Service (27347) Date of service: 05/16/24
== END 2024-05-16 11:05 | disposition home or self-care (01) ==
PROVIDERS: PCP Nurse Practitioner Family; Visit Provider Preventive Medicine Occupational Medicine
DX: G58.0 Intercostal neuropathy (principal)
CPT/HCPCS: 64420; 72070; J0665; Q9967

== ENCOUNTER 2024-06-24 01:59 | Outpatient (CLI) | payer OTHER, SELFPAY ==
--- NOTE | 2024-06-24 06:45 | DI.MAMMO_ITS ---
Exam(s) MAMMO SCREENING EXAM: MAMMO SCREENING CLINICAL HISTORY: screening,z12.31 TECHNIQUE: Mammograms were interpreted according to the usual protocol including computer analysis w [employer] CAD system, tomosynthesis and C-view imaging. COMPARISON: 2017 and 2022 FINDINGS: The breasts are composed of scattered fibroglandular densities, Breast Density category B. No suspicious masses or suspicious microcalcifications are seen. No skin thickening or abnormal axillary lymph nodes are seen. There has been no significant change from prior exams. IMPRESSION: BI-RADS Category 1, Negative mammogram Yearly screening mammography is recommended. Breast Density - Category B, scattered fibroglandular densities. A negative radiographic report should not delay biopsy if a dominant or clinically suspicious mass is present. Up to ten percent of cancers are not identified on mammography. A negative report may reinforce clinical impression. Adenosis and dense breasts may obscure an underlying neoplasm. False positive reports average 6 to 10%. Patient will receive a letter notifying them of these results.
== END 2024-06-24 02:19 ==
LOC: DI 01:59
PROVIDERS: PCP Nurse Practitioner Family; Visit Provider Nurse Practitioner Family
DX: Z12.31 Encounter for screening mammogram for malignant neoplasm of breast (principal); R92.323 Mammographic fibroglandular density, bilateral breasts
CPT/HCPCS: 77063; 77067

== ENCOUNTER 2024-08-26 01:44 | Outpatient (CLI) | payer OTHER, SELFPAY ==
--- NOTE | 2024-08-26 | DI.MRI_ITS ---
Exam(s) MR THORACIC SPINE WO EXAM: MR THORACIC SPINE WO CLINICAL HISTORY: Radicular pain of thoracic region, M54.14 TECHNIQUE: Multiplanar multisequence MRI of the thoracic spine was performed without intravenous con trast. COMPARISON: MR MR THORACIC SPINE WO from 01/27/2023 FINDINGS: OSSEOUS: There are no acute appearing thoracic vertebral fractures. However, there are Modic type 1 s ub endplate marrow edema changes now evident in the sub endplate region of the anterior aspects of T1 2-L1, and there are anterior osteophytes at this level which have increased in size from 2022. there is no significant disc herniation at this level nor spinal canal stenosis. Benign intraosseous hemangiomas are noted in the posterior aspect of T6 as well as in T11 and T12 eunice tebral bodies. THORACIC SPINAL CORD: There is no abnormal signal in the cervical spinal cord and no evidence of foca l cord atrophy nor focal cord swelling. There is no evidence of syringomyelia nor significant spinal cord dysraphism. There is no evidence of mass at the conus medullaris. The position of the conus me dullaris is at T12-L1 level. SIGNIFICANT INDIVIDUAL LEVEL FINDINGS: T5-6: There is a small central subligamentous disc bulge. no large disc herniation. central canal d imensions are within normal limits. no foraminal stenosis. T8-9: Small posterolateral left disc protrusion. Slightly indents the anterior thecal sac but not th e spinal cord at this level. No central canal stenosis and no foraminal stenosis at this level. PARASPINAL TISSUES: Small cyst noted in the posterior cortex of the left kidney. IMPRESSION: 1. Compared to the prior MRI scan of January 2023 there are now Modic type 1 sub endplate marrow tae nges at T12-L1 level where there also anterior osteophytes which have increased in size. No discitis at this level. Posteriorly at this level there is no significant disc herniation or central canal s tenosis and no evidence of foraminal stenosis. 2. There are small disc protrusions at T5-6 and T8-9 levels noted, not associated with significant ce ntral spinal canal stenosis nor foraminal stenosis at these levels. 3. No abnormal signal in the thoracic spinal cord and no evidence of focal cord swelling nor focal co rd masses nor focal cord atrophy. Also no evidence of syringomyelia in the thoracic spinal cord. Co nus medullaris appears unremarkable. DATA REPOSITORY:
== END 2024-08-26 02:04 ==
LOC: DI 01:44
PROVIDERS: PCP Nurse Practitioner Family; Visit Provider Physician Assistant Surgical
DX: M51.24 Other intervertebral disc displacement, thoracic region (principal)
CPT/HCPCS: 72146

== ENCOUNTER 2024-10-28 13:15 | Emergency (ER) | payer OTHER, SELFPAY ==
[2024-10-28 13:21] VITALS: BP 103/65; PULSE 98; RESP 16; TEMP 36.8; O2SAT 95
--- NOTE | 2024-10-28 14:00 | DI.CT_ITS ---
Exam(s) CT ABDOMEN PELVIS W EXAM: CT ABDOMEN PELVIS W CLINICAL HISTORY: left lower abdominal pain TECHNIQUE: Imaging Protocol: Axial computed tomography images with coronal and sagittal reformatted images were created and reviewed. CONTRAST MATERIAL: Intravenous: Omnipaque 350 Contrast volume:75 mL Oral: No COMPARISON: CT CT CHEST PE CTA from 12/05/[address] CHEST PE CTA from 08/03/2023 FINDINGS: ABDOMEN: Lung Bases: No acute abnormality. Liver: Normal density. There is a simple cyst in the left lobe of the liver. No suspicious hepatic masses are present. Portal, Superior Mesenteric, and Splenic Veins: Unremarkable. Gallbladder and Biliary Tract: Cholelithiasis. No biliary ductal dilatation is present. Pancreas: Normal density, no abnormal calcifications or inflammatory process. Spleen: Normal. Adrenals: No masses seen. Kidneys: Normal size, contour and axis. No radiodense stones or obstructive uropathy. There is a simple cyst in the left kidney. No follow-up is recommended. Abdominal Aorta: Abdominal portion non-dilated. Mild atherosclerotic calcification is present. Bowel: There is diverticulosis of the colon. There is inflammation seen in the proximal sigmoid colon with bowel wall thickening and pericolonic inflammatory changes. The findings are consistent with acute diverticulitis. There is no abscess or free air. There is no evidence of bowel obstruction. There is no evidence of appendicitis. Peritoneal Cavity: No ascites, collection or mesenteric inflammatory response. No free air. Lymph Nodes: Within normal limits. Bones: Within normal limits for the patient's age. Soft Tissues: There is a small fat containing umbilical hernia. PELVIS: Bladder: Symmetric distention, no gross wall thickening. Reproductive Organs: Unremarkable as visualized. Lymph Nodes: Within normal limits. Bones: Within normal limits for the patient's age. IMPRESSION: 1. Findings consistent with proximal sigmoid diverticulitis. There is no abscess or free air. 2. Cholelithiasis. No biliary ductal dilatation is present. RADIATION DOSE DELIVERED: 573.3mGy.cm Total DLP DATA REPOSITORY: All CT scans at this facility are submitted to the National Radiology Data Registry (NRDR) Dose Index Registry (DIR) with the [employer] (ACR). RADIATION OPTIMIZATION: All CT scans at this facility use at least one of these dose optimization techniques: automated exposure control; mA and/or kV adjustment per patient size (includes targeted exams where dose is matched to clinical indication); or iterative reconstruction.
[2024-10-28 14:10] LABS: Glucose Negative (Negative)
--- NOTE | 2024-10-28 14:11 | ED.GENADUL_ITS ---
Discharge Plan Disposition Patient Disposition: Home Condition: Stable Discharge Details Clinical Impression: Diverticulitis, Abdominal pain Primary Care Provider: Jaylin Davis ED Provider: Milad Braun Home Meds and New Rx's Prescriptions: New amoxicillin-pot clavulanate 875-125 mg tablet 1 tab PO BID Qty: 14 0RF Continued rosuvastatin 10 mg tablet 10 mg PO DAILY Qty: 90 3RF acetaminophen 500 mg capsule 500 mg PO Q6H PRN ciclopirox 8 % solution 1 applic topical QHS 28 Days Qty: 6.6 8RF Rx Instructions: remove with alcohol on each 7th night albuterol sulfate 90 mcg/actuation HFA aerosol inhaler 2 puff inhalation QID PRN (Reason: shortness of breath or wheezing) Qty: 8.5 6RF lidocaine 5 % adhesive patch,medicated 1 patch topical DAILY Qty: 30 2RF Rx Instructions: leave on most painful area for up to 12 hrs gabapentin 300 mg capsule See Rx Instructions .ROUTE .COMPLEX Qty: 120 0RF Dose Instruction: TAKE ONE CAPSULE BY MOUTH TWICE A DAY AND TAKE TWO CAPSULES BY MOUTH EVERY EVENING AT BEDTIME Rx Instructions: TAKE ONE CAPSULE BY MOUTH DAILY AND TAKE TWO CAPSULES BY MOUTH EVERY EVENING AT BEDTIME Discharge Instructions Instructions: Diverticulitis Additional Instructions: Your CAT scan showed you have diverticulitis. This can be treated with just oral antibiotics. You are improving in a week follow-up with your primary care provider. You should also discuss with them about potentially having a colonoscopy. If you feel more ill, have new symptoms such as high fevers or severe worsening pain return to the emergency department for reevaluation. HPI General Mode of arrival: ambulatory . Date/Time Provider Initiated Documentation: 10/28/24 13:57 . Limitations to Documentation: no limitations . Information obtained by: patient . History of Present Illness 59 year old F presents to the emergency department with the chief complaint of llq abdominal pain, described as moderate, Quality is described as sharp, and is localized to the abdomen. Patient reports no radiation. Patient started experiencing this day(s) (1) and it has been constant. No relieving factors improve symptom(s), No exacerbating factors reported . Patient notes denies chest pain and shortness of breath. 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/20/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 #30 ea gabapentin 300 mg capsule See Rx Instructions .Route 0 10/07/24 .COMPLEX #120 caps amoxicillin 875 mg-potassium 1 tab PO BID #14 tabs 02/11 clavulanate 125 mg tablet Previous Rx's ?Medication ?Instructions ?Recorded rosuvastatin 10 mg tablet 10 mg PO DAILY #90 tabs 100 05/13 ciclopirox 8 % topical solution 1 applic topical QHS 4 weeks #6.6 12/29/23 mL albuterol sulfate 90 mcg/actuation 2 puff inhalation Q ID PRN 03/29/24 aerosol inhaler shortness of breath or wheez ing #8.5 grams lidocaine 5 % topical patch 1 patch topical 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/20/24 pain #30 ea gabapentin 300 mg capsule See Rx Instructions .Route 0 10/07/24 .COMPLEX #120 caps amoxicillin 875 mg-potassium 1 tab PO BID #14 tabs 02/11 clavulanate 125 mg tablet Allergies Allergy/AdvReac Type Severity Reaction Status Date / Time sulfamethoxazole (From Allergy Severe Anaphylaxsi Verified 10/28/24 13:27 Bactrim) s trimethoprim (From Bactrim) Allergy Severe Anaphylaxsi Verified 10/28/24 13:27 s General Stated Complaint: Abd Prob NICK: 3 Review of Systems All systems reviewed & are unremarkable except as noted in HPI and below Constitutional Constitutional: Denies chills and Denies fever(s) Cardiovascular Cardiovascular: Denies chest pain and Denies dyspnea Respiratory Respiratory: Denies cough and Denies dyspnea Gastrointestinal Gastrointestinal: Reports abdominal pain and Denies vomiting Exam Const General: no acute distress Orientation: alert HENVA Head: normal to inspection Ears: external ears normal General nose exam: external nose normal Mouth: moist mucous membranes Eyes General: appearance normal, both eyes and all related structures Neck Neck: normal visual inspection Resp Effort & Inspection: normal respiratory effort and able to speak in complete sentences Cardio Rate: regular rate GI Palpation: soft, not firm, no guarding and tender Skin General skin exam: no rashes or lesions noted Neuro General: patient alert and patient oriented x3 Extrem General: normal to inspection Psych Mental Status: mental status grossly normal Course Vital Signs Vital signs: Vital Signs Temperature 36.8 C 10/28/24 13:21 Pulse 98 H 10/28/24 13:21 Respiratory Rate 16 10/28/24 13:21 Blood Pressure 103/65 10/28/24 13:21 Pulse Oximetry 95 10/28/24 13:21 Temperature 36.8 C 10/28/24 13:21 Temperature Source Oral 10/28/24 13:21 Pulse 98 H 10/28/24 13:21 Respiratory Rate 16 10/28/24 13:21 Blood Pressure 103/65 10/28/24 13:21 Blood Pressure Position Sitting 10/28/24 13:21 Pulse Oximetry 95 10/28/24 13:21 Oxygen Delivery Method Room Air 10/28/24 13:21 Oxygen Flow Rate 0 10/28/24 13:21 Pain Level 5 10/28/24 13:21 Comment took Tylenol ~ 10am 10/28/24 13:21 Lab/Test Results Lab/Test Results: Laboratory Tests Range/Units 10/28/24 13:58 Urine Color (Yellow) Yellow Urine Clarity (Clear) Clear Urine pH (5-8) 5.5 Ur Specific [place] (1.005-1.025) 1.025 Urine Protein (Neg-Trace) mg/dL Trace Urine Ketones (Negative) mg/dL Negative Urine Blood (Negative) Negative Urine Nitrite (Negative) Negative Urine Bilirubin (Negative) Negative Urine Urobilinogen (Up to 0.2) mg/dL 0.2 Ur Leukocyte Esterase (Negative) Negative Urine Glucose (Negative) mg/dL Negative Medical Decision Making 59-year-old female with history of hyperlipidemia with prior appendectomy comes in with chief complaint of left lower quadrant abdominal pain. He states his pain started yesterday and has slowly been worsening. She denies any high fevers, no chest pain or difficulty breathing, no vomiting. She is well- appearing on exam in no distress. Her abdomen is soft and nondistended. He has tenderness to the left lower quadrant without guarding, otherwise there is no tenderness elsewhere in the abdomen. Given the location of the pain I suspect diverticulitis, will check a CBC, CMP and lipase and UA and obtain a CT abdomen pelvis to further evaluate. Labs without emergent findings, CT shows simple diverticulitis. Patient is stable. Will start her on augmentin and she will follow-up with her pcp if not improving. Return precautions given Differential Diagnosis Differential Diagnosis: Diverticulitis, pancreatitis PFSH All Active Problems (Updated 10/28/24 @ 16:41 by Milad Braun MD) Abdominal pain (Acute) Diverticulitis (Chronic) Breast cancer screening by mammogram (Acute) Shortness of breath on exertion (Acute) Hyperlipidemia (Acute) Claustrophobia (Acute) Family history of brain aneurysm (Acute) Preventative health care (Acute) Abnormal finding on imaging of liver (Acute) Recurrent aphthous stomatitis (Acute) Chronic interstitial cystitis (Acute) Intercostal neuropathic pain (Acute) Thoracic radiculopathy (Acute) Patellar tendonitis of right knee (Chronic) Significant improvement of right patellar tendinitis. Patient is advised to stay away from Cipro or other similar antibiotics because they can predispose to inflammation in the tendons. She also understands that injection of corticosteroid into the patellar tendon is fraught with complications. Follow-up with me as needed Medical History Facial paresthesia Facial numbness COVID-19 COVID-19 Shingles Rib pain Organizing pneumonia C. difficile colitis Pleurisy Pneumonia Shortness of breath Pleural effusion on left COVID-19 Laceration Bronchitis Right shoulder strain 2006 Lumbar strain multiple events:2009,2013,2015,04/2017 Depression Perimenopause Surgical History History of bladder surgery Hx of appendectomy History of x2 Fasciotomy, Foot 2008 for plantar fascitis Family History Father Colon cancer GI bleed. 08/2009 Mother Stroke 2011 of brain aneurysm Brain aneurysm of brain aneurysm Daughter Alcohol use disorder Social History Smoking/Tobacco Use Status: Never Smoking risk assessment performed?: Yes Alcohol Intake: never Drug use: Never Substance use type: does not use Household members: spouse and children Housing: house Number of Children: 2 number of grandchildren: 3 Communication Needs: None Education Level: high school Do you need help understanding health information?: Never current occupation: [employer] Sexually active: Yes What is your relationship status?: How often do you talk on the phone with friends or family?: three or more times per week How often do you get together with friends or relatives?: once per week Panel score (0-1 are the most socially isolated patients): 2 What type of physical activity do you participate in: other Details: Grdening, mowing Special ying needs: No Seatbelt use: always Helmet use: Yes Drive intox or ride w/intox corporate driver: No Do you feel safe at home: Yes Do you feel safe in your relationship?: Yes Victim of physical abuse: No Victim of emotional abuse: No Victim of sexual abuse: No Would you like helpful sources: No
[2024-10-28 14:23] LABS: Abs Immature Grans 0.02 10^3/uL (0.0-0.06); HCT 42.5 % (36.0-46.0); HGB 13.9 g/dL (11.2-15.7); Immature Grans % 0.2 %; MCH 29.1 pg (27.0-33.0); MCHC 32.7 % (32.0-36.0); MCV 89 fL (80-95); MPV 10.7 fL (8.0-11.0); Platelet Count 217 10^3/uL (130-400); RBC 4.78 10^6/uL (3.93-5.22); RDW 12.6 % (11.7-14.6); RDW-SD 41.3 fL; WBC 8.25 10^3/uL (4.4-10.8)
[2024-10-28] MEDS: ACETAMINOPHEN 1,000 MG/100 ML BAG 400 MG IVPB (14:33)
[2024-10-28] MEDS: Normal Saline Flush 10 ML SYR IVP (14:34)
[2024-10-28 15:28] LABS: ALT 31 U/L (14-59); AST 18 U/L (15-37); Albumin 3.6 g/dL (3.4-5.0); Alkaline Phosphatase 99 U/L (46-116); Anion Gap 7.9 mmol/L (3-11); BUN 26 mg/dL (7-18); Bilirubin, Total 0.2 mg/dL (0.2-1.0); CO2 28.1 mmol/L (21.0-32.0); Calcium 9.0 mg/dL (8.5-10.1); Chloride 103 mmol/L (98-107); Estimated GFR 64.09 (mL/min/1.73m2); Glucose 114 mg/dL (74-106); Magnesium 2.0 mg/dL (1.8-2.4); Potassium 4.0 mmol/L (3.5-5.1); Sodium 139 mmol/L (136-145); Total Protein 7.7 g/dL (6.4-8.2)
[2024-10-28] MEDS: Normal Saline - Diluent 50 ML VIAL IJ (16:04)
[2024-10-28] MEDS: Omnipaque 350 MG/ML 100 ML BTL IJ (16:05)
[2024-10-28] MEDS: Amoxicillin 875/Clav. 125 TAB PO (17:00)
[2024-10-28 17:17] LABS: Lipase 43 U/L (<78)
== END 2024-10-28 17:10 | disposition home or self-care (01) ==
PROVIDERS: Emergency Provider Emergency Medicine; PCP Nurse Practitioner Family
DX: R10.32 Left lower quadrant pain; K57.30 Diverticulosis of large intestine without perforation or abscess without bleeding
CPT/HCPCS: 80053; 83690; 96365; 99285; 74177; 81003; 83735; 85025; 99284; J0131; J3490

== ENCOUNTER 2024-12-11 17:47 | Outpatient (REF) | payer OTHER, SELFPAY ==
[2024-12-12 12:36] LABS: Campylobacter PCR Negative (Negative); Shiga Toxin PCR Negative (Negative); Shigella/Enteroinvasive Ecoli Negative (Negative)
[2024-12-13 13:26] LABS: Helicobacter pylori Ag, Feces Negative (Negative)
== END 2024-12-11 17:48 | disposition home or self-care (01) ==
LOC: LBN 17:47
PROVIDERS: PCP Nurse Practitioner Family; Visit Provider Nurse Practitioner Family
DX: R19.7 Diarrhea, unspecified (principal)
CPT/HCPCS: 87015; 87269; 87272; 87338; 87505; 82272; 83630

== ENCOUNTER 2025-01-15 06:36 | Day surgery (SDC) | payer OTHER, SELFPAY ==
[2025-01-15 07:11] VITALS: BP 115/105; PULSE 75; RESP 22; TEMP 36.5; O2SAT 97
[2025-01-15] MEDS: Lactated Ringers 1,000 ML 80 ML IV (07:20)
--- NOTE | 2025-01-15 07:47 | ANES.PREOP_ITS ---
General Info Date of Service Date Performed: 01/15/25 Height: 4 ft 11 in Weight: 76.1 kg Body Mass Index (BMI): 33.8 Surgical Procedure: Operation Date: 01/15/25 08:35 Proposed Procedure Side Surgeon p Colonoscopy Nikky Sanders MD Meds Allergies and Home Medications Allergies Allergy/AdvReac Type Severity Reaction Status Date / Time sulfamethoxazole (From Allergy Severe Anaphylaxsi Verified 01/13/25 12:45 Bactrim) s trimethoprim (From Bactrim) Allergy Severe Anaphylaxsi Verified 01/13/25 12:45 s Home Medication Medication Instructions Recorded acetaminophen 500 mg capsule 500 mg PO Q6H PRN 3 ciclopirox 8 % topical solution 1 applic topical QHS 4 weeks #6.6 12/29/23 mL albuterol sulfate 90 mcg/actuation 2 puff inhalation Q ID PRN 03/29/24 aerosol inhaler shortness of breath or wheez ing #8.5 grams lidocaine 5 % topical patch 1 patch 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/20/24 pain #30 ea naltrexone 1.5 mg capsule 1.5 mg PO TID 11/20/24 rosuvastatin 10 mg tablet See Rx Instructions .Route 0 12/10/24 .COMPLEX #90 tabs bisacodyl 5 mg tablet,delayed 5 mg PO ONCE colonscopy bowel prep 12/17/24 release (Dulcolax (bisacodyl)) #4 tabs polyethylene glycol 3350 17 238 g PO ONCE colonoscopy prep 12/17/24 gram/dose oral powder #238 grams Current Visit Medications: Current Medications Generic Name Dose Route Start Last Admin Trade Name Tia PRN Reason Stop Dose Admin Ringer's Solution 1,000 mls @ 80 mls/hr 01/15/25 06:00 01/15/25 07:20 IV 01/15/25 23:59 80 mls/hr INFUSION RAFAEL Administration IV Miscellaneous Supplies 1 each 01/15/25 06:00 Iv Access IV 01/15/25 23:59 DIRECTED RAFAEL Sodium Chloride 0 ml 01/15/25 06:00 Normal Saline Flush 10 Ml Syr IV 01/15/25 23:59 PRN PRN Sodium Chloride 0 ml 01/15/25 06:00 Normal Saline 10 Ml Vial IJ 01/15/25 23:59 DIRECTED PRN Sterile Water 0 ml 01/15/25 06:00 Water,Injection,Sterile 10 Ml Vial IJ 01/15/25 23:59 DIRECTED PRN PFSH Active Problems Active Problems: Problem Status Onset Code Breast cancer screening by mammogram Acute Z12.31 Shortness of breath on exertion Acute R06.02 Hyperlipidemia Acute E78.5 Claustrophobia Acute F40.240 Family history of brain aneurysm Acute Z82.49 Preventative health care Acute Z00.00 Abnormal finding on imaging of liver Acute R93.2 Recurrent aphthous stomatitis Acute K12.0 Chronic interstitial cystitis Acute N30.10 Intercostal neuropathic pain Acute G54.8 Thoracic radiculopathy Acute M54.14 Encounter for re-check of laceration wound Resolved Patellar tendonitis of right knee Chronic M76.51 Medical History Medical History Hx of diverticulitis of colon Facial paresthesia Facial numbness COVID-19 COVID-19 Shingles Rib pain Organizing pneumonia C. difficile colitis Pleurisy Pneumonia Shortness of breath Pleural effusion on left COVID-19 Laceration Bronchitis Right shoulder strain 2006 Lumbar strain multiple events:2009,2013,2015,04/2017 Depression Perimenopause Medical History Comments:: Hx of very anxious episode in a past surgery resulting in her getting hysterical coming out of sedation if spouse not present. Requests spouse to be in PACU when she awakes. Surgical History Surgical History History of bladder surgery Hx of appendectomy History of x2 Fasciotomy, Foot 2009 for plantar fascitis Tobacco Smoking/Tobacco Use Status: Never Alcohol Alcohol Intake: never Substance Use Substance use: Never Substance use type: does not use Vital Signs and Lab Results Vital Signs Most Recent Vital Signs in EMR: Most Recent Vital Signs Temp Pulse Resp BP Pulse Ox 36.5 C 75 22 115/105 H 97 01/15/25 07:11 01/15/25 07:11 01/15/25 07:11 01/15/25 07:11 01/15/25 07:11 Imaging and Studies Imaging and Studies Study information below may be from another EMR and interpreted by another provider. Please see original notes in EMR for more complete details. EKG Summary: 08/10:Conclusion Sinus tachycardia...rate> 99 Echocardiogram Summary: 02/09:Conclusion The left ventricular wall thickness and chamber size. Ejection fraction is 55%. Wall motion is normal Normal right ventricular size and systolic function Both atria are normal in size There is no structural or hemodynamically significant valvular disease Estimated right ventricular systolic pressure is 32 mmHg Anesthesia Assessment and Plan Anesthesia History Personal History: No History of Anesthesia Complications Family History: No Family History of Anesthesia Complications Exercise Tolerance Exercise Tolerance: Metabolic Equivalents>4 Pertinent Negatives Pertinent Negatives: No Symptoms of GERD and No Major Cardiovascular Symptoms or Complaints Cardiac & Pulmonary Exam Cardiac Exam: Normal S1/S2 Heart Sounds Pulmonary Exam: Clear Bilateral Breath Sounds Implantable Cardiac Device Does patient have a Pacemaker or an ICD?: No Airway Exam Known Difficult Airway: No Mallampati Class: 2 Mouth Opening: Normal (> 3cm) Thyromental Distance: Less than 3 cm Neck Range of Motion: Full ROM Neck Circumference: Normal Teeth Condition: Normal Dentition ASA Classification ASA Score: ASA 2 Emergency Case?: No NPO Status NPO Status: NPO Clears >2 hours, Solids >8 hours Anesthesia Plan Resuscitation Status: Full Code Anesthesia Technique: General Anesthesia Airway Planned: Natural Airway Monitors Used: Standard Monitors
[2025-01-15 07:49] VITALS: BMI 33.8
--- NOTE | 2025-01-15 08:31 | PDOC.DSDIS_ITS ---
Date of service: 01/15/25 Discharge Plan Disposition Patient Disposition: Home Condition: Good Discharge Details Reason For Visit: History of diverticulitis Attending Provider: Nikky Sanders Primary Care Provider: Jaylin Davis Home Meds and New Rx's Prescriptions: Continued acetaminophen 500 mg capsule 500 mg PO Q6H PRN ciclopirox 8 % solution 1 applic topical QHS 28 Days Qty: 6.6 8RF Rx Instructions: remove with alcohol on each 7th night naltrexone 1.5 mg capsule 1.5 mg PO TID Patient Comments: [facility] ([facility] through [facility]) Taking for nerve damage r/t pleurisy albuterol sulfate 90 mcg/actuation HFA aerosol inhaler 2 puff inhalation QID PRN (Reason: shortness of breath or wheezing) Qty: 8.5 6RF lidocaine 5 % adhesive patch,medicated 1 patch topical DAILY Qty: 30 2RF Rx Instructions: leave on most painful area for up to 12 hrs rosuvastatin 10 mg tablet See Rx Instructions .ROUTE .COMPLEX Qty: 90 3RF Dose Instruction: TAKE ONE TABLET BY MOUTH EVERY DAY Rx Instructions: TAKE ONE TABLET BY MOUTH EVERY DAY Discontinued bisacodyl [Dulcolax (bisacodyl)] 5 mg tablet,delayed release (DR/EC) 5 mg PO ONCE Qty: 4 0RF Rx Instructions: take per colonoscopy instructions polyethylene glycol 3350 17 gram/dose powder 238 g PO ONCE Qty: 238 0RF Rx Instructions: take per colonoscopy instructions Discharge Instructions Additional Instructions: Your colonoscopy went well today. You had one small area of diverticulosis however the remainder of the colon appeared normal. The recommendation would be to have a repeat colonoscopy in 10 yrs. Please contact the general surgery office if you have any questions or concerns. 1. If tolerated, consume a soft, low fiber diet for 1-2 days. 2[address] Do not drive, drink alcohol, operate machinery, make critical decisions, or do activities that require coordination or balance for 24 hours. 3. Because air was put into your colon during the procedure, expelling air from your rectum (passing gas or farting) is normal. 4. You may not have a bowel movement for 1-3 days because of the colonoscopy prep. This is normal. 5. Go directly to the emergency room if you notice any of the following: Develop chills (warm to touch), or if you have a thermometer and your temperature is above 101 Difficulty breathing or difficultly swallowing Persistent vomiting Severe abdominal pain, other than gas cramps Severe chest pain Black, tarry stools Any bleeding – exceeding one tablespoon 6. Call your physician if the site where your intravenous was started becomes red, swollen, painful, and warm to touch. 7. Your physician has reviewed your pre-procedure medications. Please continue to take those medications as previously ordered. You will be given specific information/education regarding any changes to your medications before leaving. Stand Alone Forms: Anesthesia Discharge InstYi Díaz (DSU) Activity:: Activity as Tolerated Diet:: As Tolerated Discharge Orders Discharge Orders: Discharge Order (Routine); Ordered 01/15/25 Ordered By: Nikky Sanders
[2025-01-15 08:32] VITALS: BP 121/68; PULSE 77; RESP 18; TEMP 36.3; O2SAT 98
--- NOTE | 2025-01-15 08:34 | W.COLOREPORT ---
Date of service: 01/15/25 Time of Service: 08:34 Colonoscopy Report Date of procedure: 01/15/25 Pre-op diagnosis general: History of diverticulitis Post-op diagnosis procedure note: other (Diverticulosis ) Procedure: Colonoscopy Surgeon: Nikky Sanders Anesthesia Type: General:No Airway Estimated blood loss (mL): 1 Pathology: none sent Complications: None Disposition: PACU Indications: Patient is a 59 yo female who had a recent episode of diverticulitis who presents for a colonoscopy. She has not had a previous colonoscopy but has had negative cologuard. Prep: Miralax/Dulcolax Procedure Start Time: 08:15 Procedure End Time: 08:27 Retraction Time: 8 Findings: Evidence of small area of diverticulosis in sigmoid colon. Otherwise normal colonoscopy. Procedure Description: Informed consent was obtained. The patient was taken to the endoscopy suite and placed in the left lateral decubitus position. After adequate intravenous sedation, digital rectal exam was performed, which was normal. A colonoscope was inserted into the rectum and easily negotiated to the cecum. The ileocecal valve and appendiceal orifice were identified. The entire colonic mucosa was then carefully circumferentially inspected upon slow withdrawal of the scope. The entire colon appeared normal. In the sigmoid colon, there was a small area of diverticulosis. Retroflexion in the rectum was unremarkable. The patient tolerated the procedure well with no complications. Postoperatively, the patient was transferred to the recovery room in stable condition. [place] Bowel Prep [place] Bowel Prep Right Colon: 3 Left Colon: 3 Transverse Colon: 3 Total Score: 9
[2025-01-15 09:04] VITALS: BP 132/97; PULSE 62; RESP 20; TEMP 36.2; O2SAT 100
--- NOTE | 2025-01-15 11:19 | W.ANESPOSTOP ---
Postoperative Evaluation Date, Time and Location Date Performed: 01/15/25 Time Performed: 08:40 Patient Location: Day Surgery Unit Vital Signs Most Recent Imported Vital Signs: Most Recent Vital Signs Temp Pulse Resp BP Pulse Ox 36.2 C L 62 20 132/97 H 100 01/15/25 09:04 01/15/25 09:04 01/15/25 09:04 01/15/25 09:04 01/15/25 09:04 Pain Score Most Recent Pain Score: Most Recent Pain Score Pain Level 0 01/15/25 09:04 Assessment Mental Status: Awake (Alert & Oriented to Patient Baseline) Airway and Respiratory Function: Patent airway with normal (patient baseline) respiratory exam Cardiovascular Function: Hemodynamically Stable Hydration Status: Adequately Hydrated Nausea & Vomiting: No Nausea or Vomiting Pain: Pt. Denies Any Pain Peripheral Nerve Block: Patient did not receive a nerve block
== END 2025-01-15 09:24 | disposition home or self-care (01) ==
PROVIDERS: PCP Nurse Practitioner Family; Visit Provider Student in an Organized Health Care Education/Training Program
PROC: 0DJD8ZZ Inspection of Lower Intestinal Tract, Via Natural or Artificial Opening Endoscopic (ICD-10-PCS; CPT 45378; principal; 2025-01-15 08:30)
DX: K57.30 Diverticulosis of large intestine without perforation or abscess without bleeding (principal)
CPT/HCPCS: 45378; J2704

== ENCOUNTER 2025-02-27 01:35 | Outpatient (CLI) | payer OTHER, SELFPAY ==
[2025-02-27 08:46] LABS: Hemoglobin A1C 5.9 % (<5.7)
[2025-02-27 09:51] LABS: Cholesterol 163 mg/dL (<200); HDL Cholesterol 48 mg/dL (>40)
== END 2025-02-27 01:36 | disposition home or self-care (01) ==
LOC: LBO 01:35
PROVIDERS: Absent Provider Nurse Practitioner Family; PCP Nurse Practitioner Family; Referring Provider Nurse Practitioner Family; Visit Provider Nurse Practitioner Family
DX: Z00.00 Encounter for general adult medical examination without abnormal findings (principal); E78.5 Hyperlipidemia, unspecified
CPT/HCPCS: 36415; 80061; 83036

== ENCOUNTER 2025-03-04 09:10 | Outpatient (REF) | payer OTHER, SELFPAY | END 2025-03-04 09:11 | disposition home or self-care (01) | LOC: LBN 09:10 | PROVIDERS: PCP Nurse Practitioner Family; Visit Provider Nurse Practitioner Family | DX: Z12.4 Encounter for screening for malignant neoplasm of cervix (principal) | CPT/HCPCS: 88142; 87624 ==